=== PATIENT | female | born 1950 | race Caucasian/White ===

== ENCOUNTER → 2016-11-12 | Outpatient (CLI) | payer BC ==
[~2016-11-12] MED LIST: ASPCH81X PO; ATV1 PO; CLOP1TAB15 PO; CYAN50TA2 PO; MULT-506 PO; SNG10 PO; [UNRECOGNIZED DRUG - CODE] PO
== END | disposition home or self-care (01) ==
LOC: C.PAPS 14:55
PROVIDERS: ATTEND Obstetrics & Gynecology
DX: Z01.419 Encounter for gynecological examination (general) (routine) without abnormal findings (principal)

== ENCOUNTER → 2017-01-14 | Outpatient (CLI) | payer BC | END | disposition home or self-care (01) | LOC: C.LAB1850 11:10 | PROVIDERS: ATTEND Family Medicine | DX: Z11.59 Encounter for screening for other viral diseases (principal) ==

== ENCOUNTER → 2017-01-28 | Day surgery (SDC) | payer BC ==
[2017-01-15 15:02] VITALS: Ht 165.1 cm; Wt 54.5 kg
[~2017-01-28] VITALS: Ht 165.1 cm; Wt 54.5 kg
[~2017-01-28] MED LIST changes: +IOPAMIDOL INJ 61% 15 ML VIAL ONE; +LIDOCAINE HCL 1% MPF 5 ML VIAL ONE; +SODIUM CHLORIDE 0.9% INJ 10 ML VIAL ONE
--- NOTE | 2017-01-28 14:19 | History & Physical Bridge - [place] ---
H&P Re-Evaluation Bridge Note: I have examined the patient, reviewed the History & Physical and in the interval since the performance of the History & Physical I have noted the following changes of clinical significance: No changes noted
[2017-01-28 14:47] VITALS: TEMP 37.7
--- NOTE | 2017-01-28 14:48 | Discharge Instructions ---
Discharge Instructions Date of Service Jan 28, 2017. Visit Reason for Visit: Lumbar Radiculopathy Discharge Discharge Diagnosis / Problem: right buttocks pain Discharge Goals Goal(s): Decrease discomfort, Improve function Activity Recommendations Activity Limitations: resume your previous activity Anesthesia . Post Anesthesia Instructions: If you have had General Anesthesia or IV Sedation: * Do not drive today. * Resume driving when surgeon permits. * Do not make important decisions or sign legal documents today. * Call surgeon for: 1. Temperature elevations greater than 101 degrees F. 2. Uncontrollable pain. 3. Excessive bleeding. 4. Persistent nausea and vomiting. 5. Medication intolerance (nausea, vomiting or rash). * For nausea and vomiting use only clear liquids such as: tea, soda, bouillon until nausea subsides, then gradually increase diet as tolerated. * If you have any concerns or questions, call your surgeon's office. If physician is unavailable and it is an emergency, call 911 or go to the nearest emergency room. . Diet Recommendations Recommended Home Diet: resume previous diet Procedures Procedures Performed: Lumbar Epidural Steroid Injection Pending Studies Studies pending at discharge: no Medical Emergencies . Who to Call and When: Medical Emergencies: If at any time you feel your situation is an emergency, please call 911 immediately. . Non-Emergent Contact Non-Emergency issues call your: Specialist . . "Provider Documentation" section prepared by Martin Cruz. .
--- NOTE | 2017-01-28 14:58 | OPERATIVE REPORT ---
DATE OF OPERATION: 01/28/2017 PREOPERATIVE DIAGNOSIS: L5-S1 annular tear with right proximal radiculopathy. POSTOPERATIVE DIAGNOSIS: Same. PROCEDURE: Caudal epidural steroid injection under fluoroscopic guidance. INDICATIONS: The patient is a 66-year-old white female who has previously responded favorably to epidurals done about 3 years ago. She is describing burning pain into the buttocks area which is likely coming from an L5-S1 annular tear. She presents today for an epidural injection and will be given via the caudal approach as she is on Plavix with a history of a brain aneurysm. PHYSICAL EXAMINATION: Pleasant female seated comfortably. She has tenderness to palpation over the flank area and the top of the buttocks area, SI joint is nontender. She has normal motor and sensory exam with negative seated straight leg raises. CONSENT: Verbal and written consent was obtained from the patient. Risks and benefits were reviewed. Risks include but are not limited to abscess and allergic reaction. The patient wishes to proceed. PROCEDURE: The patient was taken back to the special procedures room of the [facility] where she was maintained in a prone position. Backside was cleansed with Betadine x3 and a dry sterile dressing was applied. Fluoroscope was used to identify the sacral hiatus in the lateral view and the overlying skin was anesthetized with 3 mL of lidocaine 1% with a 25 gauge 1.5-inch needle. A 25 gauge 3.5 inch spinal needle was then directed into the sacral canal under lateral fluoroscopic guidance. The patient then underwent injection after negative aspiration of 40 mg of Depo-Medrol and 4 mL of preservative free sodium chloride. Injection was well tolerated. DISPOSITION: 1. The patient is taken out into the discharge recovery area where she will be discharged home once discharge criteria have been met. 2. Follow up in the [facility] office in 4 weeks' time. I attest to the content of the Intraoperative Record and any orders documented therein. Any exception s are noted below.
[2017-01-28 15:00] VITALS: BP 108/66; PULSE 65; O2SAT 97
== END | disposition home or self-care (01) ==
LOC: X.SURG 13:53
PROVIDERS: ATTEND Physical Medicine & Rehabilitation
DX: M51.17 Intervertebral disc disorders with radiculopathy, lumbosacral region (principal)

== ENCOUNTER → 2017-02-06 | Outpatient (CLI) | payer BC ==
[~2017-02-06] MED LIST changes: -IOPAMIDOL INJ 61% 15 ML VIAL ONE; -LIDOCAINE HCL 1% MPF 5 ML VIAL ONE; -SODIUM CHLORIDE 0.9% INJ 10 ML VIAL ONE
--- NOTE | 2017-02-06 11:11 | DIAGNOSTIC IMAGING REPORT ---
RIGHT KNEE 4 VIEWS; LEFT KNEE 4 VIEWS CLINICAL HISTORY: Bilateral knee pain. FINDINGS: An AP standing view of both knees, a tunnel view of both knees, a sunrise view of both knees, with lateral views of the right and left knee are compared to study dated 10/01/2015. The skeletal structures are osteopenic. No fracture is seen. Right knee: There is mild narrowing seen in the medial lateral compartments. Mild to moderate narrowing is noted at the patellofemoral articulation. No joint effusion is identified. There is no evidence of osteochondral defect on the tunnel image. Mild posterior soft tissue edema is suggested. Left knee: There is mild degenerative narrowing in the medial and lateral compartments. Mild to moderate narrowing is seen at the patellofemoral articulation. A calcified fabella is incidentally noted. There is no evidence of osteochondral defect in the tunnel image. No large joint effusion is identified. The overlying soft tissues are within normal limits. IMPRESSION: 1. Generalized osteopenia. No acute bony abnormality is seen in either knee. 2. Mild arthritic change as above. 3. Soft tissue edema is suggested posterior to the right knee. Clinical correlation will be required. Electronically signed by: Baldomero Jules M.D. 02/06/2017 11:09 AM Dictated Date/Time: 02/06/2017 11:06 AM
== END | disposition home or self-care (01) ==
LOC: C.RDSM 13:58
PROVIDERS: ATTEND Physician Assistant
DX: M25.561 Pain in right knee (principal); M85.862 Other specified disorders of bone density and structure, left lower leg; M85.861 Other specified disorders of bone density and structure, right lower leg

== ENCOUNTER → 2017-04-14 | Outpatient (CLI) | payer BC ==
--- NOTE | 2017-04-15 07:55 | MAMMOGRAPHY REPORT ---
BILATERAL DIGITAL SCREENING MAMMOGRAM TOMOSYNTHESIS WITH CAD: 04/14/2017 CLINICAL HISTORY: Routine screening. Patient has no complaints. TECHNIQUE: Breast tomosynthesis in addition to standard 2D mammography was performed. Current study was also evaluated with a Computer Aided Detection (CAD) system. COMPARISON: Comparison is made to exams dated: 04/11/2016 mammogram, 04/09/2015 mammogram, 09/21/2014 ma mmogram, 09/18/2014 mammogram, 03/04/2012 mammogram, and 02/27/2011 mammogram - [facility]. BREAST COMPOSITION: The tissue of both breasts is heterogeneously dense, which may obscure small mas ses. FINDINGS: There is a stable dumbbell-shaped metallic biopsy marker in the upper outer quadrant of the left breast. Stable grouped round and punctate microcalcifications in the posterior retroareolar ri ght breast. No new suspicious mass, architectural distortion or cluster of microcalcifications is se en. IMPRESSION: ACR BI-RADS CATEGORY 1: NEGATIVE There is no mammographic evidence of malignancy. A 1 year screening mammogram is recommended. The pa tient will receive written notification of the results. Approximately 10% of breast cancers are not detected with mammography. A negative mammographic report should not delay biopsy if a clinically suggestive mass is present. Ayde Joe M.D. ay/:04/14/2017 16:15:51 Documentation Writer: Carey CUNHA(Fam)([employer])([place]), [facility] letter sent: Normal 1/2 BI-RADS Code: ACR BI-RADS Category 1: Negative
== END | disposition home or self-care (01) ==
LOC: C.MAMM 10:58
PROVIDERS: ATTEND Obstetrics & Gynecology
DX: Z12.31 Encounter for screening mammogram for malignant neoplasm of breast (principal)

== ENCOUNTER → 2017-05-29 | Outpatient (CLI) | payer BC ==
[2017-05-29 10:42] LABS: BASO % 0.5 %; BASO ABS # 0.03 K/uL (0-0.2); COMPLETE YES; EOS % 2.5 %; HEMATOCRIT 44.1 % (37-47); IG% 0.2 %; LYMPH % 37.9 %; LYMPH ABS # 2.47 K/uL (1.2-3.4); MEAN CELL VOLUME 89.8 fL (80-100); MEAN CORPUSCULAR HEMOGLOBIN 29.3 pg (25-34); MEAN CORPUSCULAR HGB CONC 32.7 g/dl (32-36); MEAN PLATELET VOLUME 9.3 fL (7.4-10.4); MONO % 7.7 %; NEUT % 51.2 %; PLATELET COUNT 199 K/uL (130-400); RED BLOOD COUNT 4.91 M/uL (4.2-5.4); WHITE BLOOD COUNT 6.52 K/uL (4.8-10.8)
[2017-05-29 12:22] LABS: ALB/GLOB RATIO 1.4 (0.9-2); ALKALINE PHOSPHATASE 63 U/L (45-117); BLOOD UREA NITROGEN 13 mg/dl (7-18); BUN/CREATININE RATIO 18.4 (10-20); CALCIUM 8.9 mg/dl (8.5-10.1); CARBON DIOXIDE 24 mmol/L (21-32); CHLORIDE 108 mmol/L (98-107); CHOLESTEROL 167 mg/dl (0-200); CHOLESTEROL/HDL RATIO 2.3; CREATININE 0.71 mg/dl (0.60-1.20); GLUCOSE 90 mg/dl (70-99); HDL CHOLESTEROL 74 mg/dl; LDL CHOLESTEROL CALCULATED 75 mg/dl; POTASSIUM 4.4 mmol/L (3.5-5.1); SODIUM 141 mmol/L (136-145); TRIGLYCERIDES 88 mg/dl (0-150); VERY LOW DENSITY LIPOPROT CALC 18 mg/dl
[2017-05-29 12:28] LABS: ALT/SGPT 21 U/L (12-78); AST/SGOT 15 U/L (15-37); TOTAL IRON BINDING CAPACITY 368 mcg/dl (250-450)
== END | disposition home or self-care (01) ==
LOC: C.LAB1850 09:22
PROVIDERS: ATTEND Nurse Practitioner Adult Health
DX: F51.5 Nightmare disorder (principal); G47.9 Sleep disorder, unspecified; R42 Dizziness and giddiness; J45.909 Unspecified asthma, uncomplicated

== ENCOUNTER → 2017-11-17 | Outpatient (CLI) | payer BC | END | disposition home or self-care (01) | LOC: C.PAPS 07:59 | PROVIDERS: ATTEND Obstetrics & Gynecology | DX: Z01.419 Encounter for gynecological examination (general) (routine) without abnormal findings (principal) ==

== ENCOUNTER → 2017-12-30 | Day surgery (SDC) | payer BC ==
[2017-12-08 14:53] VITALS: Ht 165.1 cm; Wt 54.5 kg
[~2017-12-30] VITALS: Ht 165.1 cm; Wt 54.5 kg
[~2017-12-30] MED LIST changes: -ASPCH81X PO; +ASPI-435; -ATV1 PO; +BIOT1CAP3 PO; +CHOL100010 PO; +LIDOCAINE HCL 1% MPF 5 ML VIAL ONE; +LORA-741 PO; +MONT1TAB3 PO; -SNG10 PO; +SODIUM CHLORIDE 0.9% INJ 10 ML VIAL ONE
--- NOTE | 2017-12-30 14:21 | [facility] Post Operative Brief Note ---
Immediate Operative Summary Operative Date December 30, 2017. Pre-Operative Diagnosis LUMBAR DISC DISEASE WITH RECENT RIGHT LOWER EXTREMITY EXACERBATION Post-Operative Diagnosis LUMBAR DISC DISEASE WITH RECENT RIGHT LOWER EXTREMITY EXACERBATION Procedure(s) Performed CAUDAL EPIDURAL STEROID INJECTION Surgeon DR. Kate BLANCO Presser [employer] Surgeon(s) None Estimated Blood Loss 0 Findings Consistent with Post-Op Diagnosis Specimens NA Drains None Anesthesia Type Local Complication(s) none Disposition Disposition:
--- NOTE | 2017-12-30 14:22 | Discharge Instructions ---
Discharge Instructions Date of Service December 30, 2017. Visit Reason for Visit: Lumbar Radiculopathy Discharge Discharge Diagnosis / Problem: right leg pain Discharge Goals Goal(s): Decrease discomfort, Improve function Activity Recommendations Activity Limitations: resume your previous activity Anesthesia . Post Anesthesia Instructions: If you have had General Anesthesia or IV Sedation: * Do not drive today. * Resume driving when surgeon permits. * Do not make important decisions or sign legal documents today. * Call surgeon for: 1. Temperature elevations greater than 101 degrees F. 2. Uncontrollable pain. 3. Excessive bleeding. 4. Persistent nausea and vomiting. 5. Medication intolerance (nausea, vomiting or rash). * For nausea and vomiting use only clear liquids such as: tea, soda, bouillon until nausea subsides, then gradually increase diet as tolerated. * If you have any concerns or questions, call your surgeon's office. If physician is unavailable and it is an emergency, call 911 or go to the nearest emergency room. . Diet Recommendations Recommended Home Diet: resume previous diet Procedures Procedures Performed: CAUDAL EPIDURAL STEROID INJECTION Pending Studies Studies pending at discharge: no Medical Emergencies . Who to Call and When: Medical Emergencies: If at any time you feel your situation is an emergency, please call 911 immediately. . Non-Emergent Contact Non-Emergency issues call your: Specialist . . "Provider Documentation" section prepared by Martin Cruz. .
[2017-12-30 14:25] VITALS: TEMP 36.3
[2017-12-30 14:50] VITALS: BP 108/67; PULSE 71; O2SAT 96
--- NOTE | 2017-12-30 15:56 | OPERATIVE REPORT ---
DATE OF OPERATION: 12/30/2017 PREOPERATIVE DIAGNOSIS: Lumbar disc disease with right lower extremity, rule out L5 radiculopathy. POSTOPERATIVE DIAGNOSIS: Lumbar disc disease with right lower extremity, rule out L5 radiculopathy. PROCEDURE: Caudal epidural steroid injection under fluoroscopic guidance. INDICATIONS: The patient is a 67-year-old white female. She has responded favorably to caudal epidurals in the past, last one was given at the end of summer or early fall and she has done very well. She is having increasing radicular pain and presents today for an injection. PHYSICAL EXAMINATION: Pleasant female, seated comfortably, moving her leg in a mainly flexed position. She had some mild sciatic notch sensitivity on the right side, limitations with forward flexion. No focal weakness. Positive seated straight leg raise. CONSENT: Verbal and written consent was obtained from the patient. Risks and benefits were reviewed. Risks include but are not limited to epidural abscess and allergic reaction. The patient wishes to proceed. DESCRIPTION OF PROCEDURE: The patient was taken back to the special procedures room of the [facility] where she was maintained in a prone position. Backside was cleansed with Betadine x3 and a dry sterile dressing was applied. Fluoroscope was used to identify the sacral hiatus and the overlying skin was anesthetized with 2 mL of lidocaine 1% with a 25 gauge 1.5-inch needle. A 25 gauge 3.5 inch spinal needle was then directed under lateral fluoroscopic guidance into the sacral hiatus into the canal. She then underwent injection after negative aspiration of 40 mg of Depo-Medrol and 4 mL of preservative free sodium chloride. Injection was well tolerated. DISPOSITION: 1. The patient is taken out into the discharge recovery area where she will be discharged home once discharge criteria met. 2. Follow up in the [facility] office in 4 weeks' time. I attest to the content of the Intraoperative Record and any orders documented therein. Any exception s are noted below.
== END | disposition home or self-care (01) ==
LOC: X.SURG 13:21
PROVIDERS: ATTEND Physical Medicine & Rehabilitation
DX: M51.36 Other intervertebral disc degeneration, lumbar region (principal); M54.16 Radiculopathy, lumbar region; Z79.02 Long term (current) use of antithrombotics/antiplatelets; Z79.899 Other long term (current) drug therapy

== ENCOUNTER 2023-10-30 06:10 | Observation (INO) ==
--- NOTE | 2023-10-30 07:07 | Emergency Department Note ---
Impression & Plan Chest pain ED Provider Note ED Provider Note NAME: YANCY KIM AGE:73 SEX: Female : 1950 ARRIVES VIA: Private vehicle INFORMANT: Patient ED PROVIDER(s): Kelly Eastman DO CHIEF COMPLAINT: Chest pain HPI: This is a 73-year-old female who presents emerged from due to concern for intermittent episodes of chest pain over the last week. She states she and her were in [place] last week where they typically winter and she had a sudden episode in the middle the night of sharp central chest pain with radiation into bilateral arms where she felt dizzy, sweaty, and nauseous. She states this occurred while she was seated on the toilet, but she denies pushing or straining. She states symptoms lasted about 5 minutes and then began to ranjith. She states she was very tired the whole next day and had a recurrent episode the following night with similar symptoms and time frame. She states it recurred a second time the following night and she went to the emergency department in [place]. at bedside presents records from there including labs and CTA of her coronary arteries. Patient's labs and imaging reassuring with only mild atherosclerotic changes noted on the CT of her coronaries. Patient was instructed to begin taking low-dose aspirin, daily Lipitor, and increase her Protonix to twice daily until she could be seen in follow-up. Patient does have a history of GERD and does take Protonix daily. She had not noticed any increase in GERD like symptoms recently, no recent dietary change. Patient does not routinely follow with cardiology. She did see cable stretcher and tester, rheumatology, and orthopedics yesterday as part of other previously scheduled evaluations. She does have a history of Raynaud's. No other recent change in activity or trauma. No recent fevers, chills, or URI symptoms. PAST MEDICAL HISTORY:See Below PAST SURGICAL HISTORY:See Below FAMILY HISTORY:See Below SOCIAL HISTORY:See Below HOME MEDICATIONS:See Below ALLERGIES:See Below VITALS:See Below PHYSICAL EXAMINATION: GENERAL: alert, well appearing, well nourished, no distress, non-toxic EYE EXAM: normal conjunctiva, PERRL and EOM's grossly intact OROPHARYNX: no exudate, no erythema, lips, buccal mucosa, and tongue normal and mucous membranes are moist NECK: supple, no nuchal rigidity, no adenopathy, non-tender LUNGS: Clear to auscultation. Normal chest wall mechanics, no w/r/r HEART: no murmurs, S1 normal and S2 normal, no reproducible pain with palpation ABDOMEN: abdomen soft, non-tender, normo-active bowel sounds, no masses, no rebound or guarding. SKIN: no rashes, petechiae, orbruising UPPER EXTREMITIES: upper extremities are grossly normal. FROM, nml pulses b/l. LOWER EXTREMITIES: No pitting edema. FROM, nml pulses b/l. NEURO EXAM: Normal sensorium, cranial nerves II-XII grossly intact, normal speech, no facial droop,nogross weakness of arms, no gross weakness of legs. Gross sensation intact. No ataxia. Vital Signs: reviewed and remarkable Differential Diagnosis: acute coronary syndrome, pericarditis, pulmonary embolus, aortic dissection, pneumonia, pneumothorax, musculoskeletal pain, shingles, GERD, GI bleed, as well as others were considered MEDICAL DECISION MAKING: THis is a 73 yo female who presents with intermittent, brief, self limiting episodes of sharp central chest pain over the course of the last week that were not all related to exertion. VS stable, patient afebrile, and she was pain free on my evaluation. Labs drawn and sent, IV established, EKG performed and interpreted at bedside, and patient placed on telemetry. GIven consideration for additional etiology, we discussed CTA of her chest. Initial troponin negative and patient sent for CTA. Patient did have one episode of pain here. We did give her maalox in case of GI component given atypical quality of episodes. Labs and imaging reassuring and I contacted Dr. Guzman via Orestes text to ask about availability of stress testing today. This was arranged, 2nd troponin drawn and sent, and patient sent for stress test. Troponin came back elevated compared to the first and cards notified. Echo performed instead and cardiology consulted. Cardiology felt patient should have cardiac cath and did advise initiation of heparin while awaiting cath. Patient remained stable in the ER. We did discuss risks of heparin but given likely short term use this afternoon until cath I felt benefits outweigh risks. Late afternoon when patient was being moved to ICU bed that was available, she developed vaginal bleeding. VS stable and patient had no other c/o pain. Heparin paused for patient to be transferred as given she had an available bed in a higher level of monitoring and likely bleeding from site noted by cable stretcher and tester yesterday, I felt patient was better served in the ICU and that this was less likely to be life threatening. I notified hospitalist of this change as nursing staff did not notify them and we did not know how quickly she was going to be taken for cath. Consultation(s): 1100: Discussed with Dr. Guzman, cardiology, via [facility]restes text. 1148: Dr. Guzman has seen in consult. Recommends medical admission and plan for cardiac catheterization this afternoon. 1236: Discussed with Dr. Corona, [place] hospitalist, for additional evaluation. ER Treatment Provided: See below Diagnostics Interpreted By Me: -ECG: Normal sinus at 71, normal axis, normal intervals, no acute ST/T wave changes -Cardiac Monitoring: An order was placed for continuous cardiac monitoring. The monitor shows a rate of 80 with normal sinus rhythm. -Laboratory studies: As stated above and show below. Triage Nursing Note Reviewed Prior/Outside Records Reviewed Critical Care: Critical care of 48 min performed to assess and manage high likelihood of life- threatening CAD, involving labs and imaging performed with assessment to evaluate chest pain diagnosis with frequent reassessment. This time includes bedside time, treatment discussions with patient/family/consultants, documentation time and excludes procedure time. Past Med/Surg History Medical History Vertigo Lumbar radiculopathy Degenerative disc disease Hx of basal cell carcinoma Chronic back pain GERD (gastroesophageal reflux disease) Scoliosis Osteoarthritis Actinic keratosis HX Asthma SINGULAR CONTROLS AND PRN inhaler, uses < once month, only triggered by allergens Cerebral arterial aneurysm (Carotid-ophthalmic artery region), treated initially with a Pipeline flow diverter 08/2015, with re-do 02/2017 when aneurysm did not occlude ([facility]). Second opinion 09/2019, MRA showed persistent flow into the aneurysm, although smaller than previous. Last neurosurg visit 04/10/20 -- discussed retreatment with new flow diverter device vs continued observation; pt considering options, to f/u in 1 year. LAST NEURO VISIT - OCTOBER 2021 - ANNEURSYM GOT SMALLER FOR THE FIRST TIME IN 5 YR Mammogram abnormal Osteopenia Tinnitus of both ears Surgical History History of hysteroscopy S/P aneurysm repair brain aneurysm repair x 2 in 2015 & 2017; reports still an aneurysm present and [place] [facility]; last check 03/2020. LAST CHECK OCTOBER 2021 MRA'S EVERY 6 MON TO EVERY YR - MOST RECENT MRA OCTOBER 2021 Difficult airway for intubation small airway per pt History of esophagogastroduodenoscopy (EGD) (06/2019) Family history of reaction to anesthesia MOTHER-CONFUSION/DELERIUM POST OP AFTER OPEN HEART SURGERY/VALVE REPLACEMENTS History of breast biopsy BENIGN Lumbar spine tumor REMOVED "BENIGN" History of colonoscopy (06/2013) History of rhinoplasty History of tonsillectomy History of section 1985 Family History Father Colorectal cancer Mother Myocardial infarction Heart disease Cerebral aneurysm Grandmother (Maternal) Breast cancer Denies family history of Ovarian cancer Prostate cancer Social History Smoking Status: Never smoker Second Hand Exposure: No; Hx Alcohol Use: Yes Alcohol type: wine and hard liquor Alcohol Intake Frequency: 2-3 x/Week Hx Substance Use: No Preferred Language: [place] Communication Ability: Effective Visual Impairment: No Limitations Hearing Ability: Normal Barrel Leveler Required: No Beliefs That Will Affect Care: Yarsani Yarsani Beliefs: Yazdanism marital status: Current Living Situation: Spouse current occupational status: retired How many Children do You have: 1 Feels Safe at Home: Yes Childhood Exposure to Second-Hand Smoke: Yes Diet: regular caffeine: Yes during the past year weight has: increased > 10 lbs Dental Care, Regularly: Yes Physical Activity Frequency: Daily Seatbelt Use: always Sunscreen Use: Yes Assistive Devices: Glasses Allergies Allergies Allergy/AdvReac Type Severity Reaction Status Date / Time No Known Allergies Allergy Verified 10/29/23 14:54 Home Meds Home Medications Medication Instructions Recorded Confirmed acyclovir 5 % topical ointment 1 appln topical UD PRN herpes 05/25/19 10/30/23 labialis #1 g cholecalciferol (vitamin D3) 125 4,000 units PO QAM 05/25/19 10/30/23 mcg (5,000 unit) tablet cyanocobalamin (vitamin B-12) 100 2,000 mcg PO QAM 05/25/19 10/30/23 mcg tablet fluticasone propionate 50 2 sprays intranasal UD PRN nasal 05/25/19 10/30/23 mcg/actuation nasal congestion spray,suspension hydrocortisone acetate 25 mg 25 mg ID UD PRN hemorrhoids #60 ea 05/25/19 10/30/23 rectal suppository sodium chloride 0.65 % nasal spray 1 sprays intranasal UD PRN dry 05/25/19 10/30/23 aerosol nasal passages Lactobacillus acidophilus 10 10,000 mmu cells PO DAILY 12/05/20 10/30/23 billion cell capsule (Probiotic) acetaminophen 500 mg tablet 1,000 mg PO UD PRN Pain 12/05/20 10/30/23 (Tylenol Extra Strength) elderberry fruit 200 mg capsule 200 mg PO DAILY 12/05/20 10/30/23 multivitamin 1 cap PO DAILY 12/05/20 10/30/23 diclofenac sodium 1 % topical gel 4 g topical UD PRN Pain 01/17/22 10/30/23 meclizine 25 mg chewable tablet 25 mg PO UD PRN Vertigo 01/17/22 10/30/23 cyclobenzaprine 5 mg tablet 5 mg PO UD PRN Pain 06/13/22 10/30/23 methocarbamol 500 mg tablet 500 mg PO UD PRN Pain 06/13/22 10/30/23 aspirin 81 mg tablet,delayed 81 mg PO DAILY 10/29/23 10/30/23 release atorvastatin 20 mg tablet (Lipitor) 20 mg PO DAILY 10/29/23 10/30/23 budesonide-formoterol HFA 80 2 puff inhalation BID PRN Other 10/29/23 10/30/23 mcg-4.5 mcg/actuation aerosol inhaler (Symbicort) pantoprazole 40 mg tablet,delayed 40 mg .Route BID 10/29/23 10/30/23 release Previous Rx's Medication Instructions Recorded alprazolam 0.5 mg tablet 0.5 mg PO BID PRN tinnitus #15 tabs 03/31/22 valacyclovir 1 gram tablet 1,000 mg PO DAILY PRN Cold Sores 04/28/22 #30 tabs clindamycin phosphate 1 % lotion 1 applic topical BID to axilla #60 10/06/22 mL Mimvey 1 mg-0.5 mg tablet 1 tab PO QPM #84 tabs 01/30/23 (estradiol-norethindrone acet) triamcinolone acetonide 0.5 % 1 applic topical DAILY #30 grams 03/16/23 topical cream albuterol sulfate 90 mcg/actuation 2 puff inhalation Q6H PRN SHORT OF 05/25/23 aerosol inhaler BREATH #8.5 grams lorazepam 0.5 mg tablet 0.5 - 1 mg (1 - 2 x 0.5 mg) PO HS 08/06/23 PRN vertigo #60 tabs fluconazole 100 mg tablet 100 mg PO DAILY 7 days #7 tabs 08/18/23 (Diflucan) nystatin 100,000 unit/gram topical 1 applic topical TID #15 grams 08/18/23 ointment montelukast 10 mg tablet 10 mg PO HS asthma #90 tabs 10/30/23 Results & Data (ED) Vital Signs Vital Signs - 24 hr 10/30/23 11:52 10/30/23 12:00 10/30/23 12:00 Pulse Rate 82 67 Pulse Rate [Apical] Pulse Rate from SpO2 Sensor 66 Respiratory Rate 13 18 Respiratory Effort / Characteristics Respiratory Depth Respiratory Pattern Blood Pressure 111/60 Blood Pressure [Left Arm] Blood Pressure Mean 86 Blood Pressure Mean [Left Arm] Pulse Oximetry 98 Oxygen Delivery Method 10/30/23 12:33 10/30/23 12:35 10/30/23 12:35 Pulse Rate 73 68 Pulse Rate [Apical] 68 Pulse Rate from SpO2 Sensor 68 Respiratory Rate 30 H 17 17 Respiratory Effort / Characteristics Non-Labored Respiratory Depth Normal Respiratory Pattern Regular Blood Pressure Blood Pressure [Left Arm] 121/68 Blood Pressure Mean Blood Pressure Mean [Left Arm] 85 Pulse Oximetry 96 95 Oxygen Delivery Method Room Air 10/30/23 12:35 10/30/23 13:05 10/30/23 13:11 Pulse Rate 74 Pulse Rate [Apical] Pulse Rate from SpO2 Sensor 73 Respiratory Rate 17 Respiratory Effort / Characteristics Respiratory Depth Respiratory Pattern Blood Pressure 121/68 99/78 L Blood Pressure [Left Arm] Blood Pressure Mean 91 82 Blood Pressure Mean [Left Arm] Pulse Oximetry 94 Oxygen Delivery Method 10/30/23 13:11 10/30/23 13:29 10/30/23 13:29 Pulse Rate 69 71 Pulse Rate [Apical] Pulse Rate from SpO2 Sensor 63 68 Respiratory Rate 21 16 Respiratory Effort / Characteristics Respiratory Depth Respiratory Pattern Blood Pressure 133/96 Blood Pressure [Left Arm] Blood Pressure Mean 102 Blood Pressure Mean [Left Arm] Pulse Oximetry 97 97 Oxygen Delivery Method 10/30/23 13:30 10/30/23 14:00 Pulse Rate 65 63 Pulse Rate [Apical] Pulse Rate from SpO2 Sensor 65 63 Respiratory Rate 20 14 Respiratory Effort / Characteristics Respiratory Depth Respiratory Pattern Blood Pressure Blood Pressure [Left Arm] Blood Pressure Mean Blood Pressure Mean [Left Arm] Pulse Oximetry 97 98 Oxygen Delivery Method Laboratory Data 10/31/23 03:55 10/31/23 03:55 Lab Results 10/30/23 10/30/23 Range/Units 06:29 09:40 WBC 8.21 (4.8-10.8) K/ul RBC 4.65 (4.20-5.40) M/uL Hgb 14.1 (12.0-16.0) g/dl Hct 41.5 (37.0-47.0) % MCV 89.2 (80.0-100.0) fL MCH 30.3 (25.0-34.0) pg MCHC 34.0 (32.0-36.0) g/dL RDW Std Deviation 43.2 (36.4-46.3) fL RDW Coeff of Sheela 13.2 (11.5-14.5) % Plt Count 207 (130-400) K/uL MPV 9.6 (9.4-12.4) fL Immature Gran % (Auto) 0.2 % Neut % (Auto) 55.1 % Lymph % (Auto) 35.1 % [place] % (Auto) 7.1 % Eos % (Auto) 1.9 % Baso % (Auto) 0.6 % Neut # (Auto) 4.52 (1.40-6.50) K/uL Lymph # (Auto) 2.88 (1.20-3.40) K/uL [place] # (Auto) 0.58 (0.11-0.59) K/uL Eos # (Auto) 0.16 (0.00-0.50) K/uL Baso # (Auto) 0.05 (0.00-0.20) K/uL Immature Gran # (Auto) 0.02 (0.01-0.20) K/uL PT 10.6 (9.0-12.0) Seconds INR 1.0 (0.9-1.1) APTT 26 (21-31) Seconds PTT Ratio 0.9 Sodium 138 (136-145) mmol/L Potassium 4.1 (3.5-5.1) mmol/L Chloride 106 (98-107) mmol/L Carbon Dioxide 25 (21-32) mmol/L Anion Gap 7 (3-11) BUN 14 (6-23) mg/dl Creatinine 0.78 (0.6-1.2) mg/dl Est Cr Clr Drug Dosing 60.7 ml/min Est GFR ( Amer) 88.6 ml/min Est GFR (Non-Af Amer) 76.5 ml/min BUN/Creatinine Ratio 17.9 (10-20) Glucose 100 H (70-99(Fasting)) mg/dl Calcium 9.1 (8.6-10.3) mg/dl Magnesium 2.0 (1.7-2.4) mg/dl Total Bilirubin 0.4 (0.2-1.0) mg/dl AST 19 (13-39) U/L ALT 17 (7-52) U/L Alkaline Phosphatase 45 (34-104) U/L Troponin I High Sens 12.7 33.9 H D (0-14) pg/ml Total Protein 6.8 (6.0-8.3) gm/dl Albumin 4.6 (3.4-5.0) gm/dl Globulin 2.2 L (2.5-4.0) gm/dl Albumin/Globulin Ratio 2.1 H (0.9-2) Lipase 16 (11-82) U/L TSH 7.294 H (0.300-4.500) uIu/ml Free T4 0.86 (0.61-1.60) ng/dl Administered Medications Aspirin (Aspirin 81 Mg Ectab) 81 mg PO DAILY [facility] Stop: 11/30/23 08:59 Last Admin: 10/31/23 09:46 Dose: 81 mg Documented By: KORTNEY Atorvastatin Calcium (Atorvastatin 40 Mg Tab) 80 mg PO [facility] Stop: 11/30/23 08:59 Last Admin: 10/31/23 08:53 Dose: 80 mg Documented By: KORTNEY Clopidogrel Bisulfate (Clopidogrel Bisulfate 75 Mg Tab) 75 mg PO QAM [facility] Stop: 11/30/23 08:59 Last Admin: 10/31/23 08:52 Dose: 75 mg Documented By: KORTNEY Montelukast Sodium (Montelukast Sodium 10 Mg Tablet) 10 mg PO HS FREEMAN Stop: 11/29/23 22:14 Last Admin: 10/30/23 23:37 Dose: 10 mg Documented By: PANCHITO Mimvey (Estradiol And Norethindrone 1mg/0.5mg) Tablet-- Non-Formulary Patient's Own Med 1 each PO HS FREEMAN Stop: 11/29/23 21:59 Last Admin: 10/30/23 22:08 Dose: 1 tabs Documented By: PANCHITO Pantoprazole Sodium (Pantoprazole 40 Mg Tab) 40 mg PO BID [facility]AN Stop: 11/29/23 20:59 Last Admin: 10/31/23 08:53 Dose: 40 mg Documented By: Admin: 10/30/23 20:50 Dose: 40 mg Documented By: PANCHITO Triamcinolone Acetonide (Triamcinolone Acet 0.5% Cr 15 Gm Tube) 1 appln TOP DAILY [facility]AN Stop: 11/30/23 08:59 Last Admin: 10/31/23 08:54 Dose: 1 appln Documented By: KORTNEY Discontinued Medications Al Hydrox/Mg Hydrox/Simethicone (Aluminum/Magnesium Susp 30 Ml Udc) 15 ml PO NOW STA Stop: 10/30/23 09:19 Last Admin: 10/30/23 09:27 Dose: 15 ml Documented By: TI Aspirin (Aspirin 81 Mg Chew) Confirm Administered Dose 324 mg .ROUTE .STK-MED ONE Stop: 10/30/23 18:02 Last Admin: 10/30/23 18:57 Dose: 324 mg Documented By: NATACHA Aspirin (Aspirin 81 Mg Chew) Confirm Administered Dose 81 mg .ROUTE .STK-MED ONE Stop: 10/31/23 08:57 Last Admin: 10/31/23 09:02 Dose: Not Given Documented By: KORTNEY Clopidogrel Bisulfate (Clopidogrel Bisulfate 300 Mg Tab) Confirm Administered Dose 600 mg .ROUTE .STK-MED ONE Stop: 10/30/23 19:17 Last Admin: 10/30/23 19:17 Dose: 600 mg Documented By: NATACHA Fentanyl Citrate (Fentanyl Citrate Pf 100 Mcg/2 Ml Vial) Confirm Administered Dose 100 mcg .ROUTE .STK-MED ONE Stop: 10/30/23 17:34 Last Admin: 10/30/23 18:57 Dose: 100 mcg Documented By: CHERELLEF Fentanyl Citrate (Fentanyl Citrate Pf 100 Mcg/2 Ml Vial) Confirm Administered Dose 100 mcg .ROUTE .STK-MED ONE Stop: 10/30/23 18:45 Last Increment: 10/30/23 19:16 Dose: 50 mcg Documented By: NATACHA Heparin Sodium (Porcine) (Heparin Sod (Porcine) 1000 Unit/Ml) 1 units IV NOW ONE Stop: 10/30/23 12:24 Last Admin: 10/30/23 13:42 Dose: Not Given Documented By: N Heparin Sodium (Porcine) (Heparin Sod (Porcine) 1000 Unit/Ml) Confirm Administered Dose 1,000 units .ROUTE .STK-MED ONE Stop: 10/30/23 13:16 Last Admin: 10/30/23 13:17 Dose: 3,000 units Documented By: CHRISTINA Co-signed By: LEIGH Heparin Sodium (Porcine) (Heparin (Porcine) 1000 Unit/Ml 10 Ml (Surgical Services Asst Use Only)) Confirm Administered Dose 10,000 units .ROUTE .STK-MED ONE Stop: 10/30/23 17:34 Last Admin: 10/30/23 19:15 Dose: 7,500 units Documented By: NATACHA Heparin Sodium/Dextrose (Heparin Iv Adult Wt-Based Low-Dose W/ Initial Bolus Protocol) 1 each IV NOW STA; Protocol Stop: 10/30/23 12:09 Last Admin: 10/30/23 13:18 Dose: Not Given Documented By: Kg Heparin Sodium/Sodium Chloride (Heparin In Nss Infusion 1000 Unit/500 Ml (2 U/Ml) Bag) Confirm Administered Dose 3,000 units IV .STK-MED ONE Stop: 10/30/23 17:34 Last Admin: 10/30/23 18:57 Dose: 3,000 units Documented By: NATACHA Sodium Chloride (Nss) 1,000 mls @ 125 mls/hr IV .Q8H FREEMAN Stop: 11/29/23 07:14 Last Infusion: 10/30/23 16:46 Dose: Infused Documented By: Admin: 10/30/23 14:21 Dose: 125 mls/hr Documented By: Infusion: 10/30/23 14:21 Dose: Infused Documented By: Admin: 10/30/23 08:19 Dose: 125 mls/hr Documented By: TI Heparin Sodium/Dextrose (Heparin Sodium/Dextrose) 25,000 units in 500 mls @ 14 mls/hr IV .Q24H FREEMAN; Protocol Stop: 11/29/23 12:29 Last Titration: 10/30/23 21:29 Dose: Infused Documented By: PANCHITO Co-signed By: NATASHA Titration: 10/30/23 16:38 Dose: 0 units/hr, 0 mls/hr Documented By: Co-signed By: JEFFERSON Admin: 10/30/23 13:18 Dose: 700 units/hr, 14 mls/hr Documented By: CHRISTINA Co-signed By: LEIGH Pantoprazole Sodium 40 mg/ (Syringe) 10 mls @ 5 mls/min IV NOW ONE Stop: 10/30/23 12:25 Last Admin: 10/30/23 13:25 Dose: 5 mls/min Documented By: CHRISTINA Magnesium Sulfate/Dextrose (Magnesium Sulfate / D5w) 1 gm in 100 mls @ 50 mls/hr IV ONE ONE Stop: 10/31/23 10:04 Last Admin: 10/31/23 08:59 Dose: 50 mls/hr Documented By: KORTNEY Ioversol (Optiray 320 125ml) 119 ml IV ONCE ONE Stop: 10/30/23 08:04 Last Admin: 10/30/23 07:59 Dose: 119 ml Documented By: ALEXA Ioversol (Optiray 350) Confirm Administered Dose 1 ml .ROUTE .STK-MED ONE Stop: 10/30/23 17:34 Last Admin: 10/30/23 19:16 Dose: 1 ml Documented By: ANNY Midazolam HCl (Midazolam Hcl 1 Mg/Ml 2ml Vial) Confirm Administered Dose 2 mg .ROUTE .STK-MED ONE Stop: 10/30/23 17:33 Last Admin: 10/30/23 18:56 Dose: 2 mg Documented By: NATACHA Midazolam HCl (Midazolam Hcl 1 Mg/Ml 2ml Vial) Confirm Administered Dose 2 mg .ROUTE .STK-MED ONE Stop: 10/30/23 18:25 Last Admin: 10/30/23 18:57 Dose: 2 mg Documented By: NATACHA Midazolam HCl (Midazolam Hcl 1 Mg/Ml 2ml Vial) Confirm Administered Dose 2 mg .ROUTE .STK-MED ONE Stop: 10/30/23 18:44 Last Admin: 10/30/23 19:03 Dose: 2 mg Documented By: TLF Nicardipine HCl (Nicardipine Hcl Inj 2.5 Mg/Ml 10 Ml Amp) Confirm Administered Dose 25 mg .ROUTE .STK-MED ONE Stop: 10/30/23 17:34 Last Admin: 10/30/23 18:57 Dose: 25 mg Documented By: TLF Nitroglycerin/Dextrose (Nitroglycerin/D5w 100mcg/Ml 20ml Syr) Confirm Administered Dose 2,000 mcg .ROUTE .STK-MED ONE Stop: 10/30/23 17:34 Last Admin: 10/30/23 18:57 Dose: 2,000 mcg Documented By: TLF Potassium Chloride (Potassium Chloride Crtab 20 Meq Tabcr) 20 meq PO NOW STA Stop: 10/31/23 08:06 Last Admin: 10/31/23 08:57 Dose: 20 meq Documented By: CAM Imaging Data Radiologist's Impression: Chest CTA 10/30/23 07:03 CT ANGIOGRAPHY OF THE CHEST DISSECTION PROTOCOL CLINICAL HISTORY: Chest pain extending into upper extremity. Evaluate for dissection. COMPARISON STUDY: Chest radiograph July 18, 2022. TECHNIQUE: Before and following the IV administration of 119 mL of Optiray, helical axial images of the chest were obtained. Maximal intensity projections and sagittal and coronal reformats were viewed on an independent 3D workstation. IV contrast was administered without complication. Automated exposure control was utilized for the study. A dose lowering technique was utilized adhering to the principles of ALARA. CT DOSE: 497.25 mGy.cm FINDINGS: The caliber of the thoracic aorta is normal. There is no intramural hematoma or thoracic aortic dissection. Size of the heart is normal. There are no pulmonary emboli. There is no thoracic lymphadenopathy. Central airways are patent. No pneumothorax or pleural effusion is present. An 8 mm perifissural left lower lobe nodule is unchanged since abdominal CT of July 01, 2019. This is benign. No additional pulmonary nodules are present. Mild thoracic spine dextroscoliosis is incidentally noted. Visualized portions of the upper abdomen are unremarkable. No acute fractures within the thorax are identified. IMPRESSION: 1. No thoracic aortic dissection. 2. No acute intrathoracic findings. ACT 112: Negative or not required by law. Electronically signed by: Nick Terry M.D. 10/30/2023 8:23 AM Discharge Plan Visit Data Chief Complaint: Chest Pain Stated Complaint: CHEST PAIN ED Provider: Kelly Eastman Discharge Problem: Chest pain Patient Disposition: Admitted As Inpatient Discharge Instructions Interventions: ED Discharge Assessment Last Done: 10/30/23 16:03
[2023-10-30 07:25] LABS: Basophils # (auto) 0.05 K/uL (0.00-0.20); Basophils % (auto) 0.6 %; Eosinophils # (auto) 0.16 K/uL (0.00-0.50); Eosinophils % (auto) 1.9 %; Hematocrit (blood only) 41.5 % (37.0-47.0); Hemoglobin 14.1 g/dl (12.0-16.0); Immature Granulocytes # (auto) 0.02 K/uL (0.01-0.20); Immature Granulocytes % (auto) 0.2 %; Lymphocytes # (auto) 2.88 K/uL (1.20-3.40); Lymphocytes % (auto) 35.1 %; Mean Corpuscular Hemoglobin 30.3 pg (25.0-34.0); Mean Corpuscular Volume 89.2 fL (80.0-100.0); Mean Platelet Volume 9.6 fL (9.4-12.4); Monocytes # (auto) 0.58 K/uL (0.11-0.59); Monocytes % (auto) 7.1 %; Neutrophils # (auto) 4.52 K/uL (1.40-6.50); Neutrophils % (auto) 55.1 %; Platelet Count 207 K/uL (130-400); RDW Coefficient of Variation 13.2 % (11.5-14.5); RDW Standard Deviation 43.2 fL (36.4-46.3); Red Blood Count 4.65 M/uL (4.20-5.40); White Blood Count 8.21 K/ul (4.8-10.8)
[2023-10-30 07:32] LABS: Albumin Globulin Ratio 2.1 (0.9-2); Albumin Level 4.6 gm/dl (3.4-5.0); BUN Creatinine Ratio 17.9 (10-20); Bilirubin,Total 0.4 mg/dl (0.2-1.0); Calcium 9.1 mg/dl (8.6-10.3); Creatinine Clr Calc Pharmacy 60.7 ml/min; Est GFR (African American) 88.6 ml/min; Est GFR (Non-African American) 76.5 ml/min; Globulin 2.2 gm/dl (2.5-4.0); Potassium 4.1 mmol/L (3.5-5.1); Total Protein 6.8 gm/dl (6.0-8.3)
[2023-10-30 07:36] LABS: Troponin I High Sensitivity 12.7 pg/ml (0-14)
[2023-10-30 07:46] LABS: Thyroid Stimulating Hormone 7.294 uIu/ml (0.300-4.500)
[2023-10-30] MEDS: OPTIRAY 320 125ml IV ONE (07:59)
[2023-10-30 08:14] LABS: Prothrombin Time 10.6 Seconds (9.0-12.0)
[2023-10-30] MEDS: SODIUM CHLORIDE 0.9% 1,000 ML IV SCH (08:19)
[2023-10-30 08:22] LABS: T4 Free Thyroxine 0.86 ng/dl (0.61-1.60)
--- NOTE | 2023-10-30 08:25 | CT Scan Report ---
CT ANGIOGRAPHY OF THE CHEST DISSECTION PROTOCOL CLINICAL HISTORY: Chest pain extending into upper extremity. Evaluate for dissection. COMPARISON STUDY: Chest radiograph July 18, 2022. TECHNIQUE: Before and following the IV administration of 119 mL of Optiray, helical axial images of t he chest were obtained. Maximal intensity projections and sagittal and coronal reformats were viewed on an independent 3D workstation. IV contrast was administered without complication. Automated exp osure control was utilized for the study. A dose lowering technique was utilized adhering to the geoff Spivey. CT DOSE: 497.25 mGy.cm FINDINGS: The caliber of the thoracic aorta is normal. There is no intramural hematoma or thoracic a ortic dissection. Size of the heart is normal. There are no pulmonary emboli. There is no thoracic ly mphadenopathy. Central airways are patent. No pneumothorax or pleural effusion is present. An 8 mm pe rifissural left lower lobe nodule is unchanged since abdominal CT of July 01, 2019. This is benig n. No additional pulmonary nodules are present. Mild thoracic spine dextroscoliosis is incidentally n oted. Visualized portions of the upper abdomen are unremarkable. No acute fractures within the thorax are identified. IMPRESSION: 1. No thoracic aortic dissection. 2. No acute intrathoracic findings. ACT 112: Negative or not required by law. Electronically signed by: Nick Terry M.D. 10/30/2023 8:23 AM
[2023-10-30] MEDS: ALUMINUM/MAGNESIUM SUSP 30 ML UDC PO STA (09:27)
--- NOTE | 2023-10-30 11:52 | Cardiology Consultation ---
Date of Consultation October 30, 2023 Assessment & Plan (1) Angina at rest: (2) Elevated troponin: (3) CAD (coronary artery disease): Plan ASSESSMENT/PLAN: 1. Unstable angina: Symptoms concerning for unstable angina, especially given elevated high-sensitivity troponin today. Recommended further ischemic evaluation and discussed options. Given elevated troponin and apparently some degree of LAD atherosclerosis according to records, recommend coronary angiography for definitive evaluation. Risks and benefits of this procedure were discussed with her in detail. She was agreeable to proceed. She was made aware that CT surgery is not available at this facility. Given that she has had even recurrent episode in the ER, recommend heparin drip if no contraindication. Recommend full dose aspirin. Avoiding beta-holly for now given asthma, but could consider if necessary. Currently chest pain-free. 2. CAD: Apparently diagnosed on CT imaging, possibly coronary CTA performed in [place] and according to some available records, involve the LAD. Daily aspirin 81 mg daily. Recommend high intensity statin therapy in place of 20 mg. Goal LDL < 70. Coronary angiography as noted above. 3. Elevated troponin: Presentation concerning for unstable angina. Plan as above. 4. Disposition: Plan of care communicated with Dr. Eastman of the emergency department. Will proceed with cardiac catheterization when the lab is available. N.p.o. until then. Highly complex medical issues. Thank you for allowing me to participate in the care of your patient. Please call for any other questions or concerns. Sincerely, Rufus Guzman M.D. History of Present Illness Reason for Consultation: chest pain and elevated trop Requesting Physician: Kelly Eastman Attending Physician: Kelly Eastman History of Present Illness Mrs. 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 She presented to the emergency department on 10/30/2023 for chest discomfort. She first developed chest discomfort on 10/21/2023 while in [place]. It occurred at 6:30 AM after having a bowel movement. It was a pressure across her chest, radiating into bilateral arms and accompanied by drenching diaphoresis. It was followed by nausea. Chest discomfort resolved within 5 to 10 minutes spontaneously. She had fatigue throughout the entire day but no further chest discomfort. The next morning, at 2:30 AM she was awakened by chest discomfort. The pain resolved within a few minutes and she took pediatric Pepto-Bismol. She had another episode at 4:30 AM and called 911. ECG was unremarkable per her report and she declined ER visit. Later, her daughter convinced her to go to the ER and she underwent CTA imaging, reportedly coronary artery CTA, ECG and was recommended to have stress test. She declined staying hospitalized to undergo the stress test. She has had a discomfort across her chest every day since then except for Thursday of this week. She had an episode of chest pressure yesterday while climbing stairs and had to sit down to allow the symptoms to pass. She had another severe episode that awakened her from sleep this morning at 5:30 AM, once again accompanied by drenching diaphoresis. This episode lasted approximately 5 minutes before spontaneously resolving. She also recalls having intermittent chest discomfort in the ER. Dr. Eastman requested a stress test. Her first high-sensitivity troponin was 12.7 but her second resulted at 33.9. She remains chest pain-free. She denies syncope, near syncope, palpitations, edema, melena, hematochezia, hematuria, prior intracranial hemorrhage, fever, vomiting. After her ER visit in [place], she was discharged with aspirin and atorvastatin. She takes montelukast for her asthma and has not needed recent as needed inhalers. She follows with pulmonology. Review of systems: As above. Review of systems otherwise negative/unremarkable. Family history: Mother had RI at the age of 35, aortic valve replacement at 70 and redo aortic valve replacement at 80. She has since . Social history: She denies tobacco or drug abuse. Occasional alcohol. Lives at home with her . Has 1 daughter who is a nurse practitioner at [employer] [facility] [employer] (Berenice Howell). She was unaccompanied during this consultation. Allergies Allergy/AdvReac Type Severity Reaction Status Date / Time No Known Allergies Allergy Verified 10/29/23 14:54 Home Medications Medication Instructions Recorded Confirmed Type acyclovir 5 % topical ointment 1 appln topical UD PRN herpes 05/25/19 10/30/23 History labialis #1 g cholecalciferol (vitamin D3) 125 4,000 units PO QAM 05/25/19 10/30/23 History mcg (5,000 unit) tablet cyanocobalamin (vitamin B-12) 100 2,000 mcg PO QAM 05/25/19 10/30/23 History mcg tablet fluticasone propionate 50 2 sprays intranasal UD PRN nasal 05/25/19 10/30/23 History mcg/actuation nasal congestion spray,suspension hydrocortisone acetate 25 mg 25 mg NV UD PRN hemorrhoids #60 ea 05/25/19 10/30/23 History rectal suppository sodium chloride 0.65 % nasal spray 1 sprays intranasal UD PRN dry 05/25/19 10/30/23 History aerosol nasal passages Lactobacillus acidophilus 10 10,000 mmu cells PO DAILY 12/05/20 10/30/23 History billion cell capsule (Probiotic) acetaminophen 500 mg tablet 1,000 mg PO UD PRN Pain 12/05/20 10/30/23 History (Tylenol Extra Strength) elderberry fruit 200 mg capsule 200 mg PO DAILY 12/05/20 10/30/23 History multivitamin 1 cap PO DAILY 12/05/20 10/30/23 History diclofenac sodium 1 % topical gel 4 g topical UD PRN Pain 01/17/22 10/30/23 History meclizine 25 mg chewable tablet 25 mg PO UD PRN Vertigo 01/17/22 10/30/23 History alprazolam 0.5 mg tablet 0.5 mg PO BID PRN tinnitus #15 tabs 03/31/22 10/30/23 Rx valacyclovir 1 gram tablet 1,000 mg PO DAILY PRN Cold Sores 04/28/22 10/30/23 Rx #30 tabs cyclobenzaprine 5 mg tablet 5 mg PO UD PRN Pain 06/13/22 10/30/23 History methocarbamol 500 mg tablet 500 mg PO UD PRN Pain 06/13/22 10/30/23 History clindamycin phosphate 1 % lotion 1 applic topical BID to axilla #60 10/06/22 10/30/23 Rx mL Mimvey 1 mg-0.5 mg tablet 1 tab PO QPM #84 tabs 01/30/23 10/30/23 Rx (estradiol-norethindrone acet) triamcinolone acetonide 0.5 % 1 applic topical DAILY #30 grams 03/16/23 10/30/23 Rx topical cream albuterol sulfate 90 mcg/actuation 2 puff inhalation Q6H PRN SHORT OF 05/25/23 10/30/23 Rx aerosol inhaler BREATH #8.5 grams montelukast 10 mg tablet 10 mg PO HS asthma #90 tabs 07/06/23 10/30/23 Rx lorazepam 0.5 mg tablet 0.5 - 1 mg (1 - 2 x 0.5 mg) PO HS 08/06/23 10/30/23 Rx PRN vertigo #60 tabs fluconazole 100 mg tablet 100 mg PO DAILY 7 days #7 tabs 08/18/23 10/30/23 Rx (Diflucan) nystatin 100,000 unit/gram topical 1 applic topical TID #15 grams 08/18/23 10/30/23 Rx ointment aspirin 81 mg tablet,delayed 81 mg PO DAILY 10/29/23 10/30/23 History release atorvastatin 20 mg tablet (Lipitor) 20 mg PO DAILY 10/29/23 10/30/23 History budesonide-formoterol HFA 80 2 puff inhalation BID PRN Other 10/29/23 10/30/23 History mcg-4.5 mcg/actuation aerosol inhaler (Symbicort) pantoprazole 40 mg tablet,delayed 40 mg .Route BID 10/29/23 10/30/23 History release Patient History Medical History Vertigo Lumbar radiculopathy Degenerative disc disease Hx of basal cell carcinoma Chronic back pain GERD (gastroesophageal reflux disease) Scoliosis Osteoarthritis Actinic keratosis HX Asthma SINGULAR CONTROLS AND PRN inhaler, uses < once month, only triggered by allergens Cerebral arterial aneurysm (Carotid-ophthalmic artery region), treated initially with a Pipeline flow diverter 08/2015, with re-do 02/2017 when aneurysm did not occlude ([facility]). Second opinion 09/2019, MRA showed persistent flow into the aneurysm, although smaller than previous. Last neurosurg visit 04/10/20 -- discussed retreatment with new flow diverter device vs continued observation; pt considering options, to f/u in 1 year. LAST NEURO VISIT - OCTOBER 2021 - ANNEURSYM GOT SMALLER FOR THE FIRST TIME IN 5 YR Mammogram abnormal Osteopenia Tinnitus of both ears Surgical History History of hysteroscopy S/P aneurysm repair Difficult airway for intubation History of esophagogastroduodenoscopy (EGD) (06/2019) Family history of reaction to anesthesia History of breast biopsy Lumbar spine tumor History of colonoscopy (06/2013) History of rhinoplasty History of tonsillectomy History of section Family History Father Colorectal cancer Mother Myocardial infarction Heart disease Cerebral aneurysm Grandmother (Maternal) Breast cancer Denies family history of Ovarian cancer Prostate cancer Social History Smoking Status: Never smoker Second Hand Exposure: No; Do You Dip or Chew Tobacco: No; Hx Alcohol Use: Yes Alcohol type: wine Alcohol Intake Frequency: 2-3 x/Week Hx Substance Use: No Preferred Language: Mohawk Communication Ability: Effective Visual Impairment: No Limitations Hearing Ability: Normal Building Insulation Supervisor Required: No Beliefs That Will Affect Care: None marital status: Current Living Situation: Spouse current occupational status: retired How many Children do You have: 1 Feels Safe at Home: Yes Childhood Exposure to Second-Hand Smoke: Yes Diet: regular caffeine: Yes during the past year weight has: increased > 10 lbs Dental Care, Regularly: Yes Physical Activity Frequency: Daily Seatbelt Use: always Sunscreen Use: Yes Assistive Devices: Glasses Physical Exam Physical Exam: Gen.: No acute distress. Alert and oriented. HEENT: Anicteric sclera. Neck: No JVD. No bruits. Normal carotid upstrokes bilaterally. Cardiac: No ventricular heave. Regular. Normal S1-S2. No murmurs, rubs, or gallops. Pulmonary: Clear to auscultation bilaterally without wheezes, rales, or rhonchi. Abdomen: Soft, nontender, nondistended, with normoactive bowel sounds. No bruits noted. Extremities: 2+ radial pulses bilaterally. 2+ posterior tibialis pulses bilaterally. No edema or cyanosis. Psychiatric: Affect appears appropriate. Chest: Nontender. Results & Data Vital Signs (Past 12 Hours) Vital Signs Temp Pulse Pulse Resp BP BP Pulse Ox 10/30/23 08:18 67 20 113/63 98 10/30/23 07:27 66 18 136/79 95 10/30/23 06:26 79 10/30/23 06:13 37.0 C 77 18 151/82 H 99 O2 Del Method 10/30/23 08:18 Room Air 10/30/23 07:27 Room Air 10/30/23 06:26 10/30/23 06:13 Room Air Laboratory Results Laboratory Results - last 24 hr 10/30/23 10/30/23 06:29 09:40 WBC 8.21 RBC 4.65 Hgb 14.1 Hct 41.5 MCV 89.2 MCH 30.3 MCHC 34.0 RDW Std Deviation 43.2 RDW Coeff of Sheela 13.2 Plt Count 207 MPV 9.6 Immature Gran % (Auto) 0.2 Neut % (Auto) 55.1 Lymph % (Auto) 35.1 George % (Auto) 7.1 Eos % (Auto) 1.9 Baso % (Auto) 0.6 Neut # (Auto) 4.52 Lymph # (Auto) 2.88 George # (Auto) 0.58 Eos # (Auto) 0.16 Baso # (Auto) 0.05 Immature Gran # (Auto) 0.02 PT 10.6 INR 1.0 Sodium 138 Potassium 4.1 Chloride 106 Carbon Dioxide 25 Anion Gap 7 BUN 14 Creatinine 0.78 Est Cr Clr Drug Dosing 60.7 Est GFR ( Amer) 88.6 Est GFR (Non-Af Amer) 76.5 BUN/Creatinine Ratio 17.9 Glucose 100 H Calcium 9.1 Magnesium 2.0 Total Bilirubin 0.4 AST 19 ALT 17 Alkaline Phosphatase 45 Troponin I High Sens 12.7 33.9 H D Total Protein 6.8 Albumin 4.6 Globulin 2.2 L Albumin/Globulin Ratio 2.1 H Lipase 16 TSH 7.294 H Free T4 0.86 Diagnostic Findings Echo 10/30/2023 preliminary review: Normal LV systolic function and normal wall motion. ECG personally reviewed 10/30/2023: NSR 71 bpm. CTA chest 10/30/2023: No thoracic aortic dissection. No PE. Labs reviewed and notable for normal blood counts, normal renal function, normal potassium, normal transaminase levels, elevated high-sensitivity troponin, mildly abnormal TSH. Medications Administered Current Inpatient Medications Heparin Sodium (Porcine) (Heparin Sod (Porcine) 1000 Unit/Ml) 1 units IV NOW ONE Stop: 10/30/23 12:24 Sodium Chloride (Nss) 1,000 mls @ 125 mls/hr IV .Q8H [facility] Stop: 11/29/23 07:14 Last Admin: 10/30/23 08:19 Dose: 125 mls/hr Heparin Sodium/Dextrose (Heparin Sodium/Dextrose) 25,000 units in 500 mls @ 0.02 mls/hr IV .Q24H [facility]; Protocol Stop: 11/29/23 12:29 PG Care Time/CCT Total # of Minutes Spent Total Time Spent with Patient: Total time spent is greater than 50% in coordination of care (as documented) at patient's floor/unit and/or counseling patient: Coding Level of Care Code 02414 ER DEPT VISIT HIGH LVL 5 Diagnoses Angina at rest I20.89 Elevated troponin R79.89 CAD (coronary artery disease) I25.10
[2023-10-30 12:59] LABS: Partial Thromboplastin Ratio 0.9; Partial Thromboplastin Time 26 Seconds (21-31)
[2023-10-30] MEDS: HEPARIN SOD (PORCINE) 1000 UNIT/ML ONE (13:17)
[2023-10-30] MEDS: HEPARIN SODIUM/DEXTROSE 25,000 UNITS/500 ML BAG IV SCH (13:18)
[2023-10-30] MEDS: Heparin IV Adult Wt-Based Low-Dose w/ INITIAL Bolus Protocol IV STA (13:18)
[2023-10-30] MEDS: PANTOprazole 40 MG in SYRINGE 0 ML IV ONE (13:25)
--- NOTE | 2023-10-30 13:33 | History & Physical Report ---
Date of Service October 30, 2023 Assessment & Plan (1) Intermittent chest pain: Plan: Severe, intermittent episodes of chest pain that wake her from sleep since Friday 10/20 No hx of MIs or prior experiences such as swelling Chest CTA revealed no thoracic aortic dissection or pulmonary emboli Troponin 12.7-->33.9 on arrival Trend troponin q6h x 2 Elevated TSH at 7.294 Stress echocardiogram on 10/30/2023 revealed LVEF at 60-65% Cardiology consulted Plan is for cardiac catheterization with Dr. Guzman on 10/29 Continuous telemetry monitoring Aspirin 81 mg daily Will increase to high intensity statin (atorvastatin 20 mg --> 80 mg daily) Will defer beta-holly treatment at this time due to patient's underlying asthma Continue heparin drip A.m. CBC, BMP, troponin, mag (2) GERD (gastroesophageal reflux disease): Plan: Continue pantoprazole BID (3) Vaginal bleeding: Plan: Vaginal bleeding x 1 episode while in the ED Gynecology appointment on 10/[address] Estrada; silver nitrate applied for vulvar dermatitis [employer] consulted H&H spotcheck ordered, pending Plan Disposition: Obs - Admit to PCU Tele Full code AHA diet VTE PPx: Heparin Drip held following vaginal bleed History of Present Illness Chief Complaint: Chest pain Primary Care Provider: Crystal Willett MD Marianne is a 73-year-old female with PMH of migraines, GERD, anxiety, asthma, TMJ, sleep disturbances, and tinnitus. She presented for intermittent chest pain that first started upon waking on Friday 10/20 while she was in [place]. Patient reports that the severe chest pain woke her from sleep around 0630, and she was having cold sweats, nausea, and severe chest pain that radiated down both arms. That episode lasted for approximately 5 to 15 minutes, and resulted in her feeling fatigued throughout the rest of the day; she reports she was unable to get off the couch. No prior experiences of chest pain like that one. The pain returned the following day on around 2 AM, then again at 4:30 AM, and she called 911; EKG was normal at that time. Following her ED visit in [place], she reports she has been having chest discomfort transverse across her upper chest x 1 week, and that she has been feeling tired. Recurrence of severe chest pain upon waking at 5 AM on 10/29 and she came to the ED. She notes that the chest pain is unpredictable; for instance she had chest discomfort when walking up steps (and had to sit), but other times it is at rest. She also noticed that it came on with urination at one point, but did not come on during her bowel movement. She reports she is not taking any additional medications for her pain. She was recently started on Lipitor and aspirin 81 mg daily starting last 10/21, which she reports has been taking. Besides this, she reports she only takes Singulair, pantoprazole, and Mimvey. No prior medical history of heart attacks, CVA, or PE/DVT. History of a brain aneurysm in 2014, which resolved. Family history of cardiac disease, with her mother having an IA in her 30s. Patient denies smoking, tobacco use, or recent alcohol use. Vital stable at time of admission. She denies chest pain at time of admission. ED course: Heparin IV with bolus Pantoprazole 40 mg IV NSS 1000 mL IV ROS: Patient endorses chills/night-sweats upon waking with severe CP, YUSUF x 1 episode going up steps, intermittent severe CP with radiation down both arms, OLSON (which patient attributes to atorvastatin), and nausea. Patient denies fever, chest palpitations, SOB at rest, cough, abdominal pain, vomiting, or diarrhea. Allergies Allergy/AdvReac Type Severity Reaction Status Date / Time No Known Allergies Allergy Verified 10/29/23 14:54 Home Medications Medication Instructions Recorded Confirmed Type acyclovir 5 % topical ointment 1 appln topical UD PRN herpes 05/25/19 10/30/23 History labialis #1 g cholecalciferol (vitamin D3) 125 4,000 units PO QAM 05/25/19 10/30/23 History mcg (5,000 unit) tablet cyanocobalamin (vitamin B-12) 100 2,000 mcg PO QAM 05/25/19 10/30/23 History mcg tablet fluticasone propionate 50 2 sprays intranasal UD PRN nasal 05/25/19 10/30/23 History mcg/actuation nasal congestion spray,suspension hydrocortisone acetate 25 mg 25 mg LA UD PRN hemorrhoids #60 ea 05/25/19 10/30/23 History rectal suppository sodium chloride 0.65 % nasal spray 1 sprays intranasal UD PRN dry 05/25/19 10/30/23 History aerosol nasal passages Lactobacillus acidophilus 10 10,000 mmu cells PO DAILY 12/05/20 10/30/23 History billion cell capsule (Probiotic) acetaminophen 500 mg tablet 1,000 mg PO UD PRN Pain 12/05/20 10/30/23 History (Tylenol Extra Strength) elderberry fruit 200 mg capsule 200 mg PO DAILY 12/05/20 10/30/23 History multivitamin 1 cap PO DAILY 12/05/20 10/30/23 History diclofenac sodium 1 % topical gel 4 g topical UD PRN Pain 01/17/22 10/30/23 History meclizine 25 mg chewable tablet 25 mg PO UD PRN Vertigo 01/17/22 10/30/23 History alprazolam 0.5 mg tablet 0.5 mg PO BID PRN tinnitus #15 tabs 03/31/22 10/30/23 Rx valacyclovir 1 gram tablet 1,000 mg PO DAILY PRN Cold Sores 04/28/22 10/30/23 Rx #30 tabs cyclobenzaprine 5 mg tablet 5 mg PO UD PRN Pain 06/13/22 10/30/23 History methocarbamol 500 mg tablet 500 mg PO UD PRN Pain 06/13/22 10/30/23 History clindamycin phosphate 1 % lotion 1 applic topical BID to axilla #60 10/06/22 10/30/23 Rx mL Mimvey 1 mg-0.5 mg tablet 1 tab PO QPM #84 tabs 01/30/23 10/30/23 Rx (estradiol-norethindrone acet) triamcinolone acetonide 0.5 % 1 applic topical DAILY #30 grams 03/16/23 10/30/23 Rx topical cream albuterol sulfate 90 mcg/actuation 2 puff inhalation Q6H PRN SHORT OF 05/25/23 10/30/23 Rx aerosol inhaler BREATH #8.5 grams lorazepam 0.5 mg tablet 0.5 - 1 mg (1 - 2 x 0.5 mg) PO HS 08/06/23 10/30/23 Rx PRN vertigo #60 tabs fluconazole 100 mg tablet 100 mg PO DAILY 7 days #7 tabs 08/18/23 10/30/23 Rx (Diflucan) nystatin 100,000 unit/gram topical 1 applic topical TID #15 grams 08/18/23 10/30/23 Rx ointment aspirin 81 mg tablet,delayed 81 mg PO DAILY 10/29/23 10/30/23 History release atorvastatin 20 mg tablet (Lipitor) 20 mg PO DAILY 10/29/23 10/30/23 History budesonide-formoterol HFA 80 2 puff inhalation BID PRN Other 10/29/23 10/30/23 History mcg-4.5 mcg/actuation aerosol inhaler (Symbicort) pantoprazole 40 mg tablet,delayed 40 mg .Route BID 10/29/23 10/30/23 History release montelukast 10 mg tablet 10 mg PO HS asthma #90 tabs 10/30/23 Rx Past Med/Surg History Medical History Vertigo Lumbar radiculopathy Degenerative disc disease Hx of basal cell carcinoma Chronic back pain GERD (gastroesophageal reflux disease) Scoliosis Osteoarthritis Actinic keratosis HX Asthma SINGULAR CONTROLS AND PRN inhaler, uses < once month, only triggered by allergens Cerebral arterial aneurysm (Carotid-ophthalmic artery region), treated initially with a Pipeline flow diverter 08/2015, with re-do 02/2017 when aneurysm did not occlude ([facility]). Second opinion 09/2019, MRA showed persistent flow into the aneurysm, although smaller than previous. Last neurosurg visit 04/10/20 -- discussed retreatment with new flow diverter device vs continued observation; pt considering options, to f/u in 1 year. LAST NEURO VISIT - OCTOBER 2021 - ANNEURSYM GOT SMALLER FOR THE FIRST TIME IN 5 YR Mammogram abnormal Osteopenia Tinnitus of both ears Surgical History History of hysteroscopy S/P aneurysm repair brain aneurysm repair x 2 in 2014 & 2016; reports still an aneurysm present and [place] [facility]; last check 03/2020. LAST CHECK OCTOBER 2021 MRA'S EVERY 6 MON TO EVERY YR - MOST RECENT MRA OCTOBER 2021 Difficult airway for intubation small airway per pt History of esophagogastroduodenoscopy (EGD) (06/2019) Family history of reaction to anesthesia MOTHER-CONFUSION/DELERIUM POST OP AFTER OPEN HEART SURGERY/VALVE REPLACEMENTS History of breast biopsy BENIGN Lumbar spine tumor REMOVED "BENIGN" History of colonoscopy (06/2013) History of rhinoplasty History of tonsillectomy History of section 1985 Family History Father Colorectal cancer Mother Myocardial infarction Heart disease Cerebral aneurysm Grandmother (Maternal) Breast cancer Denies family history of Ovarian cancer Prostate cancer Social History Smoking Status: Never smoker Second Hand Exposure: No; Hx Alcohol Use: Yes Alcohol type: wine and hard liquor Alcohol Intake Frequency: 2-3 x/Week Hx Substance Use: No Preferred Language: Tanzanian Communication Ability: Effective Visual Impairment: No Limitations Hearing Ability: Normal Blood Bank Laboratory Technician Required: No Beliefs That Will Affect Care: Muslim Muslim Beliefs: Hindu marital status: Current Living Situation: Spouse current occupational status: retired How many Children do You have: 1 Feels Safe at Home: Yes Childhood Exposure to Second-Hand Smoke: Yes Diet: regular caffeine: Yes during the past year weight has: increased > 10 lbs Dental Care, Regularly: Yes Physical Activity Frequency: Daily Seatbelt Use: always Sunscreen Use: Yes Assistive Devices: Glasses Review of Systems Review of Systems: See HPI above Physical Exam Physical Exam: General: no acute distress; pleasant affect; non-toxic appearing; cooperative HEENT: normocephalic, atraumatic; no scleral icterus; PERRLA; vision and hearing grossly intact Neck: supple; no JVD; no lymphadenopathy; trachea midline Skin: warm, dry without signs of tenting; no cyanosis; no rashes, bruising, lesions, or erythema noted CV: chest wall NTP; RRR; S1/S2 normal; no murmurs/rubs/gallops; pulses intact and symmetric at radial, DP, and PT Lungs: no acute respiratory distress; symmetrical chest wall expansion; clear breath sounds across all lung chow w/o adventitious sounds; no wheezing ABD: Soft, NTP; BS present; no rebound/guarding; no ascites; no distention; negative CVA tenderness MSK: no tics or fasciculations; no edema noted in the LEs b/l, nonerythematous Neuro: A&Ox3; normal mood and affect; fluent speech; no focal deficits; sensation grossly intact in the LEs b/l Results & Data Results & Data Vital Signs (Past 12 Hours) Vital Signs Temp Pulse Pulse Resp BP BP Pulse Ox 10/30/23 12:35 68 17 121/68 96 10/30/23 08:18 67 20 113/63 98 10/30/23 07:27 66 18 136/79 95 10/30/23 06:26 79 10/30/23 06:13 37.0 C 77 18 151/82 H 99 O2 Del Method 10/30/23 12:35 Room Air 10/30/23 08:18 Room Air 10/30/23 07:27 Room Air 10/30/23 06:26 10/30/23 06:13 Room Air Laboratory Results Abnormal lab results 10/30/23 10/30/23 Range/Units 06:29 09:40 Glucose 100 H (70-99(Fasting)) mg/dl Troponin I High Sens 33.9 H D (0-14) pg/ml Globulin 2.2 L (2.5-4.0) gm/dl Albumin/Globulin Ratio 2.1 H (0.9-2) TSH 7.294 H (0.300-4.500) uIu/ml Diagnostic Findings Chest CTA 10/30/23 07:03 CT ANGIOGRAPHY OF THE CHEST DISSECTION PROTOCOL CLINICAL HISTORY: Chest pain extending into upper extremity. Evaluate for dissection. COMPARISON STUDY: Chest radiograph July 18, 2022. TECHNIQUE: Before and following the IV administration of 119 mL of Optiray, helical axial images of the chest were obtained. Maximal intensity projections and sagittal and coronal reformats were viewed on an independent 3D workstation. IV contrast was administered without complication. Automated exposure control was utilized for the study. A dose lowering technique was utilized adhering to the principles of ALARA. CT DOSE: 497.25 mGy.cm FINDINGS: The caliber of the thoracic aorta is normal. There is no intramural hematoma or thoracic aortic dissection. Size of the heart is normal. There are no pulmonary emboli. There is no thoracic lymphadenopathy. Central airways are patent. No pneumothorax or pleural effusion is present. An 8 mm perifissural left lower lobe nodule is unchanged since abdominal CT of July 01, 2019. This is benign. No additional pulmonary nodules are present. Mild thoracic spine dextroscoliosis is incidentally noted. Visualized portions of the upper abdomen are unremarkable. No acute fractures within the thorax are identified. IMPRESSION: 1. No thoracic aortic dissection. 2. No acute intrathoracic findings. ACT 112: Negative or not required by law. Electronically signed by: Nick Terry M.D. 10/30/2023 8:23 AM Code Status & VTE Plan Code Status Full code VTE Prophylaxis Plan VTE Prophylaxis will be ordered: Yes Supervising Physician Co-Signing Physician Notes Patient seen and examined, chart reviewed, case discussed with Ceferino Do and I agree with the assessment and plan as above except as otherwise noted Labs and images reviewed Marianne Boothe is a 73-year-old female with a past medical history of GERD, lumbar radiculopathy, vertigo who presented to the ER with chest pain for 1 week with an initial episode started while at rest in the night and which was associated with nausea, sweating, and radiation into both arms. This did occur on the toilet. Was seen in the ER while in [place], patient had a coronary CTA which showed mild CAD and she was started on aspirin/Lipitor/Protonix. She is returned to [facility] as she is only [place] seasonally, has continued to have chest pain over the last week with a initial EKG in the ER normal sinus without acute ischemic changes. He was recommended for a stress test, initial troponin 12.7/normal, repeat troponin 33.9 while in the ER. CTA of the chest does not show any evidence of dissection, no PE, no acute findings. Patient was recommended or cardiac cath due to rise in her troponin, concerning story, and history of LAD abnormality on imaging while in [place]. Patient was subsequently found to have a 70-80% LAD occlusion, 1 DAVINA was subsequently placed to the LAD and patient was transferred in stable condition to PCU. Patient continued on aspirin, Plavix for DAPT. statin dose increased, lipid panel pending in the morning. On ICU reassessment pain free, R wrist neurovascularly intact, feels well. PG Care Time/CCT Total # of Minutes Spent Total Time Spent with Patient: Total time spent is greater than 50% in coordination of care (as documented) at patient's floor/unit and/or counseling patient: C[place] [address] INT INP/OBS CARE 2/55MIN Patient Type Established Medical Decision Making Moderate Complexity Diagnoses Intermittent chest pain R07.9 GERD (gastroesophageal reflux disease) K21.9 Vaginal bleeding N93.9
[2023-10-30] MEDS: HEPARIN SOD (PORCINE) 1000 UNIT/ML IV ONE (13:42)
--- NOTE | 2023-10-30 14:08 | XCELERA ---
[id number]
[2023-10-30] MEDS ORDERED: ACETAMINOPHEN 325 MG TAB PO PRN (16:42)
[2023-10-30] MEDS ORDERED: ALBUTEROL HFA 8 GM INHALER INH PRN (16:42)
--- NOTE | 2023-10-30 17:54 | Pre Anesthesia Assessment ---
Date of Service October 30, 2023 Pre Sedation Assessment Vital Signs Temp Pulse Pulse Resp BP BP Pulse Ox 10/30/23 16:37 36.7 C 70 16 149/70 H 96 10/30/23 15:30 69 22 10/30/23 15:00 68 18 96 10/30/23 14:55 71 20 96 10/30/23 14:55 113/85 10/30/23 14:30 70 17 98 10/30/23 14:00 63 14 98 10/30/23 13:30 65 20 97 10/30/23 13:29 71 16 97 10/30/23 13:29 133/96 10/30/23 13:11 69 21 97 10/30/23 13:11 99/78 L 10/30/23 13:05 74 17 94 10/30/23 12:35 121/68 10/30/23 12:35 68 17 95 10/30/23 12:35 68 17 121/68 96 10/30/23 12:33 73 30 H 10/30/23 12:00 67 18 98 10/30/23 12:00 111/60 10/30/23 11:52 82 13 10/30/23 09:30 72 20 96 10/30/23 09:20 141/107 H 10/30/23 09:20 99 10/30/23 09:00 123/70 10/30/23 09:00 63 16 98 10/30/23 08:30 62 16 97 10/30/23 08:18 67 20 113/63 98 10/30/23 08:05 66 16 96 10/30/23 08:05 113/63 10/30/23 07:30 63 13 95 10/30/23 07:27 66 18 136/79 95 10/30/23 07:00 66 16 96 10/30/23 07:00 136/79 10/30/23 06:30 72 20 98 10/30/23 06:26 83 25 H 99 10/30/23 06:26 143/86 H 10/30/23 06:26 79 10/30/23 06:13 37.0 C 77 18 151/82 H 99 O2 Del Method 10/30/23 16:37 Room Air 10/30/23 15:30 10/30/23 15:00 10/30/23 14:55 10/30/23 14:55 10/30/23 14:30 10/30/23 14:00 10/30/23 13:30 10/30/23 13:29 10/30/23 13:29 10/30/23 13:11 10/30/23 13:11 10/30/23 13:05 10/30/23 12:35 10/30/23 12:35 10/30/23 12:35 Room Air 10/30/23 12:33 10/30/23 12:00 10/30/23 12:00 10/30/23 11:52 10/30/23 09:30 10/30/23 09:20 10/30/23 09:20 10/30/23 09:00 10/30/23 09:00 10/30/23 08:30 10/30/23 08:18 Room Air 10/30/23 08:05 10/30/23 08:05 10/30/23 07:30 10/30/23 07:27 Room Air 10/30/23 07:00 10/30/23 07:00 10/30/23 06:30 10/30/23 06:26 10/30/23 06:26 10/30/23 06:26 10/30/23 06:13 Room Air Cardiovascular RRR, no murmur, no edema Respiratory normal respiratory effort, lungs clear to auscultation Pre-Sedation Airway Assessment Smoking Status: Never smoker Mallampati Class: III ASA: ASA3 NPO Status Date of Last Intake of Fluids: 10/29/23 Time of Last Intake of Fluids: 21:00 Date of Last Intake of Solid Food: 10/29/23 Time of Last Intake of Solid Foods: 21:00 Procedure Planning Contraindications for Sedation: none Current Medications Reviewed: Yes Notes The planned sedation has been discussed with the patient. Informed Consent was obtained. I have identified the patient, determined the appropriateness of sedation and have assessed the patient immediately prior to the procedure. All medicine(s) and interventions are by my order.
--- NOTE | 2023-10-30 18:05 | OB/GYN Consultation ---
Date of Consultation October 30, 2023 Assessment & Plan (1) Vaginal bleeding: Plan Vulvovaginitis and/or cervical ectropion, seen just yesterday on full pelvic exam and treated topically. By report, bleeding may have worsened with administration of heparin earlier today as indicated for cardiac concerns, with workup for her cardiac issue currently ongoing. As discussed with Dr. Corona, at this time I would not want her heparin to be withheld for concern re: vaginal bleeding if it is indicated for cardiac protection. Vaginal bleeding may occur during therapeutic anticoagulation, but unless it is soaking a maxi pad in 30min or resulting in significant drop in Hgb, it is not more important to avoid bleeding than it is to appropriately manage the cardiac issue for which she is admitted. Regarding the nature of her vulvovaginitis and/or cervical lesion, appropriate outpatient follow up was planned and can continue as she is able. Thank you for the opportunity to check in on our established patient and to assist with her care. I will cc her usual physician for their information, and will be available if you have further questions for PHYSICIAN SPECIALIST. History of Present Illness Reason for Consultation: Vaginal bleeding Requesting Physician: MD Chloe History of Present Illness Marianne is a 73yo who is a well-established PHYSICIAN SPECIALIST patient of Dr. Estrada. The patient has been having some vulvovaginitis the last few months and has been managed with various treatments including estrogen and mild topical steroid, with relief that has been incomplete but also compliance that has been hit-or-miss, based on chart review. She was most recently seen for this issue in the office setting just yesterday. Raw areas of the vulva were noted, and a cervical lesion noted to be an ectropion was cauterized with silver nitrate. Of note the patient is menopausal but using Mimvey HRT. Concurrent with the above events, the patient has had recent travel to [place]. She was there last week when she was seen at the ER for chest pain, at which time I am told EKG was normal. She continued to have intermittent chest pain, now for a total of 7 to 8 days, and presented to our ER. She is currently admitted to our ICU, having just been transferred from the ER to room 111. When I arrived at her room, she was using the toilet, and the cardiac cath team was waiting to take her to the cath suite. I therefore had limited time with Marianne to avoid delaying time-critical care, however did get to meet with her briefly in person. She notes that during her ER care she began to experience more vaginal bleeding than she had at the time of her office visit yesterday. However, the heparin IV bolus and drip that was administered in the ER has been stopped, and the bleeding has now slowed significantly. She has no other PHYSICIAN SPECIALIST complaints presently. Allergies Allergy/AdvReac Type Severity Reaction Status Date / Time No Known Allergies Allergy Verified 10/29/23 14:54 Home Medications Medication Instructions Recorded Confirmed Type acyclovir 5 % topical ointment 1 appln topical UD PRN herpes 05/25/19 10/30/23 History labialis #1 g cholecalciferol (vitamin D3) 125 4,000 units PO QAM 05/25/19 10/30/23 History mcg (5,000 unit) tablet cyanocobalamin (vitamin B-12) 100 2,000 mcg PO QAM 05/25/19 10/30/23 History mcg tablet fluticasone propionate 50 2 sprays intranasal UD PRN nasal 05/25/19 10/30/23 History mcg/actuation nasal congestion spray,suspension hydrocortisone acetate 25 mg 25 mg AZ UD PRN hemorrhoids #60 ea 05/25/19 10/30/23 History rectal suppository sodium chloride 0.65 % nasal spray 1 sprays intranasal UD PRN dry 05/25/19 10/30/23 History aerosol nasal passages Lactobacillus acidophilus 10 10,000 mmu cells PO DAILY 12/05/20 10/30/23 History billion cell capsule (Probiotic) acetaminophen 500 mg tablet 1,000 mg PO UD PRN Pain 12/05/20 10/30/23 History (Tylenol Extra Strength) elderberry fruit 200 mg capsule 200 mg PO DAILY 12/05/20 10/30/23 History multivitamin 1 cap PO DAILY 12/05/20 10/30/23 History diclofenac sodium 1 % topical gel 4 g topical UD PRN Pain 01/17/22 10/30/23 History meclizine 25 mg chewable tablet 25 mg PO UD PRN Vertigo 01/17/22 10/30/23 History alprazolam 0.5 mg tablet 0.5 mg PO BID PRN tinnitus #15 tabs 03/31/22 10/30/23 Rx valacyclovir 1 gram tablet 1,000 mg PO DAILY PRN Cold Sores 04/28/22 10/30/23 Rx #30 tabs cyclobenzaprine 5 mg tablet 5 mg PO UD PRN Pain 06/13/22 10/30/23 History methocarbamol 500 mg tablet 500 mg PO UD PRN Pain 06/13/22 10/30/23 History clindamycin phosphate 1 % lotion 1 applic topical BID to axilla #60 10/06/22 10/30/23 Rx mL Mimvey 1 mg-0.5 mg tablet 1 tab PO QPM #84 tabs 01/30/23 10/30/23 Rx (estradiol-norethindrone acet) triamcinolone acetonide 0.5 % 1 applic topical DAILY #30 grams 03/16/23 10/30/23 Rx topical cream albuterol sulfate 90 mcg/actuation 2 puff inhalation Q6H PRN SHORT OF 05/25/23 10/30/23 Rx aerosol inhaler BREATH #8.5 grams lorazepam 0.5 mg tablet 0.5 - 1 mg (1 - 2 x 0.5 mg) PO HS 08/06/23 10/30/23 Rx PRN vertigo #60 tabs fluconazole 100 mg tablet 100 mg PO DAILY 7 days #7 tabs 08/18/23 10/30/23 Rx (Diflucan) nystatin 100,000 unit/gram topical 1 applic topical TID #15 grams 08/18/23 10/30/23 Rx ointment aspirin 81 mg tablet,delayed 81 mg PO DAILY 10/29/23 10/30/23 History release atorvastatin 20 mg tablet (Lipitor) 20 mg PO DAILY 10/29/23 10/30/23 History budesonide-formoterol HFA 80 2 puff inhalation BID PRN Other 10/29/23 10/30/23 History mcg-4.5 mcg/actuation aerosol inhaler (Symbicort) pantoprazole 40 mg tablet,delayed 40 mg .Route BID 10/29/23 10/30/23 History release montelukast 10 mg tablet 10 mg PO HS asthma #90 tabs 10/30/23 Rx Patient History Medical History Vertigo Lumbar radiculopathy Degenerative disc disease Hx of basal cell carcinoma Chronic back pain GERD (gastroesophageal reflux disease) Scoliosis Osteoarthritis Actinic keratosis HX Asthma SINGULAR CONTROLS AND PRN inhaler, uses < once month, only triggered by allergens Cerebral arterial aneurysm (Carotid-ophthalmic artery region), treated initially with a Pipeline flow diverter 08/2015, with re-do 02/2017 when aneurysm did not occlude ([facility]). Second opinion 09/2019, MRA showed persistent flow into the aneurysm, although smaller than previous. Last neurosurg visit 04/10/20 -- discussed retreatment with new flow diverter device vs continued observation; pt considering options, to f/u in 1 year. LAST NEURO VISIT - OCTOBER 2021 - ANNEURSYM GOT SMALLER FOR THE FIRST TIME IN 5 YR Mammogram abnormal Osteopenia Tinnitus of both ears Surgical History History of hysteroscopy S/P aneurysm repair brain aneurysm repair x 2 in 2014 & 2016; reports still an aneurysm present [place] [facility] [place]; last check 03/2020. LAST CHECK OCTOBER 2021 MRA'S EVERY 6 MON TO EVERY YR - MOST RECENT MRA OCTOBER 2021 Difficult airway for intubation small airway per pt History of esophagogastroduodenoscopy (EGD) (06/2019) Family history of reaction to anesthesia MOTHER-CONFUSION/DELERIUM POST OP AFTER OPEN HEART SURGERY/VALVE REPLACEMENTS History of breast biopsy BENIGN Lumbar spine tumor REMOVED "BENIGN" History of colonoscopy (06/2013) History of rhinoplasty History of tonsillectomy History of section 1985 Family History Father Colorectal cancer Mother Myocardial infarction Heart disease Cerebral aneurysm Grandmother (Maternal) Breast cancer Denies family history of Ovarian cancer Prostate cancer Social History Smoking Status: Never smoker Second Hand Exposure: No; Hx Alcohol Use: Yes Alcohol type: wine and hard liquor Alcohol Intake Frequency: 2-3 x/Week Hx Substance Use: No Preferred Language: Cape Verdean Communication Ability: Effective Visual Impairment: No Limitations Hearing Ability: Normal Validation Engineer Required: No Beliefs That Will Affect Care: Protestant Protestant Beliefs: Holiness marital status: Current Living Situation: Spouse current occupational status: retired How many Children do You have: 1 Feels Safe at Home: Yes Safety Concerns: Feels Safe At This Time Childhood Exposure to Second-Hand Smoke: Yes Diet: regular caffeine: Yes during the past year weight has: increased > 10 lbs Dental Care, Regularly: Yes Physical Activity Frequency: Daily Seatbelt Use: always Sunscreen Use: Yes Assistive Devices: Glasses Physical Exam Physical Exam: Ambulating, normal habitus, female appearing stated age or younger, in NAD. Pleasant/chatty affect, especially considering the acute events currently surrounding her admission. Unfortunately, toilet was flushed prior to my having an opportunity to see the amount of bleeding, and she is not wearing a pad or sitting on a chux due to her recent arrival in the room and planned immediate transfer to cath. I am therefore unable to quantify her bleeding and am relying on patient report. Never heavier than a menses, and now much chief operator than it was in the ER, her bleeding is evidently not at or above a threshold I would expect to threaten her well-being. Exam beyond the above was forgone so as not to delay her transport to the cardiac supervisor labor gang. Today's Hgb of 14.1 is noted. Results & Data Vital Signs (Past 12 Hours) Vital Signs Temp Pulse Pulse Resp BP BP Pulse Ox 10/30/23 16:37 98.1 F 70 16 149/70 H 96 10/30/23 15:30 69 22 10/30/23 15:00 68 18 96 10/30/23 14:55 71 20 96 10/30/23 14:55 113/85 10/30/23 14:30 70 17 98 10/30/23 14:00 63 14 98 10/30/23 13:30 65 20 97 10/30/23 13:29 71 16 97 10/30/23 13:29 133/96 10/30/23 13:11 69 21 97 10/30/23 13:11 99/78 L 10/30/23 13:05 74 17 94 10/30/23 12:35 121/68 10/30/23 12:35 68 17 95 10/30/23 12:35 68 17 121/68 96 10/30/23 12:33 73 30 H 10/30/23 12:00 67 18 98 10/30/23 12:00 111/60 10/30/23 11:52 82 13 10/30/23 09:30 72 20 96 10/30/23 09:20 141/107 H 10/30/23 09:20 99 10/30/23 09:00 123/70 10/30/23 09:00 63 16 98 10/30/23 08:30 62 16 97 10/30/23 08:18 67 20 113/63 98 10/30/23 08:05 66 16 96 10/30/23 08:05 113/63 10/30/23 07:30 63 13 95 10/30/23 07:27 66 18 136/79 95 10/30/23 07:00 66 16 96 10/30/23 07:00 136/79 10/30/23 06:30 72 20 98 10/30/23 06:26 83 25 H 99 10/30/23 06:26 143/86 H 10/30/23 06:26 79 10/30/23 06:13 98.6 F 77 18 151/82 H 99 O2 Del Method 10/30/23 16:37 Room Air 10/30/23 15:30 10/30/23 15:00 10/30/23 14:55 10/30/23 14:55 10/30/23 14:30 10/30/23 14:00 10/30/23 13:30 10/30/23 13:29 10/30/23 13:29 10/30/23 13:11 10/30/23 13:11 10/30/23 13:05 10/30/23 12:35 10/30/23 12:35 10/30/23 12:35 Room Air 10/30/23 12:33 10/30/23 12:00 10/30/23 12:00 10/30/23 11:52 10/30/23 09:30 10/30/23 09:20 10/30/23 09:20 10/30/23 09:00 10/30/23 09:00 10/30/23 08:30 10/30/23 08:18 Room Air 10/30/23 08:05 10/30/23 08:05 10/30/23 07:30 10/30/23 07:27 Room Air 10/30/23 07:00 10/30/23 07:00 10/30/23 06:30 10/30/23 06:26 10/30/23 06:26 10/30/23 06:26 10/30/23 06:13 Room Air PG Care Time/CCT Total # of Minutes Spent Total Time Spent with Patient: Total time spent is greater than 50% in coordination of care (as documented) at patient's floor/unit and/or counseling patient: Coding Level of Care Code 32133 OFFICE CONSULT LVL Diagnoses Vaginal bleeding N93.9
[2023-10-30] MEDS: MIDAZOLAM HCL 1 MG/ML 2ML VIAL ONE ×3 (18:56→19:03)
[2023-10-30] MEDS: fentaNYL citrate PF 100 MCG/2 ML VIAL ONE ×2 (18:57→19:16)
[2023-10-30] MEDS: niCARdipine HCL INJ 2.5 MG/ML 10 ML AMP ONE (18:57)
[2023-10-30] MEDS: NITROGLYCERIN/D5W 100MCG/ML 20ML SYR ONE (18:57)
[2023-10-30] MEDS: ASPIRIN 81 MG CHEW ONE (18:57)
--- NOTE | 2023-10-30 18:57 | Cardiac Catheterization ---
[facility] Data: Base Wad Operator Adjuster Cardiac Status Clinical evaluation leading to the procedure CAD Presenation: Unstable angina Anginal Classification: CCS IV Heart Failure: No Cardiogenic Shock within 24 Hours: No Cardiac Arrest within 24 Hours: No Imaging Studies Past 6 Months: Yes Stress Studies Past 6 Months: No Cardiac CTA: Yes - Unavailable (mild CAD reported) Coronary Anatomy Dominant: Right Diagnostic Physicians Name: Harrison Guzman MD Closure Device Percutaneous Entry Location: Radial Closure Device: Radial Band (following PCI attempt) Recommendations: PCI without planned CABG Cardiac Cath Procedure Full Procedure Date October 30, 2023 Pre-Procedure Diagnosis Pre-Procedure Diagnosis: Acute Coronary Syndrome and Angina AUC Score AUC Score: 8 Post-Procedure Diagnosis Post-Procedure Diagnosis: Severe CAD and Normal Intracardiac Pressures Procedure(s) Performed Procedure(s) Performed: Coronary Angiography and Left Heart Cath Manager Fire Harrison Guzman MD Frame Feeder(s) Showers Estimated Blood Loss Estimated Blood Loss: < 25 ml Medication(s) Medication(s): Fentanyl, Heparin, Lidocaine 1%, Nicardipine and Versed Summary of Findings Procedures: 1. Coronary angiography 2. Left heart catheterization 3. Moderate sedation 4. Right radial artery angiography Indication: Mrs. Boothe is a pleasant 73-year-old female with CAD based on coronary CTA with symptoms concerning for crescendo angina. Presenting high- sensitivity troponin was normal and repeat mildly elevated. Cardiac catheterization was recommended. Coronary angiography: 1. Left main: No significant CAD. 2. Left anterior descending: LAD wraps around the apex. Late proximal to early mid LAD 70 to 80%, involving bifurcation of D1. Small to medium caliber D1 ostial approximately 60%. ACE-3 flow in the LAD system. 3. Circumflex: Medium caliber vessel without significant CAD. 4. Right coronary artery: RCA is dominant. Medium caliber vessel. Minimal luminal irregularities within the mid RCA. PDA and PL without significant CAD. 5. Ramus intermedius: Medium to large caliber vessel without significant CAD. Ramus has multiple branches. Left heart catheterization: 1. Left ventriculography was not performed. 2. No aortic stenosis. Peak to peak gradient across the aortic valve is 0. 3. LVEDP 6 mmHg. Right radial artery angiography: 1. J-tip wire was unable to be advanced initially. Angiography was performed and demonstrated medium caliber vessel but tortuous. A Glidewire was used to successfully advance the equipment to the ascending aorta. Moderate sedation: 1. Sedation start time: 1812 2. Sedation end time: 1839 Impression: 1. Severe CAD involving early mid LAD. 2. Normal left-sided filling pressure. 3. No aortic stenosis. Plan: 1. Images were reviewed with Dr. Dale of interventional cardiology who plans on attempting PCI of the LAD. 2. Risk factor modification. Hemodynamics Rest Ao:: 132/62 Final Ao: 151/69 LV: 140/0/6 Recommendations Recommendations: PCI without planned CABG Specimens Specimens: None Radiation Exposure (mGy) 219 mGy. Fluoro time 6.6 min. Contrast (mls) 35 ml Procedural Complication(s) None Disposition remains in process laboratory specialist for interventional cardiology I attest to the content of the Intraoperative Record and any orders documented therein. Any exceptions are noted below. [facility] Card Cath Procedure Codes Cardiac Catheterization Procedure 1: Cardiovascular Cath Procedures: 82024 Coronaries and LHC (+/-LV) Moderate Sedation Procedure 1: Sedation/Anesthesia: 04526 Mod Sedation by the same physician;Init15 Min Child Age 5 & Up Procedure 2: Sedation/Anesthesia: 29585 Mod Sedation by the same physician; Ea [id number] Minutes PG Care Time/CCT Total # of Minutes Spent Total Time Spent with Patient: Total time spent is greater than 50% in coordination of care (as documented) at patient's floor/unit and/or counseling patient:
[2023-10-30] MEDS: HEPARIN (PORCINE) 1000 UNIT/ML 10 ML (CATH LAB USE ONLY) ONE (19:15)
[2023-10-30] MEDS: OPTIRAY 350 ONE (19:16)
[2023-10-30] MEDS: CLOPIDOGREL BISULFATE 300 MG TAB ONE (19:17)
[2023-10-30] MEDS: PANTOprazole 40 MG TAB PO SCH (20:50)
[2023-10-30] MEDS: MIMVEY PO SCH (22:08)
[2023-10-30 22:18] LABS: Hematocrit (blood only) 37.9 % (37.0-47.0); Hemoglobin 12.8 g/dl (12.0-16.0)
--- NOTE | 2023-10-30 23:18 | Cardiac Catheterization ---
[facility] Data: Gusset Edger Cardiac Status Clinical evaluation leading to the procedure CAD Presenation: Non STEMI Anginal Classification: CCS IV Diagnostic Physicians Name: Lupillo Dale MD Closure Device Recommendations: PCI without planned CABG Cardiac Cath Procedure Full Procedure Date October 30, 2023 Pre-Procedure Diagnosis Pre-Procedure Diagnosis: Acute Coronary Syndrome and Angina AUC Score AUC Score: 8 Post-Procedure Diagnosis Post-Procedure Diagnosis: Severe CAD and Successful PCI Procedure(s) Performed Procedure(s) Performed: Coronary Angiography, PTCA and Drug Eluting Stent Furnace Packer Lupillo Dale MD Box Annealer(s) Showers Estimated Blood Loss Estimated Blood Loss: < 25 ml Medication(s) Medication(s): Clopidogrel, Fentanyl, Heparin, Lidocaine 1%, Nicardipine and Versed Summary of Findings Indication: ACS Access: 6 Fr right radial artery Catheters: EBU 3.5 guide Findings: For full details of patient's coronary angiography please see cath report dictated by Dr. Guzman. Briefly, patient found to have 75% lateproximal LAD stenosis at takeoff of D1. Small to medium caliber D1 with 60% ostial stenosis. Decision to proceed with PCI. -- PCI -- Antithrombotic therapy: Heparin, clopidogrel Procedure: Left main cannulated with EBU 3.5 guide Pre-procedure flow ACE 3 BMW wire passed across lesion into distal vessel Proximal to mid LAD lesion predilated with 2.5 compliant balloon Dilated lesion stented with 2.5 x 15 mm Carlos Eduardo DAVINA Stent post-dilated with 3.0 noncompliant balloon IC vasodilators administered for spasm Residual ostial stenosis of jailed D1. Whisper wire navigated into D1 across stents. Ostium of D1 through stent struts dilated with 2.0 balloon Post procedure ACE 3 flow, stent well expanded with minimal residual stenosis, mild residual stenosis of ostial jailed D1 with ACE-3 flow. No other apparent cardiac complications. Arterial Closure: TR band Summary: 1. Successful PCI of proximal to mid LAD with single drug-eluting stent (2.5 x 15 mm Carlos Eduardo; postdilated with 3.0 NC). PTCA of ostium of jailed first diagonal with 2.0 balloon Recommendations: To PCU for continued monitoring Loaded with clopidogrel 600 mg in Gusset Edger Continue dual-antiplatelet therapy for at least 6 months Continue statin, and ASCVD risk factor modification Consult cardiac Rehab Hemodynamics Rest Ao:: 132/62/91 Final Ao: 151/69/100 LV: 130/7 Recommendations Recommendations: PCI without planned CABG Specimens Specimens: None Radiation Exposure (mGy) 822 Contrast (mls) 130 Anesthesia Moderate 5504-7815 Procedural Complication(s) None Disposition PCU I attest to the content of the Intraoperative Record and any orders documented therein. Any exceptions are noted below. [facility] Card Cath Procedure Codes Moderate Sedation Procedure 1: Sedation/Anesthesia: 05792 Mod Sedation by the same physician; Ea [id number] Minutes Stenting Procedure 1: Cardiovascular Stent Procedures: 68067 Perc transcatheter placement of intracoronary stent(s), with ang PG Care Time/CCT Total # of Minutes Spent Total Time Spent with Patient: Total time spent is greater than 50% in coordination of care (as documented) at patient's floor/unit and/or counseling patient:
[2023-10-30] MEDS: MONTELUKAST SODIUM 10 MG TABLET PO SCH (23:37)
[2023-10-31 04:28] LABS: Basophils # (auto) 0.04 K/uL (0.00-0.20); Basophils % (auto) 0.4 %; Eosinophils # (auto) 0.15 K/uL (0.00-0.50); Eosinophils % (auto) 1.6 %; Hematocrit (blood only) 36.6 % (37.0-47.0); Hemoglobin 12.5 g/dl (12.0-16.0); Immature Granulocytes # (auto) 0.02 K/uL (0.01-0.20); Immature Granulocytes % (auto) 0.2 %; Lymphocytes # (auto) 2.37 K/uL (1.20-3.40); Mean Corpuscular Hemoglobin 30.1 pg (25.0-34.0); Mean Corpuscular Hgb Conc 34.2 g/dL (32.0-36.0); Mean Corpuscular Volume 88.2 fL (80.0-100.0); Mean Platelet Volume 9.5 fL (9.4-12.4); Monocytes # (auto) 0.62 K/uL (0.11-0.59); Monocytes % (auto) 6.8 %; Neutrophils # (auto) 5.92 K/uL (1.40-6.50); Platelet Count 183 K/uL (130-400); RDW Coefficient of Variation 13.2 % (11.5-14.5); Red Blood Count 4.15 M/uL (4.20-5.40); White Blood Count 9.12 K/ul (4.8-10.8)
[2023-10-31 04:44] LABS: BUN Creatinine Ratio 21.1 (10-20); Calcium 8.3 mg/dl (8.6-10.3); Creatinine Clr Calc Pharmacy 83.1 ml/min; Est GFR (African American) 108.1 ml/min; Est GFR (Non-African American) 93.3 ml/min; Magnesium 1.8 mg/dl (1.7-2.4); Potassium 3.8 mmol/L (3.5-5.1)
[2023-10-31 04:53] LABS: Chol HDL Ratio 2.2 (0-5); Troponin I High Sensitivity 879.7 pg/ml (0-14)
--- NOTE | 2023-10-31 07:37 | Electrocardiogram Report ---
Test Reason : Blood Pressure : / mmHG Vent. Rate : 071 BPM Atrial Rate : 071 BPM P-R Int : 132 ms QRS Dur : 076 ms QT Int : 394 ms P-R-T Axes : 048 059 040 degrees QTc Int : 428 ms Normal sinus rhythm Normal ECG When compared with ECG of 03-DEC-2020 10:37, No significant change was found Confirmed by Harrison Guzman ([id number]) on 10/31/2023 7:36:46 AM Referred By: REFERRED SELF Confirmed By:Harrison Guzman
--- NOTE | 2023-10-31 08:42 | Electrocardiogram Report ---
Test Reason : Blood Pressure : / mmHG Vent. Rate : 071 BPM Atrial Rate : 071 BPM P-R Int : 128 ms QRS Dur : 080 ms QT Int : 396 ms P-R-T Axes : 032 067 -05 degrees QTc Int : 430 ms Normal sinus rhythm T wave abnormality, consider anterior ischemia Abnormal ECG When compared with ECG of 30-OCT-2023 06:24, Nonspecific T wave abnormality now evident in Inferior leads T wave inversion now evident in Anterior leads Confirmed by Harrison Guzman ([id number]) on 10/31/2023 8:42:17 AM Referred By: REFERRED SELF Confirmed By:Harrison Guzman
[2023-10-31] MEDS: CLOPIDOGREL BISULFATE 75 MG TAB PO SCH (08:52)
[2023-10-31] MEDS: ATORVASTATIN 40 MG TAB PO SCH (08:53)
[2023-10-31] MEDS: TRIAMCINOLONE ACET 0.5% CR 15 GM TUBE TOP SCH (08:54)
[2023-10-31] MEDS: POTASSIUM CHLORIDE CRTAB 20 MEQ TABCR PO STA (08:57)
[2023-10-31] MEDS: MAGNESIUM SULFATE / D5W 1 GM/100 ML BAG IV ONE (08:59)
[2023-10-31] MEDS: ASPIRIN 81 MG CHEW ONE (09:02)
[2023-10-31] MEDS: ASPIRIN 81 MG ECTAB PO SCH (09:46)
--- NOTE | 2023-10-31 14:41 | Cardiology Progress Note ---
Date of Service October 31, 2023 Assessment & Plan (1) CAD (coronary artery disease): Plan Post PCI with DAVINA to LAD 2. Dyslipidemia 3. Hyponatremia 4. GERD 5. Vaginal bleeding No recurrent chest pain. Troponin appears to be peaking post PCI Hemodynamically and electrically stable No significant access site complications Hemoglobin stable Continue DAPT with aspirin, clopidogrel Continue current statin Start low-dose Toprol-XL. Consider HOLLY as an outpatient. Continue PPI Repeat HS TropI this afternoon. Okay with discharge from a cardiac standpoint. Follow-up with Dr. Guzman in 2 weeks. Admission and Anticipated Discharge Date Admission Date: October 30, 2023 Subjective Feeling well this morning. Denies any recurrent chest pain. Had some issues with bleeding from right radial artery access site overnight. No significant pain this morning. Telemetry reviewedno events. Review of Systems Review of Systems: All systems reviewed & are unremarkable except as noted in HPI & below Physical Exam Physical Exam: General: Comfortable HEENT: Sclerae anicteric Lungs: Clear to auscultation bilaterally, no crackles or wheezes Cardiac: Regular rate and rhythm, no murmurs. Vascular: Right radial artery access site with minimal ecchymosis, no hematoma. Distal pulse and sensation intact. Abdomen: Soft, nontender Extremities: Well perfused, no peripheral edema Neuro: Nonfocal Psych: Alert orient x3, normal affect and mood Results & Data Vital Signs (Past 12 Hours) Vital Signs Temp Pulse Resp BP Pulse Ox 10/31/23 09:00 77 21 10/31/23 08:41 76 18 94 10/31/23 08:41 127/69 10/31/23 08:00 77 19 10/31/23 07:00 68 16 10/31/23 05:30 63 16 10/31/23 05:00 71 17 10/31/23 04:30 73 16 10/31/23 04:00 72 16 10/31/23 03:30 65 22 10/31/23 03:30 97.5 F L 10/31/23 03:01 76 16 98 10/31/23 03:01 112/78 10/31/23 03:00 74 14 95 10/31/23 02:45 68 14 97 10/31/23 02:45 111/74 PG Care Time/CCT Total # of Minutes Spent Total Time Spent with Patient: Total time spent is greater than 50% in coordination of care (as documented) at patient's floor/unit and/or counseling patient: Coding Level of Care Code 52291 SUB INP/OBS CARE MIN Diagnoses CAD (coronary artery disease) I25.10
--- NOTE | 2023-10-31 16:40 | Hospitalist Progress Note ---
Date of Service October 31, 2023 Assessment & Plan (1) NSTEMI (non-ST elevated myocardial infarction): Plan: Presented with 4 episodes of severe chest pain that woke her from sleep, associated with diaphoresis, lasting about 5 minutes each since Thursday 3 Family history of mother with IN at age 35, otherwise patient does not have diabetes, hypertension. She is not a smoker. She has noticed dyspnea on exertion gradually progressing over the last year which perhaps was an anginal equivalent Chest CTA revealed no thoracic aortic dissection or pulmonary emboli Troponin 12.7-->33.9 on arrival and then she had T wave inversions in the anterolateral leads on repeat ECG She was started on a heparin drip but then had significant vaginal bleeding and this was held, gynecology consulted as below Echo on 10/30/2023 revealed LVEF at 60-65% Cardiology recommended urgent cardiac catheterization-she had DAVINA placed to the late proximal LAD had a 75% stenosis Started on dual antiplatelet therapy with aspirin and Plavix Lipids good-increased atorvastatin to high intensity dose, but patient reports that she frequently gets headaches with taking atorvastatin-will change to Crestor 20 mg daily Had right radial artery access site bleeding postprocedure but now no hematoma, bleeding has stopped -Continue aspirin, Plavix for at least 6 months, then aspirin monotherapy -Discontinue atorvastatin and start Crestor 20 mg daily given headaches -Cardiology recommends starting low-dose [id number] give 12.5 mg daily -Consider HOLLY inhibitor as an outpatient if blood pressure can tolerate -Keep electrolytes replete-give p.o. potassium chloride and 1 g IV magnesium t sudha -Continue to monitor on telemetry for arrhythmias-none thus far -Follow-up with cardiology as an outpatient and needs referral to cardiac rehab (2) CAD (coronary artery disease): Plan: Severe, as above (3) Vaginal bleeding: Plan: Had significant episode of vaginal bleeding after starting on heparin drip for NSTEMI Between vaginal bleeding and radial wrist site bleeding, patient did have a slight acute blood loss anemia with hemoglobin dropping to 12.5 from 14, hemodynamically stable This is now improving off heparin drip She has a history of vulvar dermatitis but also cervical ectropion being cauterized in the office the day prior to admission, however gynecology at that time recommended pelvic ultrasound to look for recurrent uterine polyps that she had before Deferred to [facility] for outpatient treatment Follow CBC (4) Positive antinuclear antibody: Plan: Following with rheumatology with ongoing workup (5) Asthma: Plan: No acute issues Continue maintenance inhaler (6) Postmenopausal hormone replacement therapy: Plan: Should discuss with [facility] also about weaning off of hormone replacement therapy in the setting of acute IN Continue for now (7) GERD (gastroesophageal reflux disease): Plan: Continue pantoprazole BID Plan Disposition: Continued stay on PCU due to ongoing vaginal bleeding which is improving. Likely to discharge home tomorrow Full code VTE PPx: Heparin Drip held following vaginal bleed Discussed all care with daughter at the bedside at length Admission and Anticipated Discharge Date Admission Date: October 30, 2023 Subjective Patient reports some ongoing vaginal bleeding but much sponge packer than yesterday. No chest pains. She did get out of bed and ambulate. She had bleeding from her radial artery site through the night which is now stopped. Telemetry with normal sinus rhythm, no arrhythmias Physical Exam Constitutional: WD/WN, vitals as above Neck: trachea midline, no thyromegaly Respiratory: normal respiratory effort, lungs clear to auscultation Cardiovascular: RRR, no murmur, no edema Chest (Breasts): Chest: normal inspection of chest Gastrointestinal (Abdomen): normal bowel sounds, soft, nontender, no hepatosplenomegaly Musculoskeletal: Extremities: extremities normal to inspection; no cyanosis and no clubbing Skin: no rashes, warm and dry Neurologic: moves all extremities and awake; no focal motor deficits Psychiatric: A+Ox3, euthymic affect Lymphatic: no lymphedema Results & Data Results & Data Vital Signs (Past 12 Hours) Vital Signs Temp Pulse Resp BP Pulse Ox O2 Del Method 10/31/23 14:00 70 19 10/31/23 13:00 75 21 10/31/23 12:00 89 16 10/31/23 11:52 75 15 93 Room Air 10/31/23 11:52 104/73 10/31/23 11:38 36.5 C 10/31/23 11:00 67 20 10/31/23 09:00 77 21 10/31/23 08:41 76 18 94 10/31/23 08:41 127/69 10/31/23 08:15 36.6 C 10/31/23 08:00 77 19 10/31/23 07:00 68 16 10/31/23 05:30 63 16 10/31/23 05:00 71 17 Laboratory Results CBC, BMP, magnesium, troponin level x 2 reviewed PG Care Time/CCT Total # of Minutes Spent Total Time Spent with Patient: Total time spent is greater than 50% in coordination of care (as documented) at patient's floor/unit and/or counseling patient: Coding Level of Care Code 80887 SUB INP/OBS CARE 3/50MIN Diagnoses NSTEMI (non-ST elevated myocardial infarction) I21.4 CAD (coronary artery disease) I25.10 Vaginal bleeding N93.9 Positive antinuclear antibody R76.8 Asthma J45.909 Postmenopausal hormone replacement therapy Z79.890 GERD (gastroesophageal reflux disease) K21.9
[2023-10-31] MEDS: METOPROLOL SUCC 25MG EXT REL TAB PO SCH (17:02)
[2023-11-01 06:54] LABS: Basophils # (auto) 0.03 K/uL (0.00-0.20); Basophils % (auto) 0.4 %; Eosinophils # (auto) 0.13 K/uL (0.00-0.50); Eosinophils % (auto) 1.9 %; Hematocrit (blood only) 39.3 % (37.0-47.0); Hemoglobin 13.6 g/dl (12.0-16.0); Immature Granulocytes # (auto) 0.01 K/uL (0.01-0.20); Immature Granulocytes % (auto) 0.1 %; Lymphocytes % (auto) 28.9 %; Mean Corpuscular Hgb Conc 34.6 g/dL (32.0-36.0); Mean Corpuscular Volume 86.6 fL (80.0-100.0); Mean Platelet Volume 9.2 fL (9.4-12.4); Monocytes # (auto) 0.65 K/uL (0.11-0.59); Monocytes % (auto) 9.4 %; Neutrophils # (auto) 4.11 K/uL (1.40-6.50); Neutrophils % (auto) 59.3 %; Platelet Count 182 K/uL (130-400); RDW Coefficient of Variation 13.2 % (11.5-14.5); RDW Standard Deviation 41.3 fL (36.4-46.3); Red Blood Count 4.54 M/uL (4.20-5.40); White Blood Count 6.93 K/ul (4.8-10.8)
[2023-11-01 07:17] LABS: BUN Creatinine Ratio 19.1 (10-20); Calcium 8.9 mg/dl (8.6-10.3); Creatinine Clr Calc Pharmacy 69.5 ml/min; Potassium 4.4 mmol/L (3.5-5.1)
[2023-11-01] MEDS: ROSUVASTATIN CALCIUM 20 MG TAB PO SCH (08:00)
--- NOTE | 2023-11-01 12:23 | Electrocardiogram Report ---
Test Reason : Blood Pressure : / mmHG Vent. Rate : 068 BPM Atrial Rate : 068 BPM P-R Int : 128 ms QRS Dur : 080 ms QT Int : 374 ms P-R-T Axes : 065 074 053 degrees QTc Int : 397 ms Normal sinus rhythm Nonspecific T wave abnormality Abnormal ECG When compared with ECG of 30-OCT-2023 16:16, Nonspecific T wave abnormality has replaced inverted T waves in Anterolateral leads Confirmed by Lupillo Ryan ([id number]) on 11/01/2023 12:23:21 PM Referred By: REFERRED SELF Confirmed By:Albert Ryan
--- NOTE | 2023-11-01 12:47 | Discharge Summary ---
Discharge Summary Date of Service November 01, 2023 Notes For Next Care Provider Needs [facility] follow up for vaginal bleeding Medication Changes From Visit Added ASA 81mg po daily, Plavix 75mg po daily, metoprolol succinate 12.5mg po daily, and Crestor 20mg po daily Admission HPI Per Admitting Provider Marianne is a 73-year-old female with PMH of migraines, GERD, anxiety, asthma, TMJ, sleep disturbances, and tinnitus. She presented for intermittent chest pain that first started upon waking on Friday 10/20 while she was in [place]. Patient reports that the severe chest pain woke her from sleep around 06, and she was having cold sweats, nausea, and severe chest pain that radiated down both arms. That episode lasted for approximately 5 to 15 minutes, and resulted in her feeling fatigued throughout the rest of the day; she reports she was unable to get off the couch. No prior experiences of chest pain like that one. The pain returned the following day on around 2 AM, then again at 4:30 AM, and she called 911; EKG was normal at that time. Following her ED visit in [place], she reports she has been having chest discomfort transverse across her upper chest x 1 week, and that she has been feeling tired. Recurrence of severe chest pain upon waking at 5 AM on 10/29 and she came to the ED. She notes that the chest pain is unpredictable; for instance she had chest discomfort when walking up steps (and had to sit), but other times it is at rest. She also noticed that it came on with urination at one point, but did not come on during her bowel movement. She reports she is not taking any additional medications for her pain. She was recently started on Lipitor and aspirin 81 mg daily starting last 10/21, which she reports has been taking. Besides this, she reports she only takes Singulair, pantoprazole, and Mimvey. No prior medical history of heart attacks, CVA, or PE/DVT. History of a brain aneurysm in 2014, which resolved. Family history of cardiac disease, with her mother having an IA in her 30s. Patient denies smoking, tobacco use, or recent alcohol use. Vital stable at time of admission. She denies chest pain at time of admission. ED course: Heparin IV with bolus Pantoprazole 40 mg IV NSS 1000 mL IV ROS: Patient endorses chills/night-sweats upon waking with severe CP, YUSUF x 1 episode going up steps, intermittent severe CP with radiation down both arms, OLSON (which patient attributes to atorvastatin), and nausea. Patient denies fever, chest palpitations, SOB at rest, cough, abdominal pain, vomiting, or diarrhea. Principal Dx & Hospital Course #1 = Principal Diagnosis (1) NSTEMI (non-ST elevated myocardial infarction): Presented with 4 episodes of severe chest pain that woke her from sleep, associated with diaphoresis, lasting about 5 minutes each since Friday 10/20 Family history of mother with IA at age 35, otherwise patient does not have diabetes, hypertension. She is not a smoker. She has noticed dyspnea on exertion gradually progressing over the last year which perhaps was an anginal equivalent Chest CTA revealed no thoracic aortic dissection or pulmonary emboli Troponin 12.7-->33.9 on arrival and then she had T wave inversions in the anterolateral leads on repeat ECG Troponin peaked at 1158 She was started on a heparin drip but then had significant vaginal bleeding and this was held, gynecology consulted as below Echo on 10/30/2023 revealed LVEF at 60-65% Cardiology recommended urgent cardiac catheterization-she had DAVINA placed to the late proximal LAD had a 75% stenosis Started on dual antiplatelet therapy with aspirin and Plavix Lipids good-increased atorvastatin to high intensity dose, but patient reports that she frequently gets headaches with taking atorvastatin-changed to Crestor 20 mg daily Had right radial artery access site bleeding postprocedure but now no hematoma, bleeding has stopped -Continue aspirin, Plavix for at least 6 months, then aspirin monotherapy -Discontinued atorvastatin and started Crestor 20 mg daily given headaches -Cardiology recommends starting low-dose Toprol-XL 12.5 mg daily (with low- normal BPs, need to watch BP) -Consider HOLLY inhibitor as an outpatient if blood pressure can tolerate -Monitored on telemetry for arrhythmias-none -Follow-up with cardiology as an outpatient and needs referral to cardiac rehab (2) CAD (coronary artery disease): Severe, as above (3) Vaginal bleeding: Had significant episode of vaginal bleeding after starting on heparin drip for NSTEMI Between vaginal bleeding and radial wrist site bleeding, patient did have a slight acute blood loss anemia with hemoglobin dropping to 12.5 from 14, hemodynamically stable This is now improving off heparin drip, but persists She has a history of vulvar dermatitis but also cervical ectropion being cauterized in the office the day prior to admission, however gynecology at that time recommended pelvic ultrasound to look for recurrent uterine polyps that she had before Deferred to [facility] for outpatient treatment Follow CBC as outpt Do NOT stop DAPT without checking with Cardiology first (4) Positive antinuclear antibody: Following with rheumatology with ongoing workup (5) Asthma: No acute issues Continue maintenance inhaler (6) Postmenopausal hormone replacement therapy: Should discuss with [facility] also about weaning off of hormone replacement therapy in the setting of acute IA Continue for now (7) GERD (gastroesophageal reflux disease): Continue pantoprazole BID Plan Disposition: dc to home Full code Discussed all care with daughter at the bedside at length Discharge Exam Constitutional WD/WN, vitals as above Neck trachea midline, no thyromegaly Respiratory normal respiratory effort, lungs clear to auscultation Cardiovascular RRR, no murmur, no edema Chest (Breasts) Chest: normal inspection of chest Gastrointestinal (Abdomen) normal bowel sounds, soft, nontender, no hepatosplenomegaly Musculoskeletal Extremities: extremities normal to inspection; no cyanosis and no clubbing Skin no rashes, warm and dry Neurologic moves all extremities and awake; no focal motor deficits Psychiatric A+Ox3, euthymic affect Lymphatic no lymphedema Updated Medication List Medication Instructions Recorded Confirmed Type acyclovir 5 % topical ointment 1 appln topical UD PRN herpes 05/25/19 11/10/23 History labialis #1 g cholecalciferol (vitamin D3) 125 4,000 units PO QAM 05/25/19 11/10/23 History mcg (5,000 unit) tablet cyanocobalamin (vitamin B-12) 100 2,000 mcg PO QAM 05/25/19 11/10/23 History mcg tablet fluticasone propionate 50 2 sprays intranasal UD PRN nasal 05/25/19 11/10/23 History mcg/actuation nasal congestion spray,suspension hydrocortisone acetate 25 mg 25 mg NM UD PRN hemorrhoids #60 ea 05/25/19 11/10/23 History rectal suppository sodium chloride 0.65 % nasal spray 1 sprays intranasal UD PRN dry 05/25/19 11/10/23 History aerosol nasal passages Lactobacillus acidophilus 10 10,000 mmu cells PO DAILY 12/05/20 11/10/23 History billion cell capsule (Probiotic) acetaminophen 500 mg tablet 1,000 mg PO UD PRN Pain 12/05/20 11/10/23 History (Tylenol Extra Strength) elderberry fruit 200 mg capsule 200 mg PO DAILY 12/05/20 11/10/23 History multivitamin 1 cap PO DAILY 12/05/20 11/10/23 History diclofenac sodium 1 % topical gel 4 g topical UD PRN Pain 01/17/22 11/10/23 History meclizine 25 mg chewable tablet 25 mg PO UD PRN Vertigo 01/17/22 11/10/23 History alprazolam 0.5 mg tablet 0.5 mg PO BID PRN tinnitus #15 tabs 03/31/22 11/10/23 Rx valacyclovir 1 gram tablet 1,000 mg PO DAILY PRN Cold Sores 04/28/22 11/10/23 Rx #30 tabs clindamycin phosphate 1 % lotion 1 applic topical BID to axilla #60 10/06/22 11/10/23 Rx mL Mimvey 1 mg-0.5 mg tablet 1 tab PO QPM #84 tabs 01/30/23 11/10/23 Rx (estradiol-norethindrone acet) albuterol sulfate 90 mcg/actuation 2 puff inhalation Q6H PRN SHORT OF 05/25/23 11/10/23 Rx aerosol inhaler BREATH #8.5 grams lorazepam 0.5 mg tablet 0.5 - 1 mg (1 - 2 x 0.5 mg) PO HS 08/06/23 11/10/23 Rx PRN vertigo #60 tabs aspirin 81 mg tablet,delayed 81 mg PO DAILY 10/29/23 11/10/23 History release budesonide-formoterol HFA 80 2 puff inhalation BID PRN Other 10/29/23 11/10/23 History mcg-4.5 mcg/actuation aerosol inhaler (Symbicort) pantoprazole 40 mg tablet,delayed 40 mg .Route BID 10/29/23 11/10/23 History release montelukast 10 mg tablet 10 mg PO HS asthma #90 tabs 10/30/23 11/10/23 Rx clopidogrel 75 mg tablet 75 mg PO QAM #30 tabs 11/01/23 11/10/23 Rx metoprolol succinate 25 mg 12.5 mg (1/2 x 25 mg) PO QAM #15 11/01/23 11/10/23 Rx tablet,extended release 24 hr tabs rosuvastatin 20 mg tablet (Crestor) 20 mg PO QAM #30 tabs 11/01/23 11/10/23 Rx Hospital Stay Data Consultations 10/30/23 11:00 Consult Cardiology Stat 10/30/23 12:52 ED Decision to Admit Stat 10/30/23 16:47 Consult Gynecology Routine Procedures Performed Operation Date: 10/30/23 15:00 Actual Procedures p Cath, Left with Cors and Vent - Harrison Guzman MD p Drug Eluting Stent SGl Vessel - Lupillo Dale MD s Cineradiography w/Routine Exam - Lupillo Dale MD Diagnostic Imagining Performed 10/30/23 07:03 CT angio chest dissec wo/w con Stat 10/30/23 12:04 CL Cath Imgs for PACS use only Stat ECHO Pending Results Patient Have Any Pending Studies at Discharge: No Discharge Instructions Given to Patient (Per Discharging Provider) You were admitted and had a stent placed in your heart to fix a blockage causing your chest pain. You were started on aspirin, Plavix, metoprolol, and Crestor as new medications to treat your coronary artery disease. Please follow up with the [facility] within 1-2 weeks. For your vaginal bleeding, this may continue because of you having to take aspirin and Plavix for your heart and these are both blood thinners. Do NOT stop taking these medications without checking with your [facility]. You should follow up with Dr. Estrada as we discussed for further workup on your vaginal bleeding. If you develop heavy bleeding that soaks a super plus pad every hour, please return to the hospital. You should also discuss with Dr. Estrada about weaning off your hormone replacement therapy. ACTIVITY RECOMMENDATIONS: Excess manipulation of the wrist should be avoided for the next 24-48 hours. * No lifting over 2 pounds (approximately a 1/2 gallon of milk) with the utilized arm for 24 hours. * No strenuous activity such as bowling or tennis for 3 days. * Keep the site of the procedure covered with a bandage for 24 hours. *You may shower the day after the procedure. Do not take a tub bath or submerge the puncture site in water for the next 3 days. *Do not operate any motorized equipment for 3 days. SPECIAL CARE INSTRUCTIONS: The site may be slightly bruised and sore following your procedure. Should any of the following occur, contact the Dr. who performed your procedure. 1. Redness/inflammation, swelling, chills, or fever, or colored drainage at procedure site within 3-7 days after your procedure. 2. Coldness, discoloration, ongoing numbness, severe pain, or swelling. Expect mild tingling of hand and tenderness at the puncture site for up to three days. If this persists beyond three days, or other symptoms develop, notify the Dr. who performed your procedure. BLEEDING: If the procedure site on your wrist begins to bleed, do not panic 1. Place 1 or 2 fingers firmly just slightly above the insertion site to stop the bleeding. You may be able to feel your pulse as you hold pressure. 2. Lift your finger after 5 minutes to see if the bleeding has stopped. 3. Once the bleeding has stopped, gently wipe the wrist area clean with a bandage. * If the bleeding from your wrist does not stop after 10 minutes, or if there is a large amount of bleeding or spurting, call 911 (do not drive yourself to the hospital). SKIN IRRITATION: * You may experience some redness and/or swelling in the area where radiation was administered. If any skin irritation occurs, please contact your family physician. FOLLOW UP VISIT: Keep any scheduled doctor appointments. Total Time Total Time Spent Total Time Spent (In Minutes): 45 min Total Time Includes: Examination of the Patient, Discharge Planning, Medication Reconciliation and Communication With Other Providers (Cardiology) Coding Level of Care Code 68715 INP/OBS DISCH >30 MIN Diagnoses NSTEMI (non-ST elevated myocardial infarction) I21.4 CAD (coronary artery disease) I25.10 Vaginal bleeding N93.9 Positive antinuclear antibody R76.8 Asthma J45.909 Postmenopausal hormone replacement therapy Z79.890 GERD (gastroesophageal reflux disease) K21.9
--- OUTSIDE RECORDS SUMMARY | 2023-11-01 12:51 | External Medical Summary | Continuity of Care Document ---
Author Name Unknown Organization [facility] [address] [place], [place] [address] Address [address] [place] [id number] Care Team Providers Care Dress Marker Name Role Phone Willett, Crystal Dagmar Primary Care Physician [phone] [id number] Date(s): 10/29/23 - 10/29/23 [facility] [address] [place] [id number] [facility] [address] [place] [address] Encounter Diagnosis Hallux limitus of left foot(Discharge Diagnosis) - 10/29/23 Pes planus of left foot(Discharge Diagnosis) - 10/29/23 Lower limb length difference(Discharge Diagnosis) - 10/29/23 Discharge Disposition: Home or Self Care Attending Physician: LARRY Vitale Christina L Allergies, Adverse Reactions, Alerts No Known Allergies Assessment and Plan Extracted from: Title:Follow Up Visit Author:LARRY Vitale, Brad Whitley Date:10/29/23 1.Hallux limitus of left foot Patient is doing well without acute concernspatient respondedwellto injection recommend in the future if she develops any worsening pain none visit todayshe will follow-up with me on an as-needed basis 15-minute follow-up visit, 5-minute chart review, 10-minute [id number] 2.Pes planus of left foot 3.Lower limb length difference Immunizations Given and Recorded Vaccine Date Status Refusal Reason SARS-CoV-2 (COVID-19) mRNA-1273 vaccine 1 11/23/20 Recorded SARS-CoV-2 (COVID-19) mRNA-1273 vaccine 2 10/23/20 Recorded 1Result Comment: 2021-01-21: Historical information-source unspecified 2Result Comment: 2021-01-21: Historical information-source unspecified Medications aspirin 81 mg oral capsule Start: 10/29/23 11:10:00 EDT Start Date: 10/29/23 Status: Ordered atorvastatin 20 mg oral tablet Start: 10/29/23 11:09:00 EDT, 1 tab, PO, Daily Start Date: 10/29/23 Status: Ordered betamethasone Start: 01/13/23 11:43:00 EDT Start Date: 01/13/23 Status: Ordered betamethasone dipropionate 0.05% topical ointment Start: 08/18/23 8:30:00 EST, 1 appl, topical, bid, Disp# 45 g, Refills: 1, To itchy red rash twice a day, Pharmacy: [facility]/pharmacy #[id number] Start Date: 08/18/23 Status: Ordered clindamycin 1% topical lotion Start: 06/01/23 17:04:00 EDT, 60 mL, 1 APPLIC TOPICALLY TWICE A DAY FOR TO AXILLA Start Date: 06/01/23 Status: Ordered Finacea 15% topical gel Start: 07/23/23 16:57:00 EST, 1 appl, topical, bid, Disp# 30 g, Refills: 3, To face BID instead of metrocream, Pharmacy: [facility]/pharmacy #[id number] Start Date: 07/23/23 Status: Ordered Flexeril 10 mg oral tablet Start: 03/25/23 12:43:00 EDT, 1 tab, PO, qhs, Disp# 30 tab, Refills: 3, PRN: as needed for spasm, Pharmacy: [facility]/pharmacy #[id number] Start Date: 03/25/23 Stop Date: 07/23/23 Status: Ordered LORazepam 1 mg oral tablet Start: 10/22/22 13:25:00 EST, See Instructions, Disp# 2 tab, Refills: 0, 1 tab PO 45 min prior to scan. May repeat once., Pharmacy: [facility]/pharmacy #[id number] Start Date: 10/22/22 Status: Ordered meclizine 25 mg oral tablet CHEW AND SWALLOW 1 TABLET THREE TIMES A DAY. Start Date: 12/21/17 Status: Ordered metroNIDAZOLE 0.75% topical cream Start: 07/06/23 14:52:00 EST, 0.75%, topical, Daily, Disp# 45 g, Refills: 1, once or twice daily toface, Pharmacy: [facility]/pharmacy #[id number] Start Date: 07/06/23 Status: Ordered Mimvey 1 mg-0.5 mg oral tablet Start: 04/30/21 11:16:00 EDT Start Date: 04/30/21 Status: Ordered Multi-Day Plus Minerals oral tablet Start: 03/30/18 12:51:00 EDT, 1 tab, PO, Daily Start Date: 03/30/18 Status: Ordered ProAir HFA 90 mcg/inh inhalation aerosol Start: 02/26/17 10:26:00, 2 puff, inhaled, qid, PRN: as needed for wheezing Start Date: 02/26/17 Status: Ordered Protonix 40 mg oral delayed release tablet Start: 06/27/19 10:54:00 EST, 1 tab, PO, Daily Start Date: 06/27/19 Status: Ordered Robaxin 500 mg oral tablet Start: 03/26/23 10:02:00 EDT, 1 tab, PO, q8h, Disp# 90 tab, Refills: 2, Pharmacy: [facility]/pharmacy #[id number] Start Date: 03/26/23 Stop Date: 06/24/23 Status: Ordered Singulair Start: 09/17/11 14:15:00, 10 mg =, PO, Daily Start Date: 09/17/11 Status: Ordered Tylenol 500 mg oral tablet Start: 06/15/13 13:10:00, 2 tab, PO, q6h, PRN: as needed for pain Start Date: 06/15/13 Status: Ordered urea 40% topical cream Start: 04/22/23 16:23:00 EDT, 1 appl, topical, bid, Disp# 210 g, Refills: 2, To dry scaly area of arms and legs in thin layer BID PRN, PRN: as needed for itching, Pharmacy: [facility]/pharmacy #[id number] Start Date: 04/22/23 Status: Ordered Valtrex 500 mg oral tablet Start: 07/29/23 16:31:00 EST, 1 tab, PO, q24h, Disp# 90 tab, Refills: 3, one daily, Pharmacy: [facility]/pharmacy #[id number] Start Date: 07/29/23 Status: Ordered Valtrex 500 mg oral tablet Start: 06/04/22 8:15:00 EDT, 1 tab, PO, q24h, Disp# 10 tab, Refills: 1, Take one tab 5 days before and 5 days after treatment to lip, Pharmacy: [facility]/pharmacy #[id number] Start Date: 06/04/22 Stop Date: 06/24/22 Status: Ordered Vitamin B-12 Start: 09/17/11 14:14:00, 1 tab, PO, Daily, mL Start Date: 09/17/11 Status: Ordered Vitamin D3 Start: 09/17/11 14:15:00, 1 tab, PO, Daily Start Date: 09/17/11 Status: Ordered Voltaren 1% topical gel Start: 04/04/22 10:21:00 EDT, 4 g =, topical, qid, Disp# 100 g, Refills: 3, PRN: Pain, Pharmacy: [facility] Start Date: 04/04/22 Stop Date: 08/02/22 Status: Ordered Voltaren Topical 1% topical gel Start: 08/08/13 13:18:00, 1 appl, topical, qid, Disp# 300 g, Refills: 1, PRN: Pain, Pharmacy: [facility], 1 appl topical qid,PRN:Pain Start Date: 08/08/13 Status: Ordered Mental Status 10/29/23 Barriers to Learning one year None evide nt Mandatory Health Literacy Documentation Yes Health Literacy Communication Barriers N ever Primary Language Bengali Problem List Condition Confirmation Course Effective Dates Status Health Status Informant Actinic keratoses Confirmed Active Allergic rhinitis Confirmed Active Alopecia Confirmed Active Anesthesia complication 1 Confirmed Active Angiokeratoma Confirmed Active CMC arthritis Confirmed Active Lumbar facet arthropathy Confirmed Active Asthma Confirmed Active Asthma Confirmed Active Asthma Confirmed 02/07/10 Active Basal cell carcinoma Confirmed Active Body mass index [BMI] 21.0-21.9, adult Confirmed Active Pes anserine bursitis Confirmed Active Cervical spine pain Confirmed Active Cervical vertigo Confirmed Active Changing skin lesion Confirmed Active Chronic LBP Confirmed Active Fracture of toe of right foot Confirmed Active Blackhead Confirmed Active DDD (degenerative disc disease) Confirmed Active Degeneration of cervical intervertebral disc Confirmed 11/08/10 Active Annular disc tear Confirmed Active Dysfunction of eustachian tube Confirmed 08/02/10 Active Eczema Confirmed Active Foot pain Confirmed Active Boil Confirmed Active Herpes simplex Confirmed Active Hx of skin malignancy Confirmed Active Hormone replacement therapy Confirmed Active Inflamed seborrheic keratosis Confirmed Active Reaction to insect bite Confirmed Active Itching Confirmed Active Hyperkeratosis Confirmed Active Right knee pain Confirmed Active Knee pain 2 Confirmed Active Lower limb length difference Confirmed Active Lentigo Confirmed Active Lentigo Confirmed Active Lichenoid keratosis Confirmed Active Lumbar disc disease with radiculopathy Confirmed Active Facet syndrome, lumbar Confirmed Active Bilateral lumbar radiculopathy. Confirmed Active Hallux limitus Confirmed Active Hallux limitus of left foot Confirmed Active Myofascial pain Confirmed Active Neck pain Confirmed Active Unruptured cerebral aneurysm Confirmed Active Osteoarthritis of right hand Confirmed Active Osteoarthritis of left knee Confirmed Active Osteopenia Confirmed Active Coccydynia Confirmed Active Perioral dermatitis Confirmed Active Polyarthropathy Confirmed 01/26/06 Active Protrusion of lumbar intervertebral disc Confirmed Active Itchy skin Confirmed Active Right lumbar radiculitis Confirmed Active Raynaud disease Confirmed Active Rhytides Confirmed Active Rosacea Confirmed Active Seborrheic keratoses Confirmed Active Senile hyperkeratosis Confirmed Active Sensorineural hearing loss, bilateral Confirmed Active Sesamoiditis Confirmed Active Shoulder pain 3 Confirmed Active Shoulder tendinitis Confirmed Active Spider nevus Confirmed Active Hamstring strain Confirmed Active Subjective tinnitus Confirmed 08/02/10 Active Superficial thrombophlebitis Confirmed Active CMC (carpometacarpal) synovitis Confirmed Active Pes planus Confirmed Active Pes planus of left foot Confirmed Active Tear of medial meniscus of knee Confirmed Active Temporomandibular joint disorder Confirmed Active Tension-type headache Confirmed Active Tinnitus Confirmed Active Tobacco use and exposure - finding Confirmed 08/02/10 Active Trochanteric bursitis, right hip Confirmed Active Vertigo Confirmed 08/02/10 Active 1family history 2left 3right Diagnosis Diagnosis Type Effective Dates Health Status Clinical Service Informant Lower limb length difference Discharge Diagnosis 10/29/23 Hallux limitus of left foot Discharge Diagnosis 10/29/23 Pes planus of left foot Discharge Diagnosis 10/29/23 Procedures Procedure Date Related Diagnosis Body Site Status Brain aneurysm 1 02/26/17 Complete d Surgery 2015 Completed Angiogram 06/28/15 Completed Colonoscopy 06/2013 Completed Chemical peel, multiple 2010 Completed mohs closure 2008 Completed Mohs Surgery 2006 Completed Bilateral blepharoplasty of upper eyelids 2005 Completed section 1985 Complete d Removal Benign Tumor from Spinal Area 1970 Completed Tonsillectomy 1955 Completed 1Embolic Pipeline Device 2anerysm procedure in brain 75062 - Solar Veena - 2011 x 2 [id number] Vital Signs Most recent to oldest [Reference Range]: 1 Height 165.4 cm (10/29/23 11:11 AM) Patient Weight 58.4 kg (10/29/23 11:11 AM) Body Mass Index 21.35 kg/m2 (10/29/23 11:11 AM) Social History Social History Type Response Smoking Status Never smoked cigaret jeet Sex Female Implantable Device List Procedure Provider Procedure Date Device Type Site Unknown Unknown 02/26/17 Unknown Unknown Device Identifier Serial Number Lot or Batch Number Manufacturing Date Expiration Date Distinct Identification Code MRI Safety Implantable Status Assigning Authority Unknown 1 Unknown Unknown Unknown Unknown Unknown MR Conditi onal Active Unknown 1Model: Pipeline Flex Embolization DeviceGeneric: stent Model Number: [id number] (3) Models Material: nitinol Summary: MR Conditional - See Reference Max. Field: 3 TeslaNote: Non-clinical testing has demonstrated the PipelineTM embolization device and PipelineTM Flex embolization device are MR Conditional. It can be scanned safely under the following conditions: static magnetic field of 3 Betsy or less. spatial gradient field of 720 Gauss/cm or less. maximum whole body averaged specific absorption rate (LIT) of 4.0W/kg for 15 minutes of scanning. In non-clinical testing, the PipelineTM embolization device and PipelineTM Flex embolization device produced a temperature rise of le ss than 0.6C at a maximum whole body averaged specific absorption rate (LIT) of 4.0 W/kg for 15 minutes of MR scanning in a 3 Betsy MR 750 Battery Medics Signa 20.0 system MR Scanner. Based on the non-clinicaltesting of the 5.0 mm device using standard views, the worst case maximum artifact was < 4 mm when subjected to 3.0 Betsy . Ortho Outpt Note * LARRY Vitale, Lucero Whitley: PERFORM Event Display: Ortho Outpt Note Authored Date: [id number] Chief Complaint left foot cortisone injection follow-up Primary Care Provider MD Brennon, Crystal Leavitt Subjective Patient is a very pleasant 73-year-old female presenting today for careand follow-up last seen June 18, 2023. She has a history of left foot pain secondary to arthritisshe has received ultrasound-guided injections in the past with the first tarsometatarsal jointhas had MRIs showing arthritis of the left footshe also has a new issue of the lower leg discrepancy -I did not recommend new orthotics I recommended anti-inflammatory medicine such as Tylenol or topical Voltaren Maira recommended an injection which was given to the left first metatarsal phalangeal -Regards to her foot painpatient is doing very well she has no acute concerns for the injection was extremely helpful in resolving her discomfort she has not needed any further injection today due to pain relief. On a side note she believes she had cardiac issues and is actively being worked up Let me know if she is not able to be as active as normal but is not infected with pain but due to her cardiac cardiac history Review of Systems No pertinent positives Objective Vitals & Measurements WT:58.400kg(Dosing) WT:58.4kg Physical Exam Problem focused left foot: Dorsalis pedis and posterior tibial pulses fully palpable 2 out of 4 Neurovascular status intact no burning numbness or tingling noted. Left first metatarsal phalangeal joint has a history of hallux limitus/hallux rigidusand has responded greatly to her last injection which he used a smaller needleshe developed occasional sesamoiditis again secondary to that hallux limitus no tenderness noted today continue with orthotics and supportive shoe gear. She had a limb length study that shows that the right lower extremity is longer than the left by just 0.3 cm. Assessment/Plan 1.Hallux limitus of left foot Patient is doing well without acute concernspatient respondedwellto injection recommend in the future if she develops any worsening pain none visit todayshe will follow-up with me on an as-needed basis 15-minute follow-up visit, 5-minute chart review, 10-minute [id number] 2.Pes planus of left foot 3.Lower limb length difference Electronic Signature on File Electronically Reviewed/Signed by: Lucero Vitale DPM Author Signature Dt/Tm:10/29/2023 11:31 AM Division of Sports Medicine CLR Patient Care team information Care Team Personnel Name: LARRY Vitale, Lucero Whitley Position: Physician - Podiatry Member Role: Lifetime Relationship Address: Address: [address] [address] Name: MD Brennon, Crystal Leavitt Position: Referring Member Role: Primary Care Provider Address: Address: [address] [place] [address] [place] [address] Care Team Related Persons Name: TIERRA AHN Address: home [address] [place] [phone] Name: SHAMAR AHN Address: [address] [id number]
== END 2023-11-01 13:49 | disposition home or self-care (01) ==
LOC: 1E 06:10 → ED 06:10 → SUATTDRO 14:21 → 1E 16:03 → 2E 11-01 05:08

== ENCOUNTER 2024-03-04 03:34 | Inpatient (IN) ==
[2024-03-04] MEDS: SODIUM CHLORIDE 0.9% 1,000 ML IV SCH (15:00)
--- NOTE | 2024-03-04 17:13 | Cardiology Consultation ---
Date of Consultation March 04, 2024 Assessment & Plan (1) CAD (coronary artery disease): Status post PCI with DAVINA to proximal LAD in-stent restenosis 2. Preserved LV function In-stent LAD disease appears to be largely acute today. Intravascular ultrasound showed predominantly thrombus and stent with no clear stent pathology or disease at proximal edge of stent. Unclear how much gradual restenosis of LAD stent contributing to recent exertional symptoms. With new stent an effort was made to more aggressively post dilate and different type of drug-eluting stent use for current procedure (Xience). Also recommend switching from clopidogrel to ticagrelor. Continue DAPT with aspirin, ticagrelor for at least 1 year Resume prior statin With preserved LV function can hold prior beta-holly. Self discontinued prior Imdur Monitor on telemetry overnight. If stable in a.m. likely discharge tomorrow with follow-up with Dr. Guzman follow-up and continued cardiac rehab History of Present Illness Attending Physician: Josefina Pedroza, History of Present Illness Mrs. Boothe is a very pleasant 73-year-old woman with a history of coronary artery disease post prior PCI with DAVINA to LAD 10/2023 readmitted last night with acute onset chest pain. Her primary facsimile machine operator is Dr. Guzman, last seen almost 2 weeks ago.. Post stent placement states she has never improved as much as she thought she would. She has participated with cardiac rehab, completed 15 sessions and states that with cardiac rehab feels well. However at home with walking up hills short of breath more recently having to stop to catch her breath. Also has had exertional chest sensation which is different than her prior angina. Was tried on oral nitrates, metoprolol. Did not tolerate nitrates due to headaches. Plan had been for further assessment with stress test. Last night while at rest developed acute chest burning pain with radiation to her arms and presented to ED. ECG unchanged x 2. Initial HS TropI minimally elevated at 51 and has since down trended. Telemetry unremarkable. Repeat echocardiogram showed preserved LV function. Due to acute change in symptoms, minimally elevated troponin underwent cardiac cath today which showed 95% acute proximal LAD stent restenosis. No other significant culprit disease. Treated with new overlapping single drug-eluting stent with good angiographic result. Allergies Allergy/AdvReac Type Severity Reaction Status Date / Time amoxicillin Allergy Rash Verified 02/22/24 08:56 Atorvastatin AdvReac Mild Headache Uncoded 02/22/24 08:46 Home Medications Medication Instructions Recorded Confirmed Type acyclovir 5 % topical ointment 1 appln topical UD PRN herpes 05/25/19 02/22/24 History labialis #1 g cholecalciferol (vitamin D3) 125 4,000 units PO QAM 05/25/19 02/22/24 History mcg (5,000 unit) tablet cyanocobalamin (vitamin B-12) 100 2,000 mcg PO QAM 05/25/19 02/22/24 History mcg tablet fluticasone propionate 50 2 sprays intranasal UD PRN nasal 05/25/19 02/22/24 History mcg/actuation nasal congestion spray,suspension hydrocortisone acetate 25 mg 25 mg MI UD PRN hemorrhoids #60 ea 05/25/19 02/22/24 History rectal suppository sodium chloride 0.65 % nasal spray 1 sprays intranasal UD PRN dry 05/25/19 02/22/24 History aerosol nasal passages Lactobacillus acidophilus 10 10,000 mmu cells PO DAILY 12/05/20 02/22/24 History billion cell capsule (Probiotic) acetaminophen 500 mg tablet 1,000 mg PO UD PRN Pain 12/05/20 02/22/24 History (Tylenol Extra Strength) elderberry fruit 200 mg capsule 200 mg PO DAILY 12/05/20 02/22/24 History multivitamin 1 cap PO DAILY 12/05/20 02/22/24 History diclofenac sodium 1 % topical gel 4 g topical UD PRN Pain 01/17/22 02/22/24 History meclizine 25 mg chewable tablet 25 mg PO UD PRN Vertigo 01/17/22 02/22/24 History alprazolam 0.5 mg tablet 0.5 mg PO BID PRN tinnitus #15 tabs 03/31/22 02/22/24 Rx valacyclovir 1 gram tablet 1,000 mg PO DAILY PRN Cold Sores 04/28/22 02/22/24 Rx #30 tabs clindamycin phosphate 1 % lotion 1 applic topical BID to axilla #60 10/06/22 02/22/24 Rx mL albuterol sulfate 90 mcg/actuation 2 puff inhalation Q6H PRN SHORT OF 05/25/23 02/22/24 Rx aerosol inhaler BREATH #8.5 grams lorazepam 0.5 mg tablet 0.5 - 1 mg (1 - 2 x 0.5 mg) PO HS 08/06/23 02/22/24 Rx PRN vertigo #60 tabs aspirin 81 mg tablet,delayed 81 mg PO DAILY 10/29/23 02/22/24 History release budesonide-formoterol HFA 80 2 puff inhalation BID PRN Other 10/29/23 02/22/24 History mcg-4.5 mcg/actuation aerosol inhaler (Symbicort) montelukast 10 mg tablet 10 mg PO HS asthma #90 tabs 10/30/23 02/22/24 Rx pantoprazole 40 mg tablet,delayed See Rx Instructions .Route .COMPLEX 11/19/23 02/22/24 History release sucralfate 100 mg/mL oral 10 ml PO QID PRN reflux #400 mL 11/19/23 02/22/24 Rx suspension clopidogrel 75 mg tablet 75 mg PO QAM #90 tabs 11/20/23 02/22/24 Rx rosuvastatin 20 mg tablet (Crestor) 20 mg PO QAM #90 tabs 11/20/23 02/22/24 Rx estradiol-norethindrone acet 1 1 tab PO .QOD 12/25/23 02/22/24 History mg-0.5 mg tablet (Mimvey) blood pressure monitor #1 ea 01/25/24 02/22/24 Rx isosorbide mononitrate 30 mg 30 mg PO DAILY #30 tabs 02/22/24 02/22/24 Rx tablet,extended release 24 hr Patient History Medical History NSTEMI (non-ST elevated myocardial infarction) Vertigo Lumbar radiculopathy Degenerative disc disease Hx of basal cell carcinoma Chronic back pain GERD (gastroesophageal reflux disease) Scoliosis Osteoarthritis Actinic keratosis Cerebral arterial aneurysm Mammogram abnormal Osteopenia Surgical History History of hysteroscopy S/P aneurysm repair Difficult airway for intubation History of esophagogastroduodenoscopy (EGD) (06/2019) Family history of reaction to anesthesia History of breast biopsy Lumbar spine tumor History of colonoscopy (06/2013) History of rhinoplasty History of tonsillectomy History of section Family History Father Colorectal cancer Mother Myocardial infarction Heart disease Cerebral aneurysm Grandmother (Maternal) Breast cancer Denies family history of Ovarian cancer Prostate cancer Social History Smoking Status: Never smoker Second Hand Exposure: No; Do You Dip or Chew Tobacco: No; Tobacco Cessation Education Requested by Patient: No Hx Alcohol Use: No Hx Substance Use: No Preferred Language: Cantonese Welsh Communication Ability: Effective Visual Impairment: No Limitations Hearing Ability: Normal [employer] Required: No Beliefs That Will Affect Care: None marital status: Current Living Situation: Spouse current occupational status: retired current occupation: Retired How many Children do You have: 1 Other Information That Helps Us Care for You: No Feels Safe at Home: Yes Safety Concerns: Feels Safe At This Time Childhood Exposure to Second-Hand Smoke: Yes Diet: regular caffeine: Yes during the past year weight has: increased > 10 lbs Dental Care, Regularly: Yes Physical Activity Frequency: Daily Seatbelt Use: always Sunscreen Use: Yes Assistive Devices: None Review of Systems Review of Systems: All systems reviewed & are unremarkable except as noted in HPI & below Physical Exam Physical Exam: General: Comfortable HEENT: Sclerae anicteric Lungs: Clear to auscultation bilaterally, no crackles or wheezes Cardiac: Regular rate and rhythm, no murmurs. Vascular: TR band in place Abdomen: Soft, nontender Extremities: Well perfused, no peripheral edema Neuro: Nonfocal Psych: Alert orient x3, normal affect and mood PG Care Time/CCT Total # of Minutes Spent Total Time Spent with Patient: Total time spent is greater than 50% in coordination of care (as documented) at patient's floor/unit and/or counseling patient: Coding Level of Care Code 57178 INT INP/OBS CARE MIN Diagnoses CAD (coronary artery disease) I25.10
[2024-03-04 17:28] LABS: Albumin Level 4.3 gm/dl (3.4-5.0); BUN Creatinine Ratio 19.5 (10-20); Bilirubin,Total 0.3 mg/dl (0.2-1.0); Calcium 9.9 mg/dl (8.6-10.3); Creatinine Clr Calc Pharmacy 61.5 ml/min; Est GFR (Non-African American) 77.7 ml/min; Potassium 3.9 mmol/L (3.5-5.1); Total Protein 6.9 gm/dl (6.0-8.3)
[2024-03-04 17:30] LABS: Troponin I High Sensitivity 13.9 pg/ml (0-14)
[2024-03-04] MEDS ORDERED: ONDANSETRON INJ 2 MG/ML 2 ML VIAL IV PRN (21:00)
[2024-03-04 21:19] LABS: Basophils # (auto) 0.04 K/uL (0.00-0.20); Basophils % (auto) 0.6 %; Eosinophils # (auto) 0.19 K/uL (0.00-0.50); Eosinophils % (auto) 2.8 %; Hematocrit (blood only) 39.9 % (37.0-47.0); Hemoglobin 13.5 g/dl (12.0-16.0); Immature Granulocytes # (auto) 0.02 K/uL (0.01-0.20); Immature Granulocytes % (auto) 0.3 %; Lymphocytes # (auto) 3.41 K/uL (1.20-3.40); Lymphocytes % (auto) 49.7 %; Mean Corpuscular Hemoglobin 29.5 pg (25.0-34.0); Mean Corpuscular Hgb Conc 33.8 g/dL (32.0-36.0); Mean Corpuscular Volume 87.1 fL (80.0-100.0); Mean Platelet Volume 9.4 fL (9.4-12.4); Monocytes # (auto) 0.58 K/uL (0.11-0.59); Monocytes % (auto) 8.5 %; Neutrophils # (auto) 2.62 K/uL (1.40-6.50); Neutrophils % (auto) 38.1 %; Platelet Count 193 K/uL (130-400); RDW Coefficient of Variation 13.1 % (11.5-14.5); RDW Standard Deviation 41.2 fL (36.4-46.3); Red Blood Count 4.58 M/uL (4.20-5.40); White Blood Count 6.86 K/ul (4.8-10.8)
[2024-03-04] MEDS ORDERED: MoRPHine SULFATE 2 MG/ML CARP IV PRN (21:32)
[2024-03-04] MEDS ORDERED: NITROGLYCERIN SL 0.4 MG/TAB TAB SL PRN (21:33)
[2024-03-04] MEDS: ACETAMINOPHEN 325 MG TAB PO PRN (21:46)
[2024-03-04] MEDS: ACETAMINOPHEN 500 MG TAB ONE (21:49)
--- NOTE | 2024-03-04 22:44 | Emergency Department Note ---
Impression & Plan Substernal chest pain ED Provider Note Name: YANCY KIM Age: 73 Sex: Female Arrives Via: Ambulance Informant: Patient ED Provider: Rudy Mills MD Chief Complaint: Chest Pain Impression: As per impressions above Medical Decision Making: Pleasant 73-year-old female with a history of WV 4 months ago with stenting. On and off vague chest pain since then with difficulty controlling. This evening of severe worsening of pain radiating down left arm. She arrives with pain having improved. She is anxious but otherwise in minimal distress. Initial EKG, troponin, labs, chest x-ray are unremarkable fortunately. Given her significant history and this episodes degree of symptoms clearly will need further workup and cardiac rule out. Will hold off on heparinization at this time and defer to hospitalist. Patient stable throughout and comfortable with plan for bringing in for further evaluation. Given patient's history I do not feel this is consistent with dissection, PE. There is no evidence of infectious etiology. Labs and EKG are not consistent with myocarditis. While history of reflux she notes no improvement with Tums. No abdominal tenderness palpation or concerns for intra-abdominal source of pathology. Triage/Nursing Notes reviewed by Me External Chart Review by me: Unable to review given patient was seen during global computer outage. Differential:Cardiac ischemia, aortic dissection, pulmonary embolism, pneumothorax, pneumonia, pericarditis, myocarditis, esophageal rupture, GERD, cholecystitis, pancreatitis, musculoskeletal, as well as other pathologies. Vital Signs: reviewed and remarkable for no significant abnormalities Labs:ED labs Reviewed by me and remarkable for no significant abnormalities Imaging:X ray results are stated below per my interpretation: Chest: 1 view: No infiltrate, no effusion, normal cardiac border. EKG:As per my interpretation. Indication chest pain. Normal sinus rhythm at 65 bpm no QTc prolongation at 426. No ectopy nor ischemia. Compared EKG of November 01, 2023 there is no significant change. Cardiac/Tele Monitoring: Cardiac Monitoring: An Order was placed for continuous cardiac monitoring. The monitor shows a rate of 60 with a normal sinus rhythm. Consults:Dr Roseanne NORIEGA Hospitalist - agrees to evaluate for hospitalization. Plan: Disposition:Hospitalization. Condition: Good History of Present Illness: 74 year-old female. Arrives for evaluation of chest pain severe starting about one hour prior to arrival. Patient admits mild sub chest discomfort throughout the day yesterday. Did go out to dinner without much issue had some red wine. As pain got worse this evening she did take multiple Tums. Any improvement. Patient states pain was severe substernal burning, radiating all the way down her left arm. Associated with a headache though shes been having a headache for about a week and a half after having been on MO. States she has had some issues on and off for the last few months with chest pains for what she was on him the last eight days but due to headache stopped taking it. Patient had had an LED stenosis in October 2023. Since then she knows shes had some issues on and off. Shes been on metoprolol due to leg swelling. Had to stop it. Since then, she has been on Plavix, aspirin and Crestor. Currently symptoms are essentially resolved. Patient did receive aspirin three 24 mg by EMS. She states symptoms are very similar to what she experienced in October when she had her W[place]. Patient has not had any cardiac work up since her heart attack but does have a stress test planned for next month. Past Medical History:CAD, Ashtma, GERD, Anxiety, Migraines amongst others Home Medications:Aspirin, Plavix, Crestor Allergies:Metoprolol, amoxicillin Vitals:Blood Pressure: 148/81, Pulse 66, RR 16, T 36.6C, O2 96% on RA Physical Exam: GENERAL: Patient is anxious appearing and in minimal distress. RESPIRATORY: No dyspnea. Clear to auscultation and equal bilaterally. CARDIOVASCULAR: Regular rate and rhythm.No murmur appreciated. EXTREMITIES: Normal motion all extremities, no cyanosis, no edema. NEUROLOGIC: Alert and oriented. No focal neurologic deficits appreciated SKIN: No rash, no jaundice, no diaphoresis. PSYCH: Appropriate GCS: 15 ED Course: Times/Reassessments: multiple repeat evaluations. Chest pain returning as hospitalist evaluating patient and they are aware Downtime: Due to a global computer failure this patient was seen, evaluated and managed during an unplanned downtime and thus delay to completion of charting. Rudy Mills MD Past Med/Surg History Problem List (Updated 03/04/24 @ 22:43 by Rudy Mills MD) Substernal chest pain (Acute) Dyspnea on exertion Bruising Fatigue Asymptomatic microscopic hematuria S/P coronary artery stent placement Palpitations Atypical chest pain CAD (coronary artery disease) Positive antinuclear antibody Vulvar dermatitis Allergic rhinitis with postnasal drip Asthma SINGULAR CONTROLS AND PRN inhaler, uses < once month, only triggered by allergens Anxiety GERD (gastroesophageal reflux disease) Tinnitus of both ears Vertebrobasilar artery insufficiency (Chronic) TMJ syndrome (Chronic) Sleep disturbance (Chronic) Insomnia (Chronic) Herpes labialis (Chronic) Food intolerance in adult (Chronic) Elevated BP without diagnosis of hypertension (Chronic) Classic migraine with aura (Chronic) Aneurysm of right internal carotid artery (Chronic) Post-menopausal bleeding Postmenopausal hormone replacement therapy Family history of colon cancer in father Arthralgia Migraine Medical History NSTEMI (non-ST elevated myocardial infarction) Vertigo Lumbar radiculopathy Degenerative disc disease Hx of basal cell carcinoma Chronic back pain GERD (gastroesophageal reflux disease) Scoliosis Osteoarthritis Actinic keratosis Cerebral arterial aneurysm Mammogram abnormal Osteopenia Surgical History History of hysteroscopy S/P aneurysm repair Difficult airway for intubation History of esophagogastroduodenoscopy (EGD) (06/2019) Family history of reaction to anesthesia History of breast biopsy Lumbar spine tumor History of colonoscopy (06/2013) History of rhinoplasty History of tonsillectomy History of section Family History Father Colorectal cancer Mother Myocardial infarction Heart disease Cerebral aneurysm Grandmother (Maternal) Breast cancer Denies family history of Ovarian cancer Prostate cancer Social History Smoking Status: Never smoker Second Hand Exposure: No; Do You Dip or Chew Tobacco: No; Tobacco Cessation Education Requested by Patient: No Hx Alcohol Use: No Hx Substance Use: No Preferred Language: Cantonese English Communication Ability: Effective Visual Impairment: No Limitations Hearing Ability: Normal Wine Manager Required: No Beliefs That Will Affect Care: None marital status: Current Living Situation: Spouse current occupational status: retired current occupation: Retired How many Children do You have: 1 Other Information That Helps Us Care for You: No Feels Safe at Home: Yes Safety Concerns: Feels Safe At This Time Childhood Exposure to Second-Hand Smoke: Yes Diet: regular caffeine: Yes during the past year weight has: increased > 10 lbs Dental Care, Regularly: Yes Physical Activity Frequency: Daily Seatbelt Use: always Sunscreen Use: Yes Assistive Devices: None Allergies Allergies Allergy/AdvReac Type Severity Reaction Status Date / Time amoxicillin Allergy Rash Verified 02/22/24 08:56 Atorvastatin AdvReac Mild Headache Uncoded 02/22/24 08:46 Home Meds Home Medications Medication Instructions Recorded Confirmed acyclovir 5 % topical ointment 1 appln topical UD PRN herpes 05/25/19 02/22/24 labialis #1 g cholecalciferol (vitamin D3) 125 4,000 units PO QAM 05/25/19 02/22/24 mcg (5,000 unit) tablet cyanocobalamin (vitamin B-12) 100 2,000 mcg PO QAM 05/25/19 02/22/24 mcg tablet fluticasone propionate 50 2 sprays intranasal UD PRN nasal 05/25/19 02/22/24 mcg/actuation nasal congestion spray,suspension hydrocortisone acetate [address] UD PRN hemorrhoids #60 ea 05/25/19 02/22/24 rectal suppository sodium chloride 0.65 % nasal spray 1 sprays intranasal UD PRN dry 05/25/19 02/22/24 aerosol nasal passages Lactobacillus acidophilus 10 10,000 mmu cells PO DAILY 12/05/20 02/22/24 billion cell capsule (Probiotic) acetaminophen 500 mg tablet 1,000 mg PO UD PRN Pain 12/05/20 02/22/24 (Tylenol Extra Strength) elderberry fruit 200 mg capsule 200 mg PO DAILY 12/05/20 02/22/24 multivitamin 1 cap PO DAILY 12/05/20 02/22/24 diclofenac sodium 1 % topical gel 4 g topical UD PRN Pain 01/17/22 02/22/24 meclizine 25 mg chewable tablet 25 mg PO UD PRN Vertigo 01/17/22 02/22/24 aspirin 81 mg tablet,delayed 81 mg PO DAILY 10/29/23 02/22/24 release budesonide-formoterol HFA 80 2 puff inhalation BID PRN Other 10/29/23 02/22/24 mcg-4.5 mcg/actuation aerosol inhaler (Symbicort) pantoprazole 40 mg tablet,delayed See Rx Instructions .Route .COMPLEX 11/19/23 02/22/24 release estradiol-norethindrone acet 1 1 tab PO .QOD 12/25/23 02/22/24 mg-0.5 mg tablet (Mimvey) Previous Rx's Medication Instructions Recorded alprazolam 0.5 mg tablet 0.5 mg PO BID PRN tinnitus #15 tabs 03/31/22 valacyclovir 1 gram tablet 1,000 mg PO DAILY PRN Cold Sores 04/28/22 #30 tabs clindamycin phosphate 1 % lotion 1 applic topical BID to axilla #60 10/06/22 mL albuterol sulfate 90 mcg/actuation 2 puff inhalation Q6H PRN SHORT OF 05/25/23 aerosol inhaler BREATH #8.5 grams lorazepam 0.5 mg tablet 0.5 - 1 mg (1 - 2 x 0.5 mg) PO HS 08/06/23 PRN vertigo #60 tabs montelukast 10 mg tablet 10 mg PO HS asthma #90 tabs 10/30/23 sucralfate 100 mg/mL oral 10 ml PO QID PRN reflux #400 mL 11/19/23 suspension clopidogrel 75 mg tablet 75 mg PO QAM #90 tabs 11/20/23 rosuvastatin 20 mg tablet (Crestor) 20 mg PO QAM #90 tabs 11/20/23 blood pressure monitor #1 ea 01/25/24 isosorbide mononitrate 30 mg 30 mg PO DAILY #30 tabs 02/22/24 tablet,extended release 24 hr Results & Data (ED) Laboratory Data 03/04/24 02:25 03/04/24 01:45 Lab Results 03/04/24 03/04/24 03/04/24 Range/Units 01:45 02:25 09:30 WBC 6.86 (4.8-10.8) K/ul RBC 4.58 (4.20-5.40) M/uL Hgb 13.5 (12.0-16.0) g/dl Hct 39.9 (37.0-47.0) % MCV 87.1 (80.0-100.0) fL MCH 29.5 (25.0-34.0) pg MCHC 33.8 (32.0-36.0) g/dL RDW Std Deviation 41.2 (36.4-46.3) fL RDW Coeff of Sheela 13.1 (11.5-14.5) % Plt Count 193 (130-400) K/uL MPV 9.4 (9.4-12.4) fL Immature Gran % (Auto) 0.3 % Neut % (Auto) 38.1 % Lymph % (Auto) 49.7 % Archuleta % (Auto) 8.5 % Eos % (Auto) 2.8 % Baso % (Auto) 0.6 % Neut # (Auto) 2.62 (1.40-6.50) K/uL Lymph # (Auto) 3.41 H (1.20-3.40) K/uL Archuleta # (Auto) 0.58 (0.11-0.59) K/uL Eos # (Auto) 0.19 (0.00-0.50) K/uL Baso # (Auto) 0.04 (0.00-0.20) K/uL Immature Gran # (Auto) 0.02 (0.01-0.20) K/uL Sodium 138 (136-145) mmol/L Potassium 3.9 (3.5-5.1) mmol/L Chloride 102 (98-107) mmol/L Carbon Dioxide 26 (21-32) mmol/L Anion Gap 10 (3-11) BUN 15 (6-23) mg/dl Creatinine 0.77 (0.6-1.2) mg/dl Est Cr Clr Drug Dosing 61.5 ml/min Est GFR ( Amer) 90.0 ml/min Est GFR (Non-Af Amer) 77.7 ml/min BUN/Creatinine Ratio 19.5 (10-20) Glucose 95 (70-99(Fasting)) mg/dl Calcium 9.9 (8.6-10.3) mg/dl Total Bilirubin 0.3 (0.2-1.0) mg/dl Direct Bilirubin 0.0 (0-0.2) mg/dl AST 21 (13-39) U/L ALT 15 (7-52) U/L Alkaline Phosphatase 47 (34-104) U/L Troponin I High Sens 13.9 28.6 H D (0-14) pg/ml Total Protein 6.9 (6.0-8.3) gm/dl Albumin 4.3 (3.4-5.0) gm/dl Lipase 27 (11-82) U/L Administered Medications Acetaminophen (Acetaminophen 325 Mg Tab) 650 mg PO Q4H PRN PRN Reason: FEVER/PAIN Stop: 04/03/24 21:31 Last Admin: 03/04/24 21:46 Dose: 650 mg Documented By: LINDA Sodium Chloride (Nss) 1,000 mls @ 100 mls/hr IV .Q10H FREEMAN Stop: 03/05/24 04:29 Last Admin: 03/04/24 15:00 Dose: 100 mls/hr Documented By: LINDA Discontinued Medications Acetaminophen (Acetaminophen 500 Mg Tab) Confirm Administered Dose 1,000 mg .ROUTE .STK-MED ONE Stop: 03/04/24 08:33 Last Admin: 03/04/24 21:49 Dose: Not Given Documented By: LINDA Discharge Plan Visit Data ED Provider: KALEED Discharge Problem: Substernal chest pain Patient Disposition: Admitted As Inpatient
[2024-03-05 05:37] LABS: Basophils # (auto) 0.02 K/uL (0.00-0.20); Basophils % (auto) 0.3 %; Eosinophils # (auto) 0.18 K/uL (0.00-0.50); Eosinophils % (auto) 2.7 %; Hematocrit (blood only) 39.4 % (37.0-47.0); Hemoglobin 13.2 g/dl (12.0-16.0); Immature Granulocytes # (auto) 0.02 K/uL (0.01-0.20); Immature Granulocytes % (auto) 0.3 %; Lymphocytes # (auto) 2.11 K/uL (1.20-3.40); Lymphocytes % (auto) 31.2 %; Mean Corpuscular Hemoglobin 29.3 pg (25.0-34.0); Mean Corpuscular Hgb Conc 33.5 g/dL (32.0-36.0); Mean Corpuscular Volume 87.6 fL (80.0-100.0); Mean Platelet Volume 9.1 fL (9.4-12.4); Monocytes # (auto) 0.58 K/uL (0.11-0.59); Monocytes % (auto) 8.6 %; Neutrophils # (auto) 3.85 K/uL (1.40-6.50); Neutrophils % (auto) 56.9 %; Platelet Count 156 K/uL (130-400); RDW Coefficient of Variation 13.3 % (11.5-14.5); RDW Standard Deviation 43.1 fL (36.4-46.3); White Blood Count 6.76 K/ul (4.8-10.8)
[2024-03-05 05:52] LABS: Albumin Globulin Ratio 1.9 (0.9-2); Albumin Level 4.1 gm/dl (3.4-5.0); BUN Creatinine Ratio 22.2 (10-20); Bilirubin,Total 0.5 mg/dl (0.2-1.0); Calcium 8.8 mg/dl (8.6-10.3); Creatinine Clr Calc Pharmacy 75.2 ml/min; Est GFR (African American) 104.6 ml/min; Est GFR (Non-African American) 90.2 ml/min; Globulin 2.2 gm/dl (2.5-4.0); Potassium 4.2 mmol/L (3.5-5.1); Total Protein 6.3 gm/dl (6.0-8.3)
--- NOTE | 2024-03-05 06:55 | Hospitalist Progress Note ---
Date of Service March 05, 2024 Assessment & Plan (1) Substernal chest pain: (2) S/P coronary artery stent placement: Plan #Chest pain #s/p heart cath Admission and Anticipated Discharge Date Admission Date: March 04, 2024 Subjective Pt is a [] yo [] with a past medical history of [] who presents to the hospital on [] for []. Review of Systems Review of Systems: Constitutional: denies fever, chills, [] HEENT: denies congestion, sore throat Cardio: denies chest pain, palpitations Resp: denies shortness of breath, cough GI: denies abdominal pain, nausea, vomiting, constipation, diarrhea : denies pain with urination, change in urinary frequency Neuro: denies new numbness, tingling, weakness Physical Exam Physical Exam: General:Alert and oriented, no acute distress, [] HEENT: Normocephalic, moist oral mucosa, Cardio: Regular rate and rhythm, no murmur, Resp:Lungs clear to auscultation b/l, no wheezes or rhonchi, GI: Soft and nontender, nondistended, bowel sounds active Skin: Warm, pink, dry, Psych: Mood-affect congruence. Results & Data Results & Data Vital Signs (Past 12 Hours) Vital Signs Temp Pulse Pulse Resp BP BP Pulse Ox 03/05/24 06:45 62 15 123/72 96 03/05/24 06:30 66 18 121/78 96 03/05/24 06:15 118/75 03/05/24 06:04 127/74 03/05/24 06:00 63 15 96 03/05/24 05:45 67 18 117/66 96 03/05/24 05:30 68 15 106/74 94 03/05/24 05:00 71 20 93/47 L 96 03/05/24 05:00 93/47 L 03/05/24 05:00 75 14 96 03/05/24 04:30 70 15 99/56 L 96 03/05/24 04:15 111/58 L 03/05/24 04:07 125/58 L 03/05/24 04:00 69 16 111/58 L 96 03/05/24 03:45 109/63 03/05/24 03:30 66 23 118/70 97 03/05/24 03:00 69 20 101/78 96 07/20/24 02:45 67 15 122/73 96 03/05/24 02:30 112/71 03/05/24 02:00 105/66 03/05/24 01:57 66 17 96 03/05/24 01:45 67 14 112/64 96 03/05/24 01:45 68 17 112/64 95 03/05/24 01:30 110/68 95 03/05/24 01:30 68 15 110/68 95 03/05/24 01:00 130/73 03/05/24 01:00 68 17 95 03/05/24 00:45 73 18 119/70 96 03/05/24 00:30 72 18 113/67 95 03/05/24 00:16 75 20 128/75 96 03/05/24 00:00 68 121/64 96 03/05/24 00:00 36.6 C 75 96 03/05/24 00:00 80 03/04/24 23:45 78 16 120/66 96 03/04/24 23:30 78 16 108/67 96 03/04/24 23:30 80 16 96 03/04/24 23:15 131/58 L 03/04/24 23:00 118/62 96 03/04/24 23:00 78 96 03/04/24 22:30 118/63 97 03/04/24 22:15 134/80 03/04/24 22:15 76 19 97 03/04/24 22:12 72 24 97 03/04/24 22:00 36.6 C 78 16 96 03/04/24 21:45 130/73 03/04/24 21:30 126/75 97 03/04/24 21:15 132/75 98 03/04/24 21:15 65 18 97 03/04/24 21:09 65 20 96 03/04/24 21:00 120/73 03/04/24 21:00 78 03/04/24 20:54 67 19 96 03/04/24 20:42 67 18 97 03/04/24 20:36 70 20 97 03/04/24 20:30 145/77 H 03/04/24 20:06 65 15 97 03/04/24 20:00 63 24 96 03/04/24 20:00 135/80 03/04/24 20:00 03/04/24 20:00 79 96 03/04/24 20:00 36.6 C 66 16 148/81 H 96 03/04/24 19:39 66 20 97 03/04/24 19:30 135/76 03/04/24 19:15 139/76 03/04/24 19:00 36.6 C O2 Del Method 03/05/24 06:45 Room Air 03/05/24 06:30 Room Air 03/05/24 06:15 03/05/24 06:04 03/05/24 06:00 Room Air 03/05/24 05:45 Room Air 03/05/24 05:30 Room Air 03/05/24 05:00 Room Air 03/05/24 05:00 03/05/24 05:00 Room Air 03/05/24 04:30 Room Air 03/05/24 04:15 03/05/24 04:07 03/05/24 04:00 Room Air 03/05/24 03:45 03/05/24 03:30 Room Air 03/05/24 03:00 Room Air 03/05/24 02:45 Room Air 03/05/24 02:30 03/05/24 02:00 03/05/24 01:57 Room Air 03/05/24 01:45 Room Air 03/05/24 01:45 Room Air 03/05/24 01:30 Room Air 03/05/24 01:30 Room Air 03/05/24 01:00 03/05/24 01:00 Room Air 03/05/24 00:45 Room Air 03/05/24 00:30 Room Air 03/05/24 00:16 Room Air 03/05/24 00:00 Room Air 03/05/24 00:00 Room Air 03/05/24 00:00 03/04/24 23:45 Room Air 03/04/24 23:30 Room Air 03/04/24 23:30 Room Air 03/04/24 23:15 03/04/24 23:00 Room Air 03/04/24 23:00 Room Air 03/04/24 22:30 Room Air 03/04/24 22:15 03/04/24 22:15 Room Air 03/04/24 22:12 03/04/24 22:00 Room Air 03/04/24 21:45 03/04/24 21:30 Room Air 03/04/24 21:15 Room Air 03/04/24 21:15 03/04/24 21:09 Room Air 03/04/24 21:00 03/04/24 21:00 03/04/24 20:54 Room Air 03/04/24 20:42 03/04/24 20:36 Room Air 03/04/24 20:30 03/04/24 20:06 03/04/24 20:00 Room Air 03/04/24 20:00 03/04/24 20:00 Room Air 03/04/24 20:00 Room Air 03/04/24 20:00 Room Air 03/04/24 19:39 Room Air 03/04/24 19:30 03/04/24 19:15 03/04/24 19:00
[2024-03-05] MEDS: ROSUVASTATIN CALCIUM 20 MG TAB PO SCH (07:38)
[2024-03-05] MEDS: ASPIRIN 81 MG ECTAB PO SCH (07:39)
[2024-03-05] MEDS: TICAGRELOR 90 MG TAB PO SCH (07:39)
[2024-03-05] MEDS ORDERED: PANTOprazole 40 MG in SYRINGE BID IV SCH (09:00)
[2024-03-05] MEDS: PANTOprazole 40 MG TAB PO SCH (11:14)
--- NOTE | 2024-03-05 12:47 | Cardiology Progress Note ---
Date of Service March 05, 2024 Assessment & Plan (1) CAD (coronary artery disease): Plan: Status post PCI with DAVINA to proximal LAD in-stent restenosis 2. Preserved LV function No recurrent chest pain. Hemodynamically and electrically stable. No access site complications. From a cardiac standpoint Ok with discharge today. Home on DAPT with aspirin, ticagrelor for at least 1 year Continue prior statin With preserved LV function can stop prior beta-holly. Imdur discontinued. follow-up with Dr. Guzman in 2-3 weeks. Admission and Anticipated Discharge Date Admission Date: March 04, 2024 Subjective Feeling well this morning. No chest pain. "Feeling" in her chest is better, unlike after prior PCI. Has had persistent headache which she states has been present since starting oral nitrates weeks ago. Tele reviewed - no events. Review of Systems Review of Systems: All systems reviewed & are unremarkable except as noted in HPI & below Physical Exam Physical Exam: General: Comfortable HEENT: Sclerae anicteric Lungs: Clear to auscultation bilaterally Cardiac: Regular rate and rhythm, no murmurs. Vascular: 2+ radial. no hematoma. intact distal sensation/cap refill Abdomen: Soft, nontender Extremities: Well perfused, no peripheral edema Neuro: Nonfocal Psych: Alert orient x3, normal affect and mood Results & Data Vital Signs (Past 12 Hours) Vital Signs Temp Pulse Pulse Resp BP BP Pulse Ox 03/05/24 11:00 98.2 F 70 16 105/59 L 96 03/05/24 08:00 03/05/24 08:00 62 03/05/24 07:00 98.2 F 68 20 123/68 96 03/05/24 06:45 62 15 123/72 96 03/05/24 06:30 66 18 121/78 96 03/05/24 06:15 118/75 03/05/24 06:04 127/74 03/05/24 06:00 63 15 96 03/05/24 05:45 67 18 117/66 96 03/05/24 05:30 68 15 106/74 94 03/05/24 05:00 71 20 93/47 L 96 03/05/24 05:00 93/47 L 03/05/24 05:00 75 14 96 03/05/24 04:30 70 15 99/56 L 96 03/05/24 04:15 111/58 L 03/05/24 04:07 125/58 L 03/05/24 04:00 69 16 111/58 L 96 03/05/24 03:45 109/63 03/05/24 03:30 66 23 118/70 97 03/05/24 03:00 69 20 101/78 96 03/05/24 02:45 67 15 122/73 96 03/05/24 02:30 112/71 03/05/24 02:00 105/66 03/05/24 01:57 66 17 96 03/05/24 01:45 67 14 112/64 96 03/05/24 01:45 68 17 112/64 95 03/05/24 01:30 110/68 95 03/05/24 01:30 68 15 110/68 95 03/05/24 01:00 130/73 03/05/24 01:00 68 17 95 03/05/24 00:45 73 18 119/70 96 O2 Del Method 03/05/24 11:00 Room Air 03/05/24 08:00 Room Air 03/05/24 08:00 03/05/24 07:00 Room Air 03/05/24 06:45 Room Air 03/05/24 06:30 Room Air 03/05/24 06:15 03/05/24 06:04 03/05/24 06:00 Room Air 03/05/24 05:45 Room Air 03/05/24 05:30 Room Air 03/05/24 05:00 Room Air 03/05/24 05:00 03/05/24 05:00 Room Air 03/05/24 04:30 Room Air 03/05/24 04:15 03/05/24 04:07 03/05/24 04:00 Room Air 03/05/24 03:45 03/05/24 03:30 Room Air 03/05/24 03:00 Room Air 03/05/24 02:45 Room Air 03/05/24 02:30 03/05/24 02:00 03/05/24 01:57 Room Air 03/05/24 01:45 Room Air 03/05/24 01:45 Room Air 03/05/24 01:30 Room Air 03/05/24 01:30 Room Air 03/05/24 01:00 03/05/24 01:00 Room Air 03/05/24 00:45 Room Air PG Care Time/CCT Total # of Minutes Spent Total Time Spent with Patient: Total time spent is greater than 50% in coordination of care (as documented) at patient's floor/unit and/or counseling patient: Coding Level of Care Code 65313 SUB INP/OBS CARE 3/50MIN Diagnoses CAD (coronary artery disease) I25.10
--- NOTE | 2024-03-05 14:49 | Discharge Summary ---
Date of Service March 05, 2024 Admission HPI Per Admitting Provider N/A due to global outage on 03/04/2024. Please see paper chart for admission HPI and exam. Admission Exam Per Admitting Provider N/A due to global outage on 03/04/2024. Please see paper chart for admission HPI and exam. Principal Diagnosis CAD with restenosis Discharge Exam General:Alert and oriented, no acute distress, HEENT: Normocephalic, moist oral mucosa, Cardio: Regular rate and rhythm, no murmur, Resp:Lungs clear to auscultation b/l, no wheezes or rhonchi, Skin: Warm, pink, dry, MSK: cervical paraspinal musculature hypertonicity noted, left worse than right, improved some with suboccipital release technique Discharge Data Allergies Allergy/AdvReac Type Severity Reaction Status Date / Time amoxicillin Allergy Rash Verified 02/22/24 08:56 Atorvastatin AdvReac Mild Headache Uncoded 02/22/24 08:46 Ordered Studies 03/05/24 12:00 CT head/brain wo con Routine Hospital Course (1) Substernal chest pain: (2) S/P coronary artery stent placement: Plan Pt is a 73 yo female with a past med hx most significant for CAD with hx PCI of proximal to mid LAD with single drug-eluting stent placement 10/2023 who presented to the hospital for chest pain, underwent cath procedure 03/04 and found to have restenosis. #CAD #S/p heart cath - heart cath done yesterday 03/04 and noted to have 95% stenosis of previous stent, single drug-eluting stent overlapping prior stent placed by Dr. Dale - pt feels well today, chest pain has resolved - cardiology consulted; ok for dscharge today with plan for aspirin + ticagrelor for 1 yr as pt failed aspirin + plavix previously, to f/u with cards in 2-3 weeks, continue statin #Headache - pt notes headache for the past 10 days, was taking imdur but stopped 2-3 days ago to see if that would resolve the headache but headache is still present - headache is not relieved with tylenol and pt states she cannot take ibuprofen due to hx brain anneurysm - based on my physical assessment and pt's description, headache is most consistent with tension headache and did perform gentle OMT with moderate relief of symptoms - can continue Tylenol and heating pad or topical pain relief over paraspinal muscles - CT head done as family and pt requested with her hx of aneurysm; wnl Total Time Total Time Spent Total Time Spent (In Minutes): As per attending attestation. Discharge Plan Discharge Items Patient Disposition: Home - Self-Care Reason For Visit: CHEST PAIN Discharge Diagnosis: Coronary artery disease with restenosis of prior stent Activity: As commented below Activity Comment: Activity as tolerated. Non-emergency contact: Primary Care Provider Call non-emergency contact if: you have any medication questions, your symptoms worsen, your temperature is above 101, your wound has increased redness and your wound has increased drainage Follow-up/Referrals: Crystal Willett MD [Primary Care Provider] - 03/09/24 11:00 am Diet: Regular Addtl Attending Provider Instructions: You were admitted to the hospital for chest pain and through a cardiac catheterization procedure found to have re-stenosis of your prior heart stent placed in October of this year. Cardiology Dr. Dale saw you this morning and thinks that with the new stent placed to reopen that artery, you are okay to go home with plan to follow-up with cardiology Dr. Guzman in 2-3 weeks. Your recommended heart regime post stent placement is as follows: * Aspirin 81 mg daily * Brilinta (ticagrelor) 90 mg twice daily (this will take the place of the plavix/clopidogrel you were previously taking) * Rosuvastatin 20 mg daily We have sent your Brilinta to your pharmacy and your next dose will be tonight at 8 or 9 pm (whichever is more convenient for you) then will be twice daily (once in the morning and once at night) every day starting tomorrow. You should call your towing pilot Dr. Guzman on Thursday to make a follow-up with him for 2-3 weeks from now. You should also call your primary care doctor on Thursday and let them know you have been at the hospital and that you should follow up with them early/middle of this upcoming week to update them on your health. You were noted to have a headache while you were here and prior to coming in. Certainly, medications such as imdur (the isosorbide mononitrate) can and is known to cause headaches and may explain the start of the headaches. We believe that the lingering headache is most likely a tension headache as your neck muscles are very tight and often it is started or worsened by stress. You can continue to take tylenol as 1000 mg (2 of the 500 mg tablets at once) up to 3 times daily (about every 8 hours) and heat and gentle massage of the neck muscles should continue to improve this. We did a head CT scan to ensure nothing else is going on and it was normal. Pending Studies at Discharge: No Stand-Alone Forms: [facility], Smoking Cessation Medications and DC Order Prescriptions: New Brilinta 90 mg Tablet 90 mg PO BID 30 Days Qty: 60 1RF Continued valacyclovir 1 gram tablet 1,000 mg PO DAILY PRN (Reason: Cold Sores) Qty: 30 0RF Rx Instructions: Take 5 days before procedure. clindamycin phosphate 1 % lotion 1 applic topical BID Qty: 60 3RF montelukast 10 mg tablet 10 mg PO HS Qty: 90 1RF (DME) blood pressure monitor Kit See Rx Instructions .Route Qty: 1 0RF Rx Instructions: As directed I25.10 acyclovir 5 % ointment 1 appln topical UD PRN (Reason: herpes labialis) Qty: 1 fluticasone propionate 50 mcg/actuation spray,suspension 2 sprays intranasal UD PRN (Reason: nasal congestion) sodium chloride 0.65 % aerosol,spray 1 sprays intranasal UD PRN (Reason: dry nasal passages) cholecalciferol (vitamin D3) 5,000 unit tablet 4,000 units PO QAM cyanocobalamin (vitamin B-12) 100 mcg tablet 2,000 mcg PO QAM hydrocortisone acetate 25 mg suppository 25 mg AK UD PRN (Reason: hemorrhoids) Qty: 60 albuterol sulfate 90 mcg/actuation HFA aerosol inhaler 2 puff inhalation Q6H PRN (Reason: SHORT OF BREATH) Qty: 8.5 5RF pantoprazole 40 mg tablet,delayed release (DR/EC) See Rx Instructions .ROUTE .COMPLEX Dose Instruction: TAKE 1 TABLET BY MOUTH EVERY DAY Rx Instructions: TAKE 1 TABLET BY MOUTH BID sucralfate 100 mg/mL suspension 10 ml PO QID PRN (Reason: reflux) Qty: 400 2RF Rx Instructions: swish in mouth and swallow; use after food/drink alprazolam 0.5 mg tablet 0.5 mg PO BID PRN (Reason: tinnitus) Qty: 15 0RF budesonide-formoterol [Symbicort] 80-4.5 mcg/actuation HFA aerosol inhaler 2 puff inhalation BID PRN (Reason: Other) aspirin 81 mg tablet,delayed release (DR/EC) 81 mg PO DAILY lorazepam 0.5 mg tablet 0.5 - 1 mg PO HS PRN (Reason: vertigo) Qty: 60 0RF rosuvastatin [Crestor] 20 mg tablet 20 mg PO QAM Qty: 90 3RF estradiol-norethindrone acet [Mimvey] 1-0.5 mg tablet 1 tab PO .QOD multivitamin Capsule 1 cap PO DAILY elderberry fruit 200 mg Capsule 200 mg PO DAILY Probiotic 10 billion cell Capsule 10,000 mmu cells PO DAILY acetaminophen [Tylenol Extra Strength] 500 mg Tablet 1,000 mg PO UD PRN (Reason: Pain) meclizine 25 mg tablet,chewable 25 mg PO UD PRN (Reason: Vertigo) Rx Instructions: BRAND ONLY diclofenac sodium 1 % gel 4 g topical UD PRN (Reason: Pain) Rx Instructions: apply to single knee, ankle, foot; for foot includes sole/toes/top of foot Discontinued isosorbide mononitrate 30 mg tablet extended release 24 hr 30 mg PO DAILY Qty: 30 5RF clopidogrel 75 mg tablet 75 mg PO QAM Qty: 90 3RF Discharge Orders: Discharge Order (Routine); Ordered 03/05/24 Ordered By: Vinnie Eubanks/Other Patient Handouts: Coronary Stents, CAD, Cardiac Catheterization Dc Admission Data Admit Date/Time: 03/04/24 16:21 Attending Provider: Vinnie Charles Admit Provider: Josefina Pedroza Primary Care Provider: Crystal Willett Other Interventions: Discharge Summary Assessment (RN) Last Done: 03/05/24 15:47 Supervising Physician Co-Signing Physician Notes I personally examined the patient and verified all garcia points of history and exam, discussed case, and agree with decision making with Dr Bowman Main complaint remains headache. Dr. Bowman noted a temporary response to suboccipital OMT, and she also showed the same improvement from a whenever I did gentle suboccipital pressure. Patient and daughter very concerned that it relates to her remote history of cerebral aneurysm. Headache started with nitrates, and has persisted since. No further chest pain or burning. Vitals noted, in general she is awake and alert pleasant no distress. HEENT normoceph alic atraumatic mucous membranes moist. Osteopathic structural exam shows bilateral suboccipitals high tone, tender, decreased range of motioninhibitory pressureimproved CAD/angina - s/p stent. stable for home, DAPT headache - almost certainly was nitrate induced migraine -> subsequent tension headache (especially given response to OMT) - due to pt/dtr high fear about aneurysm got CT head - no bleed safe/stable for home otherwise as above Resident Activity Tracking Resident Involvement: Resident Care Provided Care Provided: Adult Hospital Medicine
--- NOTE | 2024-03-05 15:25 | CT Scan Report ---
CT head/brain wo con CLINICAL HISTORY: headache, prior aneurysm, r/o bleed Technique: Contiguous axial CT images of the head were acquired from the base of the skull to the ian adri without intravenous contrast administration. Images were viewed in brain, subdural and [facility]. Automated dose lowering techniques and/or adjustment according to patient size were utilized for this exam. Comparison: Comparison is made to MRI brain 05/18/[address] temporal bones 11/14/2010 Findings: The ventricles, basal cisterns, and cerebral sulci are normal. There is no acute intracranial hemorrh age or evidence of acute territorial infarction. Neither mass effect, shift of the midline structures , nor abnormal extra-axial fluid collections are shown. Imaged portions of the paranasal sinuses and mastoid air cells are clear. The orbits appear normal. There are no acute fractures of the calvaria or scalp swelling. Impression: No acute abnormalities and in particular no evidence of intracranial hemorrhage. ACT 112: Negative or not required by law. Electronically signed by: Terrence Florian M.D. 03/05/2024 3:24 PM
--- NOTE | 2024-03-05 18:08 | Billing Data ---
Date of Service March 05, 2024 Coding Level of Care Code 37160 IN/OBS DISCH 30 MIN/LESS
--- NOTE | 2024-03-05 23:57 | History & Physical Report ---
Date of Service March 05, 2024 The patient was initially seen and examined on March 04, 2024. She was seen during time when there was an acute issue with downtime of computers, due to a global incident. Assessment & Plan (1) Substernal chest pain: (2) Dyspnea on exertion: (3) S/P coronary artery stent placement: (4) NSTEMI (non-ST elevated myocardial infarction): (5) CAD (coronary artery disease): (6) Asthma: (7) GERD (gastroesophageal reflux disease): Plan Substernal chest pain/shortness of breath/dyspnea on exertion/CAD/history of MO status post stent on 10-30-2023-- The patient will be admitted to telemetry for serial cardiac enzymes, serial EKG's, cardiac rhythm monitoring and a 2-D echocardiogram with Dopplers. Continue DAPT with aspirin 81 mg daily and clopidogrel 75 mg daily If recurrent symptoms will start heparin drip this evening Morphine sulfate 2 mg IV every 30 minutes as needed chest pain Acetaminophen 650 mg by mouth every 6 hours as needed for mild pain or fever Consult cardiology Hyperlipidemia- Continue rosuvastatin 10 to 20 mg every morning Check a fasting lipid panel GERD- Continue pantoprazole 40 mg daily Asthma- Continue usual inhalers Anxiety- Continue alprazolam as needed Admission and Anticipated Discharge Date Admission Date: March 04, 2024 History of Present Illness Chief Complaint: The patient is a 73-year-old female who presents to the emergency department with the complaint of chest pain that has been off-and-on over the past 2 hours prior to arrival to the ED, with patient concern regarding a potential cardiac issue, since she had an MO with stents on 10/30/2023 Primary Care Provider: Crystal Willett MD The patient is a 73-year-old female with a past medical history including MO status post stents on 10/30/2023, CAD, positive TRANG, asthma, anxiety, GERD, TMJ syndrome, classic migraine with aura, migraine and B12 deficiency. She presents to the emergency department with acute onset of on and off chest discomfort and accompanying shortness of breath over the past 2 hours prior to arrival. She has been on dual antiplatelet therapy of aspirin and Plavix, and Crestor, taking all medications as directed.. Allergies Allergy/AdvReac Type Severity Reaction Status Date / Time amoxicillin Allergy Rash Verified 02/22/24 08:56 Atorvastatin AdvReac Mild Headache Uncoded 02/22/24 08:46 Home Medications Medication Instructions Recorded Confirmed Type acyclovir 5 % topical ointment 1 appln topical UD PRN herpes 05/25/19 02/22/24 History labialis #1 g cholecalciferol (vitamin D3) 125 4,000 units PO QAM 05/25/19 02/22/24 History mcg (5,000 unit) tablet cyanocobalamin (vitamin B-12) 100 2,000 mcg PO QAM 05/25/19 02/22/24 History mcg tablet fluticasone propionate 50 2 sprays intranasal UD PRN nasal 05/25/19 02/22/24 History mcg/actuation nasal congestion spray,suspension hydrocortisone acetate 25 mg 25 mg IN UD PRN hemorrhoids #60 ea 05/25/19 02/22/24 History rectal suppository sodium chloride 0.65 % nasal spray 1 sprays intranasal UD PRN dry 05/25/19 02/22/24 History aerosol nasal passages Lactobacillus acidophilus 10 10,000 mmu cells PO DAILY 12/05/20 02/22/24 History billion cell capsule (Probiotic) acetaminophen 500 mg tablet 1,000 mg PO UD PRN Pain 12/05/20 02/22/24 History (Tylenol Extra Strength) elderberry fruit 200 mg capsule 200 mg PO DAILY 12/05/20 02/22/24 History multivitamin 1 cap PO DAILY 12/05/20 02/22/24 History diclofenac sodium 1 % topical gel 4 g topical UD PRN Pain 01/17/22 02/22/24 History meclizine 25 mg chewable tablet 25 mg PO UD PRN Vertigo 01/17/22 02/22/24 History alprazolam 0.5 mg tablet 0.5 mg PO BID PRN tinnitus #15 tabs 03/31/22 02/22/24 R x valacyclovir 1 gram tablet 1,000 mg PO DAILY PRN Cold Sores 04/28/22 02/22/24 Rx #30 tabs clindamycin phosphate 1 % lotion 1 applic topical BID to axilla #60 10/06/22 02/22/24 Rx mL albuterol sulfate 90 mcg/actuation 2 puff inhalation Q6H PRN SHORT OF 05/25/23 02/22/24 Rx aerosol inhaler BREATH #8.5 grams lorazepam 0.5 mg tablet 0.5 - 1 mg (1 - 2 x 0.5 mg) PO HS 08/06/23 02/22/24 Rx PRN vertigo #60 tabs aspirin 81 mg tablet,delayed 81 mg PO DAILY 10/29/23 02/22/24 History release budesonide-formoterol HFA 80 2 puff inhalation BID PRN Other 10/29/23 02/22/24 History mcg-4.5 mcg/actuation aerosol inhaler (Symbicort) montelukast 10 mg tablet 10 mg PO HS asthma #90 tabs 10/30/23 02/22/24 Rx pantoprazole 40 mg tablet,delayed See Rx Instructions .Route .COMPLEX 11/19/23 02/22/24 History release sucralfate 100 mg/mL oral 10 ml PO QID PRN reflux #400 mL 11/19/23 02/22/24 Rx suspension rosuvastatin 20 mg tablet (Crestor) 20 mg PO QAM #90 tabs 11/20/23 02/22/24 Rx estradiol-norethindrone acet 1 1 tab PO .QOD 12/25/23 02/22/24 History mg-0.5 mg tablet (Mimvey) blood pressure monitor #1 ea 01/25/24 02/22/24 Rx ticagrelor 90 mg tablet (Brilinta) 90 mg PO BID 30 days #60 tabs 03/05/24 Rx Past Med/Surg History Problem List (Updated 03/06/24 @ 00:04 by Poli Cronin MD) NSTEMI (non-ST elevated myocardial infarction) Substernal chest pain (Acute) Dyspnea on exertion Bruising Fatigue Asymptomatic microscopic hematuria S/P coronary artery stent placement Palpitations Atypical chest pain CAD (coronary artery disease) Positive antinuclear antibody Vulvar dermatitis Allergic rhinitis with postnasal drip Asthma SINGULAR CONTROLS AND PRN inhaler, uses < once month, only triggered by allergens Anxiety GERD (gastroesophageal reflux disease) Tinnitus of both ears Vertebrobasilar artery insufficiency (Chronic) TMJ syndrome (Chronic) Sleep disturbance (Chronic) Insomnia (Chronic) Herpes labialis (Chronic) Food intolerance in adult (Chronic) Elevated BP without diagnosis of hypertension (Chronic) Classic migraine with aura (Chronic) Aneurysm of right internal carotid artery (Chronic) Post-menopausal bleeding Postmenopausal hormone replacement therapy Family history of colon cancer in father Arthralgia Migraine Medical History NSTEMI (non-ST elevated myocardial infarction) Vertigo Lumbar radiculopathy Degenerative disc disease Hx of basal cell carcinoma Chronic back pain GERD (gastroesophageal reflux disease) Scoliosis Osteoarthritis Actinic keratosis Cerebral arterial aneurysm Mammogram abnormal Osteopenia Surgical History History of hysteroscopy S/P aneurysm repair Difficult airway for intubation History of esophagogastroduodenoscopy (EGD) (06/2019) Family history of reaction to anesthesia History of breast biopsy Lumbar spine tumor History of colonoscopy (06/2013) History of rhinoplasty History of tonsillectomy History of section Family History Father Colorectal cancer Mother Myocardial infarction Heart disease Cerebral aneurysm Grandmother (Maternal) Breast cancer Denies family history of Ovarian cancer Prostate cancer Social History Smoking Status: Never smoker Second Hand Exposure: No; Do You Dip or Chew Tobacco: No; Hx Alcohol Use: No Hx Substance Use: No Preferred Language: Cantonese [place]se Communication Ability: Effective Visual Impairment: No Limitations Hearing Ability: Normal Geriatric Physical Therapist Required: No Beliefs That Will Affect Care: None marital status: Current Living Situation: Spouse current occupational status: retired current occupation: Retired How many Children do You have: 1 Feels Safe at Home: Yes Childhood Exposure to Second-Hand Smoke: Yes Diet: regular caffeine: Yes during the past year weight has: increased > 10 lbs Dental Care, Regularly: Yes Physical Activity Frequency: Daily Seatbelt Use: always Sunscreen Use: Yes Assistive Devices: None Review of Systems Review of Systems: The patient denies palpitations, cough, lower extremity swelling, sore throat, fevers, chills, sweats, nausea, vomiting, diarrhea , constipation, abdominal pain, pelvic pain, blood in urine or stool, dysuria, urinary frequency or urgency, lightheadedness, dizziness, headache, memory loss, loss of consciousness, rash, abnormal bruising or bleeding, imbalance, focal or generalized weakness, numbness or tingling in arms or legs, generalized arthralgias or myalgias, back or neck pain, or night sweats. The review of systems is otherwise negative other than for that already noted above, and at least 10 systems have been reviewed. Physical Exam Physical Exam: The patient is awake, alert and oriented 3, well developed and well nourished, normocephalic and atraumatic, lying in bed and in no acute distress. HEENT--PERRL, EOMI, mucous membranes and oropharynx normal Neck--supple. No JVD. No bruits. Thyroid normal, trachea midline, no adenopathy. Heart--normal S1 and S2. No murmurs, rubs or gallops. Lungs--clear bilaterally, no respiratory distress, no accessory muscle use. Abdomen--normal bowel sounds and soft. Nontender. Nondistended, no hernias or masses, no organomegaly. Extremities--no cyanosis or clubbing. No edema. There are good distal pulses b/l. Dermatologic--normal skin turgor, normal color, no abnormal lymph nodes, no rash. Neurologic--cranial nerves II through XII grossly intact. Rheumatologic--normal range of motion. Psychiatric--normal affect. Results & Data Results & Data Vital Signs (Past 12 Hours) Vital Signs Temp Pulse Pulse Resp BP Pulse Ox O2 Del Method 03/05/24 16:00 62 03/05/24 15:47 36.8 C 74 20 116/68 96 03/05/24 15:00 36.8 C 74 20 116/68 96 Room Air Laboratory Results Laboratory Results WBC 6.76 K/ul (4.8-10.8) 03/05/24 05:14 RBC 4.50 M/uL (4.20-5.40) 03/05/24 05:14 Hgb 13.2 g/dl (12.0-16.0) 03/05/24 05:14 Hct 39.4 % (37.0-47.0) 03/05/24 05:14 MCV 87.6 fL (80.0-100.0) 03/05/24 05:14 MCH 29.3 pg (25.0-34.0) 03/05/24 05:14 MCHC 33.5 g/dL (32.0-36.0) 03/05/24 05:14 RDW Std Deviation 43.1 fL (36.4-46.3) 03/05/24 05:14 RDW Coeff of Sheela 13.3 % (11.5-14.5) 03/05/24 05:14 Plt Count 156 K/uL (130-400) 03/05/24 05:14 MPV 9.1 fL (9.4-12.4) L 03/05/24 05:14 Immature Gran % (Auto) 0.3 % 03/05/24 05:14 Neut % (Auto) 56.9 % 03/05/24 05:14 Lymph % (Auto) 31.2 % 03/05/24 05:14 Stephens % (Auto) 8.6 % 03/05/24 05:14 Eos % (Auto) 2.7 % 03/05/24 05:14 Baso % (Auto) 0.3 % 03/05/24 05:14 Neut # (Auto) 3.85 K/uL (1.40-6.50) 03/05/24 05:14 Lymph # (Auto) 2.11 K/uL (1.20-3.40) 03/05/24 05:14 Stephens # (Auto) 0.58 K/uL (0.11-0.59) 03/05/24 05:14 Eos # (Auto) 0.18 K/uL (0.00-0.50) 03/05/24 05:14 Baso # (Auto) 0.02 K/uL (0.00-0.20) 03/05/24 05:14 Immature Gran # (Auto) 0.02 K/uL (0.01-0.20) 03/05/24 05:14 Sodium 138 mmol/L (136-145) 03/05/24 05:14 Potassium 4.2 mmol/L (3.5-5.1) 03/05/24 05:14 Chloride 109 mmol/L (98-107) H 03/05/24 05:14 Carbon Dioxide 23 mmol/L (21-32) 03/05/24 05:14 Anion Gap 6 (3-11) 03/05/24 05:14 BUN 14 mg/dl (6-23) 03/05/24 05:14 Creatinine 0.63 mg/dl (0.6-1.2) 03/05/24 05:14 Est Cr Clr Drug Dosing 75.2 ml/min 03/05/24 05:14 Est GFR ( Amer) 104.6 ml/min 03/05/24 05:14 Est GFR (Non-Af Amer) 90.2 ml/min 03/05/24 05:14 BUN/Creatinine Ratio 22.2 (10-20) H 03/05/24 05:14 Glucose 89 mg/dl (70-99(Fasting)) 03/05/24 05:14 POC Glucose 92 mg/dl (70-99) 03/04/24 23:21 Calcium 8.8 mg/dl (8.6-10.3) 03/05/24 05:14 Magnesium 2.0 mg/dl (1.7-2.4) 03/05/24 05:14 Total Bilirubin 0.5 mg/dl (0.2-1.0) 03/05/24 05:14 Direct Bilirubin 0.0 mg/dl (0-0.2) 03/04/24 01:45 AST 18 U/L (13-39) 03/05/24 05:14 ALT 13 U/L (7-52) 03/05/24 05:14 Alkaline Phosphatase 41 U/L (34-104) 03/05/24 05:14 Troponin I High Sens 51.0 pg/ml (0-14) H* D 03/04/24 Unknown Total Protein 6.3 gm/dl (6.0-8.3) 03/05/24 05:14 Albumin 4.1 gm/dl (3.4-5.0) 03/05/24 05:14 Globulin 2.2 gm/dl (2.5-4.0) L 03/05/24 05:14 Albumin/Globulin Ratio 1.9 (0.9-2) 03/05/24 05:14 Lipase 27 U/L (11-82) 03/04/24 01:[address] 03/05/24 12:00 CT head/brain wo con CLINICAL HISTORY: headache, prior aneurysm, r/o bleed Technique: Contiguous axial CT images of the head were acquired from the base of the skull to the vertex without intravenous contrast administration. Images were viewed in brain, subdural and bone windows. Automated dose lowering techniques and/or adjustment according to patient size were utilized for this exam. Comparison: Comparison is made to MRI brain 05/18/[address] temporal bones 10/17 Findings: The ventricles, basal cisterns, and cerebral sulci are normal. There is no acute intracranial hemorrhage or evidence of acute territorial infarction. Neither mass effect, shift of the midline structures, nor abnormal extra-axial fluid collections are shown. Imaged portions of the paranasal sinuses and mastoid air cells are clear. The orbits appear normal. There are no acute fractures of the calvaria or scalp swelling. Impression: No acute abnormalities and in particular no evidence of intracranial hemorrhage. ACT 112: Negative or not required by law. Electronically signed by: Terrence Florian M.D. 03/05/2024 3:24 PM Code Status & VTE Plan Code Status Full code VTE Prophylaxis Plan VTE Prophylaxis will be ordered: Yes PG Care Time/CCT Total # of Minutes Spent Total Time Spent with Patient: Total time spent is greater than 50% in coordination of care (as documented) at patient's floor/unit and/or counseling patient: Coding Level of Care Code 59779 INT INP/OBS CARE 3/75MIN Diagnoses Substernal chest pain R07.2 Dyspnea on exertion R06.09 S/P coronary artery stent placement Z95.5 NSTEMI (non-ST elevated myocardial infarction) I21.4 CAD (coronary artery disease) I25.10 Asthma J45.909 GERD (gastroesophageal reflux disease) K21.9
--- NOTE | 2024-03-07 10:50 | Electrocardiogram Report ---
Test Reason : Blood Pressure : / mmHG Vent. Rate : 065 BPM Atrial Rate : 065 BPM P-R Int : 132 ms QRS Dur : 080 ms QT Int : 410 ms P-R-T Axes : 071 066 055 degrees QTc Int : 426 ms Normal sinus rhythm Normal ECG When compared with ECG of 22-FEB-2024 09:41, (unconfirmed) No significant change was found Confirmed by Sukhdev Drummond ([id number]) on 03/07/2024 10:50:43 AM Referred By: REFERRED SELF Confirmed By:Sukhdev Drummond
--- NOTE | 2024-03-07 10:52 | Electrocardiogram Report ---
Test Reason : Blood Pressure : / mmHG Vent. Rate : 060 BPM Atrial Rate : 060 BPM P-R Int : 140 ms QRS Dur : 074 ms QT Int : 432 ms P-R-T Axes : 066 060 051 degrees QTc Int : 432 ms Normal sinus rhythm Normal ECG When compared with ECG of 04-MAR-2024 01:46, (unconfirmed) No significant change was found Confirmed by Sukhdev Drummond ([id number]) on 03/07/2024 10:52:31 AM Referred By: REFERRED SELF Confirmed By:Sukhdev Drummond
== END 2024-03-05 16:46 | disposition home or self-care (01) | DRG 322 ==
LOC: 1E 12:00 → ED 16:09 → 1E 16:21 → SUATTDRO 16:21

== ENCOUNTER 2025-05-19 09:24 | Observation (INO) ==
--- NOTE | 2025-05-19 10:02 | XRay Report ---
XR chest 1V portable CLINICAL HISTORY: Chest pain, nonspecific COMPARISON STUDY: 07/19/2024 FINDINGS: Heart size and pulmonary vasculature are normal. No consolidation or pleural effusion. No p neumothorax. Stable scoliosis. IMPRESSION: No acute findings. ACT 112: Negative or not required by law. Electronically signed by: Frank Denis M.D. 05/19/2025 10:01 AM
[2025-05-19 10:03] LABS: Hematocrit (blood only) 42.9 % (37.0-47.0); Hemoglobin 14.1 g/dl (12.0-16.0); Immature Granulocytes # (auto) 0.03 K/uL (0.01-0.20); Immature Granulocytes % (auto) 0.3 %; Mean Corpuscular Hemoglobin 29.8 pg (25.0-34.0); Mean Corpuscular Volume 90.7 fL (80.0-100.0); Platelet Count 221 K/uL (130-400); RDW Standard Deviation 45.9 fL (36.4-46.3); Red Blood Count 4.73 M/uL (4.20-5.40); White Blood Count 9.98 K/ul (4.8-10.8)
--- NOTE | 2025-05-19 10:07 | Emergency Department Note ---
Impression & Plan Chest pain ED Provider Note HISTORY OF PRESENT ILLNESS: Patient is a 74-year-old female presenting with chest pain. Patient reports that she woke up at 3 AM with a burning sensation in her substernal region. States that it feels like very bad heartburn. She has a history of 2 stents in her LAD. She is on Brilinta. She states she took 4 aspirin today. Her heartburn and chest pain symptoms have been ongoing for the last few hours. Denies any shortness of breath. She does report some nausea. Denies any vomiting. She does report a few episodes of diarrhea today. She states she feels slightly lightheaded. States this feels similar to her previous anginal symptoms. ROS: as above PHYSICAL EXAM: Constitutional: Patient appears in no acute distress. HENT: Head: Normocephalic and atraumatic. Eyes: EOMI, PERRL Mouth/Throat: Mucous membranes moist. Neck: Trachea midline. Neck supple. Cardiovascular: RRR, No murmurs, rubs or gallops. Intact distal pulses. Pulmonary/Chest: No respiratory distress. Breath sounds clear and equal bilaterally. No wheezes or rales. Abdominal: Abdomen soft, no tenderness, rebound or guarding. Musculoskeletal: No edema, tenderness or deformity noted. Skin: Warm and dry. No rash, erythema, pallor or cyanosis Psychiatric: Appropriate mood and affect for situation. Neurological: Alert and keenly responsive. CN II-XII grossly intact, moving all extremities equally and fully. MDM: - Vitals signs stable - History obtained via patient. History as above. - Chronic conditions affecting care: CAD (s/p PCI); GERD - Differential diagnoses include, but are not limited to: Acute coronary syndrome; pulmonary embolism; dissection; tension pneumothorax; esophageal rupture; pneumonia - Order placed for continuous cardiac monitoring. At this time, monitor showed rate of 80 bpm with normal sinus rhythm, per my interpretation. - External medical records reviewed. Cardiology visit note dated 02/27/2025 was reviewed. Patient follows in the clinic for history of CAD with 2 stents to the LAD. - EKG image interpreted by myself showed normal sinus rhythm. Rate 73 bpm. QT 396. No acute ischemic changes. - Laboratory workup interpreted by myself showed normal WBC; stable electrolytes; normal troponin; normal AST/ALT; normal lipase - CXR image reviewed interpreted by myself is negative for pneumonia, per my interpretation. - Patient given GI cocktail with viscous lidocaine in ER. - On reassessment, still having a burning sensation in her chest. She was agreeable to 1 g IV Tylenol. - Repeat troponin within normal limits - HEART score 5 (+1 moderately suspicious; +2 age; +2 risk factors). - Though ACS is deemed less likely, the patient is having her anginal equivalent of chest pain. Symptoms not improved with a GI cocktail. Will discuss case with hospitalist service. - Discussion was had with director case management about patient's case and need for admission - Hospitalist consulted for admission - Patient admitted to [facility] hospitalist service for further evaluation and management. ASSESSMENT AND PLAN: Diagnosis: chest pain Plan: admit Past Med/Surg History Problem List (Updated 05/19/25 @ 14:01 by Shadia Kay MD) Chest pain (Acute) Levoscoliosis of lumbar spine 16 degrees with multilevel discogenic degeneration, severe at L2-L3 Lumbar degenerative disc disease Arthropathy of lumbar facet joint Right hip pain Pulmonary nodule Abnormal CXR Chest pain, exertional NSTEMI (non-ST elevated myocardial infarction) Dyspnea on exertion Bruising Fatigue Asymptomatic microscopic hematuria S/P coronary artery stent placement Palpitations Atypical chest pain CAD (coronary artery disease) Positive antinuclear antibody Vulvar dermatitis Allergic rhinitis with postnasal drip Asthma SINGULAR CONTROLS AND PRN inhaler, uses < once month, only triggered by allergens Anxiety GERD (gastroesophageal reflux disease) Tinnitus of both ears Vertebrobasilar artery insufficiency (Chronic) TMJ syndrome (Chronic) Sleep disturbance (Chronic) Insomnia (Chronic) Herpes labialis (Chronic) Food intolerance in adult (Chronic) Elevated BP without diagnosis of hypertension (Chronic) Classic migraine with aura (Chronic) Aneurysm of right internal carotid artery (Chronic) Post-menopausal bleeding Postmenopausal hormone replacement therapy Family history of colon cancer in father Arthralgia Migraine Medical History Substernal chest pain Vertigo Lumbar radiculopathy Degenerative disc disease Hx of basal cell carcinoma Chronic back pain GERD (gastroesophageal reflux disease) Scoliosis Osteoarthritis Actinic keratosis HX Cerebral arterial aneurysm (Carotid-ophthalmic artery region), treated initially with a Pipeline flow diverter 08/2015, with re-do 02/2017 when aneurysm did not occlude ([facility]). Second opinion 09/2019, MRA showed persistent flow into the aneurysm, although smaller than previous. Last neurosurg visit 04/10/20 -- discussed retreatment with new flow diverter device vs continued observation; pt considering options, to f/u in 1 year. LAST NEURO VISIT - OCTOBER 2021 - BENIGNO GOT SMALLER FOR THE FIRST TIME IN 5 YR Mammogram abnormal Osteopenia Surgical History History of hysteroscopy S/P aneurysm repair brain aneurysm repair x 2 in 2014 & 2016; reports still an aneurysm present and [place] [facility] [place]; last check 03/2020. LAST CHECK OCTOBER 2021 MRA'S EVERY 6 MON TO EVERY YR - MOST RECENT MRA OCTOBER 2021 Difficult airway for intubation small airway per pt History of esophagogastroduodenoscopy (EGD) (06/2019) Family history of reaction to anesthesia MOTHER-CONFUSION/DELERIUM POST OP AFTER OPEN HEART SURGERY/VALVE REPLACEMENTS History of breast biopsy BENIGN Lumbar spine tumor REMOVED "BENIGN" History of colonoscopy (06/2013) History of rhinoplasty History of tonsillectomy History of section 1985 Family History Father Colorectal cancer Mother Myocardial infarction Heart disease Cerebral aneurysm Grandmother (Maternal) Breast cancer Denies family history of Ovarian cancer Prostate cancer Social History Smoking Status: Never smoker Second Hand Exposure: No; Do You Dip or Chew Tobacco: No; Hx Alcohol Use: Yes Alcohol type: beer and wine Alcohol Intake Frequency: Monthly or Less Hx Substance Use: No Preferred Language: Georgian Communication Ability: Effective Visual Impairment: No Limitations Hearing Ability: Normal Montessori Teacher Required: No Beliefs That Will Affect Care: None marital status: Current Living Situation: Spouse current occupational status: retired current occupation: Retired How many Children do You have: 1 Feels Safe at Home: Yes Childhood Exposure to Second-Hand Smoke: Yes Diet: regular caffeine: Yes during the past year weight has: increased > 10 lbs Dental Care, Regularly: Yes Seatbelt Use: always Sunscreen Use: Yes Assistive Devices: None Allergies Allergies Allergy/AdvReac Type Severity Reaction Status Date / Time amoxicillin Allergy Rash Verified 05/18/25 13:29 Home Meds Home Medications Medication Instructions Recorded Confirmed acyclovir 5 % topical ointment 1 appln topical UD PRN herpes 05/25/19 05/18/25 labialis #1 g fluticasone propionate 50 2 sprays intranasal UD PRN nasal 05/25/19 05/18/25 mcg/actuation nasal congestion spray,suspension hydrocortisone acetate 25 mg 25 mg AK UD PRN hemorrhoids #60 ea 05/25/19 05/18/25 rectal suppository sodium chloride 0.65 % nasal spray 1 sprays intranasal UD PRN dry 05/25/19 05/18/25 aerosol nasal passages Lactobacillus acidophilus 10 10,000 mmu cells PO DAILY 12/05/20 05/18/25 billion cell capsule (Probiotic) acetaminophen 500 mg tablet 1,000 mg PO UD PRN Pain 12/05/20 05/18/25 (Tylenol Extra Strength) multivitamin 1 cap PO DAILY 12/05/20 05/18/25 diclofenac sodium 1 % topical gel 4 g topical UD PRN Pain 01/17/22 05/18/25 meclizine 25 mg chewable tablet 25 mg PO UD PRN Vertigo 01/17/22 05/18/25 aspirin 81 mg tablet,delayed 81 mg PO DAILY 10/29/23 05/18/25 release cyclobenzaprine 10 mg tablet 10 mg PO HS 05/18/25 05/18/25 methocarbamol 500 mg tablet 500 mg PO TID 05/18/25 05/18/25 vitamin B 12 PO 05/18/25 Previous Rx's Medication Instructions Recorded alprazolam 0.5 mg tablet 0.5 mg PO BID PRN tinnitus #15 tabs 03/31/22 valacyclovir 1 gram tablet 1,000 mg PO DAILY PRN Cold Sores 04/28/22 #30 tabs clindamycin phosphate 1 % lotion 1 applic topical BID to axilla #60 10/06/22 mL lorazepam 0.5 mg tablet 0.5 - 1 mg (1 - 2 x 0.5 mg) PO HS 08/06/23 PRN vertigo #60 tabs blood pressure monitor #1 ea 01/25/24 nitroglycerin 0.4 mg sublingual 0.4 mg sublingual Q5M PRN chest 03/28/24 tablet pain #25 tabs nystatin-triamcinolone 100,000 1 applic topical BID 10 days #30 05/31/24 unit/gram-0.1 % topical ointment grams atorvastatin 20 mg tablet 20 mg PO HS #90 tabs 06/27/24 ranolazine 500 mg tablet,extended 500 mg PO BID #180 tabs 01/02/25 release,12 hr pantoprazole 40 mg tablet,delayed 40 mg PO DAILY #30 tabs 01/05/25 release sucralfate 100 mg/mL oral 10 ml PO QID PRN reflux #400 mL 01/24/25 suspension ticagrelor 60 mg tablet 60 mg PO BID #180 tabs 03/20/25 Mimvey 1 mg-0.5 mg tablet 1 tab PO .COMPLEX #28 tabs 03/22/25 (estradiol-norethindrone acet) albuterol sulfate 90 mcg/actuation 2 puff inhalation Q6H PRN SHORT OF 05/03/25 aerosol inhaler BREATH #8.5 grams budesonide-formoterol HFA 80 2 puff inhalation BID PRN Other 05/03/25 mcg-4.5 mcg/actuation aerosol #10.2 grams inhaler (Symbicort) montelukast 10 mg tablet 10 mg PO HS asthma #90 tabs 05/03/25 Results & Data (ED) Vital Signs Vital Signs - 24 hr 05/19/25 09:36 05/19/25 09:38 05/19/25 09:38 Temperature 36.5 C Temperature Source Oral Pulse Rate 76 77 Pulse Rate [Apical] Pulse Rhythm Regular Pulse Rhythm [Apical] Pulse Strength Normal Pulse Strength [Apical] Respiratory Rate 23 Respiratory Effort / Characteristics Non-Labored Spontaneous Respiratory Depth Normal Respiratory Pattern Regular Blood Pressure 133/77 Blood Pressure [Right Arm] Blood Pressure Mean 95 Blood Pressure Mean [Right Arm] Blood Pressure Position Lying Blood Pressure Position [Right Arm] Pulse Oximetry 97 97 Oxygen Delivery Method Room Air Room Air Sepsis Recent Fever Within 48 Hours No Sepsis New/Unexplained Change in Mental Status No Sepsis Action Taken by Nursing No Action Required 05/19/25 09:38 05/19/25 09:38 05/19/25 11:56 Temperature Temperature Source Pulse Rate 77 Pulse Rate [Apical] 77 79 Pulse Rhythm Regular Pulse Rhythm [Apical] Regular Regular Pulse Strength Pulse Strength [Apical] Normal Normal Respiratory Rate 23 23 Respiratory Effort / Characteristics Non-Labored Spontaneous Non-Labored Spontaneous Respiratory Depth Normal Normal Respiratory Pattern Regular Regular Blood Pressure Blood Pressure [Right Arm] 133/77 130/71 Blood Pressure Mean Blood Pressure Mean [Right Arm] 95 90 Blood Pressure Position Blood Pressure Position [Right Arm] Lying Lying Pulse Oximetry 97 97 96 Oxygen Delivery Method Room Air Room Air Room Air Sepsis Recent Fever Within 48 Hours Sepsis New/Unexplained Change in Mental Status Sepsis Action Taken by Nursing 05/19/25 13:00 05/19/25 13:07 Temperature Temperature Source Pulse Rate 79 Pulse Rate [Apical] 79 Pulse Rhythm Pulse Rhythm [Apical] Regular Pulse Strength Pulse Strength [Apical] Normal Respiratory Rate 16 Respiratory Effort / Characteristics Non-Labored Spontaneous Respiratory Depth Normal Respiratory Pattern Regular Blood Pressure Blood Pressure [Right Arm] 99/62 L Blood Pressure Mean Blood Pressure Mean [Right Arm] 74 Blood Pressure Position Blood Pressure Position [Right Arm] Lying Pulse Oximetry 96 Oxygen Delivery Method Room Air Sepsis Recent Fever Within 48 Hours Sepsis New/Unexplained Change in Mental Status Sepsis Action Taken by Nursing Laboratory Data 05/19/25 09:28 05/19/25 09:28 Lab Results 05/19/25 05/19/25 Range/Units 09:28 12:07 WBC 9.98 (4.8-10.8) K/ul RBC 4.73 (4.20-5.40) M/uL Hgb 14.1 (12.0-16.0) g/dl Hct 42.9 (37.0-47.0) % MCV 90.7 (80.0-100.0) fL MCH 29.8 (25.0-34.0) pg MCHC 32.9 (32.0-36.0) g/dL RDW Std Deviation 45.9 (36.4-46.3) fL RDW Coeff of Sheela 13.8 (11.5-14.5) % Plt Count 221 (130-400) K/uL MPV 9.4 (9.4-12.4) fL Immature Gran % (Auto) 0.3 % Neut % (Auto) 68.3 % Lymph % (Auto) 23.0 % [place] % (Auto) 6.4 % Eos % (Auto) 1.4 % Baso % (Auto) 0.6 % Neut # (Auto) 6.81 H (1.40-6.50) K/uL Lymph # (Auto) 2.30 (1.20-3.40) K/uL [place] # (Auto) 0.64 H (0.11-0.59) K/uL Eos # (Auto) 0.14 (0.00-0.50) K/uL Baso # (Auto) 0.06 (0.00-0.20) K/uL Immature Gran # (Auto) 0.03 (0.01-0.20) K/uL Sodium 138 (136-145) mmol/L Potassium 4.4 (3.5-5.1) mmol/L Chloride 104 (98-107) mmol/L Carbon Dioxide 26 (21-32) mmol/L Anion Gap 8 (3-11) BUN 19 (6-23) mg/dl Creatinine 0.82 (0.6-1.2) mg/dl Est Cr Clr Drug Dosing Not Reportable eGFR 75.95 BUN/Creatinine Ratio 23.2 H (10-20) Glucose 90 (70-99(Fasting)) mg/dl Calcium 10.1 (8.6-10.3) mg/dl Total Bilirubin 0.6 (0.2-1.0) mg/dl AST 24 (13-39) U/L ALT 22 (7-52) U/L Alkaline Phosphatase 53 (34-104) U/L Troponin I High Sens 3.4 3.3 (0-14) pg/ml Total Protein 7.9 (6.0-8.3) gm/dl Albumin 4.8 (3.4-5.0) gm/dl Globulin 3.1 (2.5-4.0) gm/dl Albumin/Globulin Ratio 1.5 (0.9-2) Lipase 15 (11-82) U/L Administered Medications Discontinued Medications Al Hydrox/Mg Hydrox/Simethicone (Aluminum/Magnesium Susp 30 Ml Udc) 15 ml PO NOW STA Stop: 05/19/25 10:05 Last Admin: 05/19/25 10:11 Dose: 15 ml Documented By: ELA Lidocaine HCl (Lidocaine Viscous 2% 15 Ml Udc) 15 ml MT NOW ONE Stop: 05/19/25 10:05 Last Admin: 05/19/25 10:12 Dose: 15 ml Documented By: ELA Imaging Data Radiologist's Impression: Chest X-Ray 05/19/25 09:33 XR chest 1V portable CLINICAL HISTORY: Chest pain, nonspecific COMPARISON STUDY: 07/19/2024 FINDINGS: Heart size and pulmonary vasculature are normal. No consolidation or pleural effusion. No pneumothorax. Stable scoliosis. IMPRESSION: No acute findings. ACT 112: Negative or not required by law. Electronically signed by: Frank Denis M.D. 05/19/2025 10:01 AM Discharge Plan Visit Data Chief Complaint: Chest Pain Stated Complaint: CHEST PAIN ED Provider: Shadia Kay Discharge Problem: Chest pain Condition: Fair Forms Stand Alone Forms: [facility] [employer] Prescriptions Prescriptions: No Action cyclobenzaprine 10 mg tablet 10 mg PO HS methocarbamol 500 mg tablet 500 mg PO TID vitamin B 12 PO valacyclovir 1 gram tablet 1,000 mg PO DAILY PRN (Reason: Cold Sores) Qty: 30 0RF Rx Instructions: Take 5 days before procedure. clindamycin phosphate 1 % lotion 1 applic topical BID Qty: 60 3RF (DME) blood pressure monitor Kit See Rx Instructions .Route Qty: 1 0RF Rx Instructions: As directed I25.10 nystatin-triamcinolone 100,000-0.1 unit/gram-% ointment 1 applic topical BID 10 Days Qty: 30 0RF atorvastatin 20 mg tablet 20 mg PO HS Qty: 90 3RF ranolazine 500 mg tablet extended release 12 hr 500 mg PO BID Qty: 180 3RF pantoprazole 40 mg tablet,delayed release (DR/EC) 40 mg PO DAILY Qty: 30 11RF sucralfate 100 mg/mL suspension 10 ml PO QID PRN (Reason: reflux) Qty: 400 2RF Rx Instructions: swish in mouth and swallow; use after food/drink ticagrelor 60 mg tablet 60 mg PO BID Qty: 180 3RF Rx Instructions: Reduce to 60 mg po bid on Mar 17, 2025 estradiol-norethindrone acet [Mimvey] 1-0.5 mg tablet 1 tab PO .COMPLEX Qty: 28 6RF Rx Instructions: 1 tab orally Every other day; acyclovir 5 % ointment 1 appln topical UD PRN (Reason: herpes labialis) Qty: 1 fluticasone propionate 50 mcg/actuation spray,suspension 2 sprays intranasal UD PRN (Reason: nasal congestion) sodium chloride 0.65 % aerosol,spray 1 sprays intranasal UD PRN (Reason: dry nasal passages) hydrocortisone acetate 25 mg suppository 25 mg AK UD PRN (Reason: hemorrhoids) Qty: 60 alprazolam 0.5 mg tablet 0.5 mg PO BID PRN (Reason: tinnitus) Qty: 15 0RF aspirin 81 mg tablet,delayed release (DR/EC) 81 mg PO DAILY lorazepam 0.5 mg tablet 0.5 - 1 mg PO HS PRN (Reason: vertigo) Qty: 60 0RF budesonide-formoterol [Symbicort] 80-4.5 mcg/actuation HFA aerosol inhaler 2 puff inhalation BID PRN (Reason: Other) Qty: 10.2 3RF albuterol sulfate 90 mcg/actuation HFA aerosol inhaler 2 puff inhalation Q6H PRN (Reason: SHORT OF BREATH) Qty: 8.5 5RF montelukast 10 mg tablet 10 mg PO HS Qty: 90 2RF nitroglycerin 0.4 mg tablet, sublingual 0.4 mg sublingual Q5M PRN (Reason: chest pain) Qty: 25 4RF Rx Instructions: up to 3 doses. If no resolution of Chest pain after 5 min, call 911. multivitamin Capsule 1 cap PO DAILY Probiotic 10 billion cell Capsule 10,000 mmu cells PO DAILY acetaminophen [Tylenol Extra Strength] 500 mg Tablet 1,000 mg PO UD PRN (Reason: Pain) meclizine 25 mg tablet,chewable 25 mg PO UD PRN (Reason: Vertigo) Rx Instructions: BRAND ONLY diclofenac sodium 1 % gel 4 g topical UD PRN (Reason: Pain) Rx Instructions: apply to single knee, ankle, foot; for foot includes sole/toes/top of foot Referrals Referrals: Crystal Willett MD [Primary Care Provider] -
[2025-05-19] MEDS: ALUMINUM/MAGNESIUM SUSP 30 ML UDC PO STA (10:11)
[2025-05-19] MEDS: LIDOCAINE VISCOUS 2% 15 ML UDC MT ONE (10:12)
[2025-05-19 10:22] LABS: Alanine Aminotransferase 22 U/L (7-52); Albumin Globulin Ratio 1.5 (0.9-2); Albumin Level 4.8 gm/dl (3.4-5.0); Alkaline Phosphatase 53 U/L (34-104); Anion Gap 8 (3-11); Bilirubin,Total 0.6 mg/dl (0.2-1.0); Blood Urea Nitrogen 19 mg/dl (6-23); Calcium 10.1 mg/dl (8.6-10.3); Carbon Dioxide 26 mmol/L (21-32); Chloride 104 mmol/L (98-107); Globulin 3.1 gm/dl (2.5-4.0); Glucose 90 mg/dl (70-99(Fasting)); Lipase 15 U/L (11-82); Potassium 4.4 mmol/L (3.5-5.1); Sodium 138 mmol/L (136-145); Total Protein 7.9 gm/dl (6.0-8.3)
[2025-05-19] MEDS: ACETAMINOPHEN 1,000 MG/100 ML VIAL IV STA (14:05)
[2025-05-19 14:34] LABS: Appearance Urine Clear (Clear); Bacteria Urine Automated None Seen (None Seen); Cast Urine Automated 0-2 /lpf (0-2); Epithelial Cell Urine Auto 0-2 /hpf (0-2); Glucose Urine UA Negative (Negative); WBC Urine Automated 0-5 /hpf (0-5)
[2025-05-19] MEDS ORDERED: POLYETHYLENE (MIRALAX) 17 GM PACK PO PRN (15:22)
[2025-05-19] MEDS ORDERED: ACETAMINOPHEN 325 MG TAB PO PRN (15:22)
[2025-05-19] MEDS ORDERED: MoRPHine SULFATE 2 MG/ML CARP IV PRN (15:22)
[2025-05-19] MEDS ORDERED: MAGNESIUM HYDROXIDE SUSP 30 ML UDC PO PRN (15:22)
[2025-05-19] MEDS ORDERED: ONDANSETRON INJ 2 MG/ML 2 ML VIAL IV PRN (15:22)
[2025-05-19] MEDS ORDERED: NITROGLYCERIN SL 0.4 MG/TAB TAB SL PRN (15:22)
[2025-05-19] MEDS ORDERED: ALUMINUM/MAGNESIUM SUSP 30 ML UDC PO PRN (15:22)
--- NOTE | 2025-05-19 15:49 | History & Physical Report ---
Date of Service May 19, 2025 Assessment & Plan (1) Chest pain: (2) GERD (gastroesophageal reflux disease): Plan Chest Pain Atypical presentation but very similar to her previous anginal symptoms Alternative diagnosis GERD, but no relief with GI cocktail. Consult cardiology Troponin q8 x 3 EKG in AM and with chest pain GERD Increase Protonix to BID EGD as scheduled later this month Asthma Pulmonary note from 05/11 reviewed Clinically stable; continue home medications Code: Full DVT: Lovenox 40mg SC daily History of Present Illness Chief Complaint: Chest Pain Primary Care Provider: Crystal Willett MD 74 y/o female with history of CAD S/P STENT to LAD awoke overnight into Thursday with heartburn symptoms and one episode of loose watery stool that was very similar to her previous presentation of NC. In fact , in each of her previous documented MIs, the patient reports similar symptoms and medical records also note normal troponin and EKGs initially. S/p LAD PCI x 2 in October 2023 and underwent second PCI on 02/2024 with in-stent restenosis with thrombus. Also noted to have small D1, not amenable to angioplasty and not felt to be severely stenotic. Cardiac cath was repeated on 07/20/2024 for worsening dyspnea on exertion and exertional chest discomfort. Nonobstructive CAD involving jailed D1 was noted but otherwise patent LAD stents and no other obstructive CAD. Troponin negative x 2. EKG reassuring/non acute. CXR with NAD. GI cocktail without improvement. She had a stress test 03/2025 which was negative for ischemia but she did have hypertensive response to exercise and decreased O2 saturation. She was subseque ntly evaluated by pulmonary medicine but symptoms not thouhgt to be related to pulmonary etiology. She is scheduled for EGD later this month. Reported intolerance to beta-holly (edema) that resolved upon discontinuation. She has not tolerated nitrate therapy due to headaches. Intolerant to rosuvastatin 20 mg daily (dyspepsia), but tolerating atorvastatin.R Given her history and similar symptoms to her prior NC, medicine consulted for admission. Allergies Allergy/AdvReac Type Severity Reaction Status Date / Time amoxicillin Allergy Rash Verified 05/18/25 13:29 Home Medications Medication Instructions Recorded Confirmed Type acyclovir 5 % topical ointment 1 appln topical UD PRN herpes 05/25/19 05/19/25 History labialis #1 g fluticasone propionate 50 2 sprays intranasal UD PRN nasal 05/25/19 05/19/25 History mcg/actuation nasal congestion spray,suspension sodium chloride 0.65 % nasal spray 1 sprays intranasal UD PRN dry 05/25/19 05/19/25 History aerosol nasal passages Lactobacillus acidophilus 10 10,000 mmu cells PO DAILY 12/05/20 05/19/25 History billion cell capsule (Probiotic) acetaminophen 500 mg tablet 1,000 mg PO Q6 PRN Pain 12/05/20 05/19/25 History (Tylenol Extra Strength) meclizine 25 mg chewable tablet 25 mg PO UD PRN Vertigo 01/17/22 05/19/25 History valacyclovir 1 gram tablet 1,000 mg PO DAILY PRN Cold Sores 04/28/22 05/19/25 Rx #30 tabs aspirin 81 mg tablet,delayed 81 mg PO QAM 10/29/23 05/19/25 History release blood pressure monitor #1 ea 01/25/24 04/27/25 Rx nitroglycerin 0.4 mg sublingual 0.4 mg sublingual Q5M PRN chest 03/28/24 05/18/25 Rx tablet pain #25 tabs atorvastatin 20 mg tablet 20 mg PO HS #90 tabs 06/27/24 05/19/25 Rx ranolazine 500 mg tablet,extended 500 mg PO BID #180 tabs 01/02/25 05/19/25 Rx release,12 hr sucralfate 100 mg/mL oral 10 ml PO QID PRN reflux #400 mL 01/24/25 05/19/25 Rx suspension ticagrelor 60 mg tablet 60 mg PO BID #180 tabs 03/20/25 05/19/25 Rx Mimvey 1 mg-0.5 mg tablet 1 tab PO .COMPLEX #28 tabs 03/22/25 05/19/25 Rx (estradiol-norethindrone acet) albuterol sulfate 90 mcg/actuation 2 puff inhalation Q6H PRN SHORT OF 05/03/25 05/19/25 Rx aerosol inhaler BREATH #8.5 grams budesonide-formoterol HFA 80 2 puff inhalation BID PRN Other 05/03/25 05/19/25 Rx mcg-4.5 mcg/actuation aerosol #10.2 grams inhaler (Symbicort) montelukast 10 mg tablet 10 mg PO HS asthma #90 tabs 05/03/25 05/19/25 Rx cyclobenzaprine 10 mg tablet 10 mg PO HS PRN Muscle Spasm 05/18/25 05/19/25 History methocarbamol 500 mg tablet 500 mg PO TID PRN Muscle Spasm 05/18/25 05/19/25 History cholecalciferol (vitamin D3) 25 25 mcg PO QAM 05/19/25 05/19/25 History mcg (1,000 unit) tablet (Vitamin D3) cyanocobalamin (vitamin B-12) 1,000 mcg PO QAM 05/19/25 05/19/25 History 1,000 mcg tablet (Vitamin B-12) multivitamin 1 tab PO DAILY 05/19/25 05/19/25 History pantoprazole 40 mg tablet,delayed 40 mg PO QAM 05/19/25 05/19/25 History release Past Med/Surg History Problem List Chest pain (Acute) Levoscoliosis of lumbar spine 16 degrees with multilevel discogenic degeneration, severe at L2-L3 Lumbar degenerative disc disease Arthropathy of lumbar facet joint Right hip pain Pulmonary nodule Abnormal CXR Chest pain, exertional NSTEMI (non-ST elevated myocardial infarction) Dyspnea on exertion Bruising Fatigue Asymptomatic microscopic hematuria S/P coronary artery stent placement Palpitations Atypical chest pain CAD (coronary artery disease) Positive antinuclear antibody Vulvar dermatitis Allergic rhinitis with postnasal drip Asthma SINGULAR CONTROLS AND PRN inhaler, uses < once month, only triggered by allergens Anxiety GERD (gastroesophageal reflux disease) Tinnitus of both ears Vertebrobasilar artery insufficiency (Chronic) TMJ syndrome (Chronic) Sleep disturbance (Chronic) Insomnia (Chronic) Herpes labialis (Chronic) Food intolerance in adult (Chronic) Elevated BP without diagnosis of hypertension (Chronic) Classic migraine with aura (Chronic) Aneurysm of right internal carotid artery (Chronic) Post-menopausal bleeding Postmenopausal hormone replacement therapy Family history of colon cancer in father Arthralgia Migraine Medical History Substernal chest pain Vertigo Lumbar radiculopathy Degenerative disc disease Hx of basal cell carcinoma Chronic back pain GERD (gastroesophageal reflux disease) Scoliosis Osteoarthritis Actinic keratosis HX Cerebral arterial aneurysm (Carotid-ophthalmic artery region), treated initially with a Pipeline flow diverter 08/2015, with re-do 02/2017 when aneurysm did not occlude ([facility]). Second opinion 09/2019, MRA showed persistent flow into the aneurysm, although smaller than previous. Last neurosurg visit 04/10/20 -- discussed retreatment with new flow diverter device vs continued observation; pt considering options, to f/u in 1 year. LAST NEURO VISIT - OCTOBER 2021 - ANNEURSYM GOT SMALLER FOR THE FIRST TIME IN 5 YR Mammogram abnormal Osteopenia Surgical History History of hysteroscopy S/P aneurysm repair brain aneurysm repair x 2 in 2014 & 2016; reports still an aneurysm present and monitored by [facility] approx q6m; last check 03/2020. LAST CHECK OCTOBER 2021 MRA'S EVERY 6 MON TO EVERY YR - MOST RECENT MRA OCTOBER 2021 Difficult airway for intubation small airway per pt History of esophagogastroduodenoscopy (EGD) (06/2019) Family history of reaction to anesthesia MOTHER-CONFUSION/DELERIUM POST OP AFTER OPEN HEART SURGERY/VALVE REPLACEMENTS History of breast biopsy BENIGN Lumbar spine tumor REMOVED "BENIGN" History of colonoscopy (06/2013) History of rhinoplasty History of tonsillectomy History of section 1985 Family History Father Colorectal cancer Mother Myocardial infarction Heart disease Cerebral aneurysm Grandmother (Maternal) Breast cancer Denies family history of Ovarian cancer Prostate cancer Social History Smoking Status: Never smoker Second Hand Exposure: No; Do You Dip or Chew Tobacco: No; Hx Alcohol Use: Yes Alcohol type: beer and wine Alcohol Intake Frequency: Monthly or Less Hx Substance Use: No Preferred Language: Japanese Communication Ability: Effective Visual Impairment: No Limitations Hearing Ability: Normal Wood Processing Worker Required: No Beliefs That Will Affect Care: None marital status: Current Living Situation: Spouse current occupational status: retired current occupation: Retired How many Children do You have: 1 Feels Safe at Home: Yes Childhood Exposure to Second-Hand Smoke: Yes Diet: regular caffeine: Yes during the past year weight has: increased > 10 lbs Dental Care, Regularly: Yes Seatbelt Use: always Sunscreen Use: Yes Assistive Devices: None Review of Systems Constitutional: no fever, no chills, no body aches and no fatigue Respiratory: no cough, no chest congestion, no dyspnea and no dyspnea on exertion Cardiovascular: + chest pain Gastrointestinal: + heartburn Physical Exam Constitutional: WD/WN, vitals as above ENMT: external ear and nose normal, oropharynx normal Respiratory: normal respiratory effort, lungs clear to auscultation Cardiovascular: RRR, no murmur, no edema Rate/Rhythm: regular rate and regular rhythm Heart Sounds: normal S1 and normal S2 Gastrointestinal (Abdomen): normal bowel sounds, soft, nontender, no hepatosplenomegaly Skin: no rashes, warm and dry Psychiatric: A+Ox3, euthymic affect Results & Data Results & Data Vital Signs (Past 12 Hours) Vital Signs Temp Pulse Pulse Resp BP BP Pulse Ox 05/19/25 15:10 70 18 136/76 97 05/19/25 13:07 79 05/19/25 13:00 79 16 99/62 L 96 05/19/25 11:56 79 130/71 96 05/19/25 09:38 77 23 97 05/19/25 09:38 77 23 133/77 97 05/19/25 09:38 97 05/19/25 09:38 36.5 C 77 23 133/77 97 05/19/25 09:36 76 O2 Del Method 05/19/25 15:10 05/19/25 13:07 05/19/25 13:00 Room Air 05/19/25 11:56 Room Air 05/19/25 09:38 Room Air 05/19/25 09:38 Room Air 05/19/25 09:38 Room Air 05/19/25 09:38 Room Air 05/19/25 09:36 Laboratory Results 05/19/25 05/19/25 05/19/25 Range/Units 14:17 12:07 09:28 WBC 9.98 (4.8-10.8) K/ul RBC 4.73 (4.20-5.40) M/uL Hgb 14.1 (12.0-16.0) g/dl Hct 42.9 (37.0-47.0) % MCV 90.7 (80.0-100.0) fL MCH 29.8 (25.0-34.0) pg MCHC 32.9 (32.0-36.0) g/dL RDW Std Deviation 45.9 (36.4-46.3) fL RDW Coeff of Sheela 13.8 (11.5-14.5) % Plt Count 221 (130-400) K/uL MPV 9.4 (9.4-12.4) fL Immature Gran % (Auto) 0.3 % Neut % (Auto) 68.3 % Lymph % (Auto) 23.0 % Quay % (Auto) 6.4 % Eos % (Auto) 1.4 % Baso % (Auto) 0.6 % Neut # (Auto) 6.81 H (1.40-6.50) K/uL Lymph # (Auto) 2.30 (1.20-3.40) K/uL Quay # (Auto) 0.64 H (0.11-0.59) K/uL Eos # (Auto) 0.14 (0.00-0.50) K/uL Baso # (Auto) 0.06 (0.00-0.20) K/uL Immature Gran # (Auto) 0.03 (0.01-0.20) K/uL Sodium 138 (136-145) mmol/L Potassium 4.4 (3.5-5.1) mmol/L Chloride 104 (98-107) mmol/L Carbon Dioxide 26 (21-32) mmol/L Anion Gap 8 (3-11) BUN 19 (6-23) mg/dl Creatinine 0.82 (0.6-1.2) mg/dl Est Cr Clr Drug Dosing Not Reportable eGFR 75.95 BUN/Creatinine Ratio 23.2 H (10-20) Glucose 90 (70-99(Fasting)) mg/dl Calcium 10.1 (8.6-10.3) mg/dl Total Bilirubin 0.6 (0.2-1.0) mg/dl AST 24 (13-39) U/L ALT 22 (7-52) U/L Alkaline Phosphatase 53 (34-104) U/L Troponin I High Sens 3.3 3.4 (0-14) pg/ml Total Protein 7.9 (6.0-8.3) gm/dl Albumin 4.8 (3.4-5.0) gm/dl Globulin 3.1 (2.5-4.0) gm/dl Albumin/Globulin Ratio 1.5 (0.9-2) Lipase 15 (11-82) U/L Urine Color Yellow Urine Appearance Clear (Clear) Urine pH 5.5 (4.5-7.5) Ur Specific [place] 1.013 (1.000-1.030) Urine Protein Negative (Negative) Urine Glucose (UA) Negative (Negative) Urine Ketones Negative (Negative) Urine Blood Trace H (Negative) Urine Nitrite Negative (Negative) Urine Bilirubin Negative (Negative) Urine Urobilinogen Negative (Negative) Ur Leukocyte Esterase Negative (Negative) Urine WBC (Auto) 0-5 (0-5) /hpf Urine RBC (Auto) 6-10 H (0-2) /hpf U Hyaline Cast (Auto) 0-2 (0-2) /lpf U Epithel Cells (Auto) 0-2 (0-2) /hpf Urine Bacteria (Auto) None Seen (None Seen) Urine Comment Code Status & VTE Plan VTE Prophylaxis Plan VTE Prophylaxis will be ordered: Yes (2) GERD (gastroesophageal reflux disease) Esophagitis presence: esophagitis presence not specified Qualified Code(s): K21.9 - Gastro-esophageal reflux disease without esophagitis
[2025-05-19] MEDS: ENOXAPARIN INJ 40 MG/0.4 ML SYR SQ SCH (17:02)
--- NOTE | 2025-05-19 17:32 | Cardiology Consultation ---
Date of Consultation May 19, 2025 Assessment & Plan (1) Chest pain: (2) CAD (coronary artery disease): Plan 1. Chest pain: I reviewed records suggest that while she has presented with similar symptoms in association with an acute coronary syndrome, she is also had the symptoms at other times. Her most recent evaluation for the same symptoms did not demonstrate any acute coronary syndrome or new occlusions. She does not have exertional symptoms to suggest obstructive coronary disease. There is no objective evidence of ischemia at this point. Her last cardiac biomarker was drawn approximately 7 hours after the onset of symptoms. This was entirely normal and unchanged from her initial biomarker. EKG also unremarkable. I think we will obtain another EKG and another troponin. If these are normal I would look for alternate etiologies for chest discomfort. Perhaps a trial of nonsteroidal medications such as Toradol or narcotics would be beneficial. 2. Coronary artery disease: She is known to have some compromise of a diagonal branch. However, stress echocardiography performed recently did not elicit any exertional chest pain and did not demonstrate any areas of ischemia. Her last catheterization performed in July 2024 demonstrated patency of her LAD stents. She should continue her secondary prevention with aspirin, atorvastatin and Brilinta. Unfortunately, I think she has a real coronary disease but symptoms that are not always associated with an acute coronary syndrome or heart disease. Her most recent evaluation for similar symptoms did not demonstrate any acute coronary syndrome or worsening coronary disease. I think were in the same position today where despite her symptoms she is not having an acute coronary syndrome and she has not had symptoms recently of worsening obstructive disease. As such, I would seek alternative etiologies for her current "indigestion". Perhaps nonsteroidal medication or narcotics. History of Present Illness Reason for Consultation: Chest pain Requesting Physician: Halina Attending Physician: Halina History of Present Illness The patient is a 74-year-old woman with a history of coronary artery disease having previously undergone percutaneous intervention to the LAD on 2 occasions. He states that around 3 AM this morning she woke with symptoms of "indigestion". She describes this as a burning sensation in in the precordial area. There is no radiation to the back or arms. No radiation to the jaw. Not pleuritic in nature. Not changed with changes in position. The symptoms itself was mild to moderate in intensity. She felt that this symptom was similar to episode she has had in the past and on 1 occasion correlated with an acute coronary syndrome. Based on her concerns she presented to the emergency room for an evaluation. EKG was normal. She was administered some remedies for indigestion without effect. Her initial cardiac biomarker was normal and she was referred to the hospitalist service for admission. Patient states that in general she is an active individual. While she does not exercise vigorously she is participating in cardiac rehab. She also plays with her grandchildren and is able to perform routine activities around the house including ascending stairs. She generally does not have symptoms associated with this activity. Occasionally some shortness of breath. She was evaluated on an outpatient basis for some dyspnea on exertion with exercise echocardiography. This did not reveal any evidence of ischemia. She was also recently seen by storeroom clerk for symptoms of dyspnea. No specific pulmonary problem was suggested. Currently she continues to have her presenting symptom. She also describes an "odd" sensation in the left chest area. This is fairly well localized and described as a "deep ache". Allergies Allergy/AdvReac Type Severity Reaction Status Date / Time amoxicillin Allergy Rash Verified 05/18/25 13:29 Home Medications Medication Instructions Recorded Confirmed Type acyclovir 5 % topical ointment 1 appln topical UD PRN herpes 05/25/19 05/19/25 History labialis #1 g fluticasone propionate 50 2 sprays intranasal UD PRN nasal 05/25/19 05/19/25 History mcg/actuation nasal congestion spray,suspension sodium chloride 0.65 % nasal spray 1 sprays intranasal UD PRN dry 05/25/19 05/19/25 History aerosol nasal passages Lactobacillus acidophilus 10 10,000 mmu cells PO QAM 12/05/20 05/19/25 History billion cell capsule (Probiotic) acetaminophen 500 mg tablet 1,000 mg PO Q6 PRN Pain 12/05/20 05/19/25 History (Tylenol Extra Strength) meclizine 25 mg chewable tablet 25 mg PO UD PRN Vertigo 01/17/22 05/19/25 History valacyclovir 1 gram tablet 1,000 mg PO DAILY PRN Cold Sores 04/28/22 05/19/25 Rx #30 tabs aspirin 81 mg tablet,delayed 81 mg PO QAM 10/29/23 05/19/25 History release blood pressure monitor #1 ea 01/25/24 05/19/25 Rx nitroglycerin 0.4 mg sublingual 0.4 mg sublingual Q5M PRN chest 03/28/24 05/19/25 Rx tablet pain #25 tabs atorvastatin 20 mg tablet 20 mg PO HS #90 tabs 06/27/24 05/19/25 Rx ranolazine 500 mg tablet,extended 500 mg PO BID #180 tabs 01/02/25 05/19/25 Rx release,12 hr sucralfate 100 mg/mL oral 10 ml PO QID PRN reflux #400 mL 01/24/25 05/19/25 Rx suspension ticagrelor 60 mg tablet 60 mg PO BID #180 tabs 03/20/25 05/19/25 Rx Mimvey 1 mg-0.5 mg tablet 1 tab PO .COMPLEX #28 tabs 03/22/25 05/19/25 Rx (estradiol-norethindrone acet) albuterol sulfate 90 mcg/actuation 2 puff inhalation Q6H PRN SHORT OF 05/03/25 05/19/25 Rx aerosol inhaler BREATH #8.5 grams budesonide-formoterol HFA 80 2 puff inhalation BID PRN Other 05/03/25 05/19/25 Rx mcg-4.5 mcg/actuation aerosol #10.2 grams inhaler (Symbicort) montelukast 10 mg tablet 10 mg PO HS asthma #90 tabs 05/03/25 05/19/25 Rx cyclobenzaprine 10 mg tablet 10 mg PO HS PRN Muscle Spasm 05/18/25 05/19/25 History methocarbamol 500 mg tablet 500 mg PO TID PRN Muscle Spasm 05/18/25 05/19/25 History cholecalciferol (vitamin D3) 25 25 mcg PO QAM 05/19/25 05/19/25 History mcg (1,000 unit) tablet (Vitamin D3) cyanocobalamin (vitamin B-12) 1,000 mcg PO QAM 05/19/25 05/19/25 History 1,000 mcg tablet (Vitamin B-12) multivitamin 1 tab PO QAM 05/19/25 05/19/25 History pantoprazole 40 mg tablet,delayed 40 mg PO QAM 05/19/25 05/19/25 History release Patient History Medical History Substernal chest pain Vertigo Lumbar radiculopathy Degenerative disc disease Hx of basal cell carcinoma Chronic back pain GERD (gastroesophageal reflux disease) Scoliosis Osteoarthritis Actinic keratosis HX Cerebral arterial aneurysm (Carotid-ophthalmic artery region), treated initially with a Pipeline flow diverter 08/2015, with re-do 02/2017 when aneurysm did not occlude ([facility]). Second opinion 09/2019, MRA showed persistent flow into the aneurysm, although smaller than previous. Last neurosurg visit 04/10/20 -- discussed retreatment with new flow diverter device vs continued observation; pt considering options, to f/u in 1 year. LAST NEURO VISIT - OCTOBER 2021 - ANNEURSYM GOT SMALLER FOR THE FIRST TIME IN 5 YR Mammogram abnormal Osteopenia Surgical History History of hysteroscopy S/P aneurysm repair brain aneurysm repair x 2 in 2014 & 2016; reports still an aneurysm present and [place] [facility] [place]; last check 03/2020. LAST CHECK OCTOBER 2021 MRA'S EVERY 6 MON TO EVERY YR - MOST RECENT MRA OCTOBER 2021 Difficult airway for intubation small airway per pt History of esophagogastroduodenoscopy (EGD) (06/2019) Family history of reaction to anesthesia MOTHER-CONFUSION/DELERIUM POST OP AFTER OPEN HEART SURGERY/VALVE REPLACEMENTS History of breast biopsy BENIGN Lumbar spine tumor REMOVED "BENIGN" History of colonoscopy (06/2013) History of rhinoplasty History of tonsillectomy History of section 1985 Family History Father Colorectal cancer Mother Myocardial infarction Heart disease Cerebral aneurysm Grandmother (Maternal) Breast cancer Denies family history of Ovarian cancer Prostate cancer Social History Smoking Status: Never smoker Second Hand Exposure: No; Do You Dip or Chew Tobacco: No; Hx Alcohol Use: Yes Alcohol type: beer and wine Alcohol Intake Frequency: Monthly or Less Hx Substance Use: No Preferred Language: Urdu Communication Ability: Effective Visual Impairment: No Limitations Hearing Ability: Normal Patient Resource Specialist Required: No Beliefs That Will Affect Care: None marital status: Current Living Situation: Spouse current occupational status: retired current occupation: Retired How many Children do You have: 1 Feels Safe at Home: Yes Childhood Exposure to Second-Hand Smoke: Yes Diet: regular caffeine: Yes during the past year weight has: increased > 10 lbs Dental Care, Regularly: Yes Seatbelt Use: always Sunscreen Use: Yes Assistive Devices: None Review of Systems Review of Systems: Per HPI. No sick contacts at home. Some diarrhea associated with today's symptoms. 2 bowel movements so far. No fevers or chills. Chronic back pain. Physical Exam Physical Exam: She is alert and oriented x3. Mood affect appear normal. She answered all questions appropriately. HEENT: Sclerae are anicteric. Pupils are equal and reactive to light and accommodation. Extraocular movements were intact. Neuro: Cranial nerves intact Lungs: Lungs are clear to auscultation bilaterally. There are no rales wheezes or rhonchi. She has normal respiratory effort without use of accessory muscles. There is normal pulmonary excursion. Cardiac: The rhythm was regular with occasional ectopy. S1 and S2 were normal. There are no murmurs on examination. The PMI was not markedly displaced on palpation. Abdomen: The abdomen was soft and nontender. Extremities: Patient has bilateral radial pulses that are equal in intensity. There is no evidence cyanosis or clubbing. There was no evidence of significant peripheral edema bilaterally. Skin: There are no rashes noted on examination today. Results & Data Vital Signs (Past 12 Hours) Vital Signs Temp Pulse Pulse Resp BP BP Pulse Ox 05/19/25 16:00 66 19 122/68 99 05/19/25 15:10 70 18 136/76 97 05/19/25 13:07 79 05/19/25 13:00 79 16 99/62 L 96 05/19/25 11:56 79 130/71 96 05/19/25 09:38 77 23 97 05/19/25 09:38 77 23 133/77 97 05/19/25 09:38 97 05/19/25 09:38 36.5 C 77 23 133/77 97 05/19/25 09:36 76 O2 Del Method 05/19/25 16:00 Room Air 05/19/25 15:10 05/19/25 13:07 05/19/25 13:00 Room Air 05/19/25 11:56 Room Air 05/19/25 09:38 Room Air 05/19/25 09:38 Room Air 05/19/25 09:38 Room Air 05/19/25 09:38 Room Air 05/19/25 09:36 Laboratory Results Abnormal Lab Results 05/19/25 05/19/25 05/19/25 09:28 12:07 14:17 WBC 9.98 RBC 4.73 Hgb 14.1 Hct 42.9 MCV 90.7 MCH 29.8 MCHC 32.9 RDW Std Deviation 45.9 RDW Coeff of Sheela 13.8 Plt Count 221 MPV 9.4 Immature Gran % (Auto) 0.3 Neut % (Auto) 68.3 Lymph % (Auto) 23.0 [place] % (Auto) 6.4 Eos % (Auto) 1.4 Baso % (Auto) 0.6 Neut # (Auto) 6.81 H Lymph # (Auto) 2.30 [place] # (Auto) 0.64 H Eos # (Auto) 0.14 Baso # (Auto) 0.06 Immature Gran # (Auto) 0.03 Sodium 138 Potassium 4.4 Chloride 104 Carbon Dioxide 26 Anion Gap 8 BUN 19 Creatinine 0.82 Est Cr Clr Drug Dosing Not Reportable eGFR 75.95 BUN/Creatinine Ratio 23.2 H Glucose 90 Calcium 10.1 Total Bilirubin 0.6 AST 24 ALT 22 Alkaline Phosphatase 53 Troponin I High Sens 3.4 3.3 Total Protein 7.9 Albumin 4.8 Globulin 3.1 Albumin/Globulin Ratio 1.5 Lipase 15 Urine Color Yellow Urine Appearance Clear Urine pH 5.5 Ur Specific [place] 1.013 Urine Protein Negative Urine Glucose (UA) Negative Urine Ketones Negative Urine Blood Trace H Urine Nitrite Negative Urine Bilirubin Negative Urine Urobilinogen Negative Ur Leukocyte Esterase Negative Urine WBC (Auto) 0-5 Urine RBC (Auto) 6-10 H U Hyaline Cast (Auto) 0-2 U Epithel Cells (Auto) 0-2 Urine Bacteria (Auto) None Seen Urine Comment Diagnostic Findings 1. Coronary artery CTA October 2023 [place]: Nonobstructive LAD CAD reported. 2. Echo 10/30/2023 [facility]: Normal LV size, wall motion, systolic function. EF 60-65%. No LVH. No significant valvular abnormalities. RVSP 23. 3. Cardiac cath 10/30/2023 [facility]: Late proximal/early mid LAD 70 to 80%, involving bifurcation of D1. Small to medium D1 ostial 60%. Dominant RCA. LVEDP 6. No . Underwent proximal to mid LAD PCI with 2.5 x 15 mm Carlos Eduardo DAVINA, postdilated 3 NC. PTCA of ostium of jailed D1 with 2 mm balloon. 4. Echo 03/04/2024 [facility]: Normal LV size, wall motion, systolic function. EF 60- 65%. Mild TR. 5. Cardiac cath 03/04/2024 (Dr. Dale): 95% proximal LAD in-stent restenosis at the origin of previous stent. IVUS demonstrated predominantly thrombus. Jailed D1 ostial 50%. Underwent PCI 3.5 x 15 mm Xience DAVINA (overlapping with previous stent), postdilated with 4 NC. Unable to dilate jailed D1 ostium, with residual moderate ostial stenosis. 6. Cardiac cath 07/20/2024 [facility] (Dr. Dale): Patent proximal to mid LAD stent. Jailed D1 with ostial 40%. Dominant RCA without significant CAD. LVEDP 5. 7. Exercise echocardiogram 04/05/2025: Patient exercised for 6 minutes and exercise discontinued due to hypertension. There is no evidence of inducible ischemia. She did not have "indigestion" or chest pain symptoms. She did become dyspneic and hypoxic. PG Care Time/CCT Total # of Minutes Spent Total Time Spent with Patient: Total time spent is greater than 50% in coordination of care (as documented) at patient's floor/unit and/or counseling patient: Coding Level of Care Code 95055 INT INP/OBS CARE 3/75MIN Diagnoses Chest pain R07.9 CAD (coronary artery disease) I25.10
[2025-05-19] MEDS ORDERED: FLUTICASONE PROPIONATE NA SPR 16 GM BTL NAE PRN (17:53)
[2025-05-19] MEDS ORDERED: SUCRALFATE 1 GM/10 ML UDC PO PRN (17:53)
[2025-05-19] MEDS ORDERED: INFLUENZA VACC TS2025-26(65y+)/PF (IIV3) 0.5mL Syr IM ONE (18:15)
--- NOTE | 2025-05-19 18:49 | Electrocardiogram Report ---
Test Reason : Blood Pressure : */* mmHG Vent. Rate : 73 BPM Atrial Rate : 73 BPM P-R Int : 130 ms QRS Dur : 74 ms QT Int : 396 ms P-R-T Axes : 68 59 52 degrees QTcB Int : 436 ms Normal sinus rhythm Possible Left atrial enlargement Abnormal ECG When compared with ECG of 04-Mar-2024 16:43, No significant change was found Confirmed by Lupillo Ryan ([id number]) on 05/19/2025 6:49:16 PM Referred By: REFERRED SELF Confirmed By: Lupillo Ryan
[2025-05-19] MEDS: TICAGRELOR 60 MG TAB PO SCH (20:24)
[2025-05-19] MEDS: CYCLOBENZAPRINE HCL 10 MG TAB PO SCH (20:24)
[2025-05-19] MEDS: MONTELUKAST SODIUM 10 MG TABLET PO SCH (20:26)
[2025-05-19] MEDS: ATORVASTATIN 20 MG TAB PO SCH (20:26)
[2025-05-19] MEDS: RANOLAZINE 500 MG ER TAB PO SCH (20:27)
[2025-05-19] MEDS: METHOCARBAMOL 500 MG TABLET PO SCH (20:27)
[2025-05-19 22:33] VITALS: O2SAT 98
[2025-05-20 02:47] VITALS: RESP 18
[2025-05-20 06:09] LABS: Hematocrit (blood only) 39.6 % (37.0-47.0); Hemoglobin 13.1 g/dl (12.0-16.0); Immature Granulocytes # (auto) 0.03 K/uL (0.01-0.20); Immature Granulocytes % (auto) 0.5 %; Mean Corpuscular Hemoglobin 29.8 pg (25.0-34.0); Mean Corpuscular Volume 90.0 fL (80.0-100.0); Platelet Count 189 K/uL (130-400); RDW Standard Deviation 44.7 fL (36.4-46.3); Red Blood Count 4.40 M/uL (4.20-5.40); White Blood Count 6.48 K/ul (4.8-10.8)
[2025-05-20 06:28] LABS: Alanine Aminotransferase 18.0 U/L (7-52); Albumin Globulin Ratio 1.8 (0.9-2); Albumin Level 4.2 gm/dl (3.4-5.0); Alkaline Phosphatase 44.0 U/L (34-104); Anion Gap 7.0 (3-11); Bilirubin,Total 0.7 mg/dl (0.2-1.0); Blood Urea Nitrogen 18.0 mg/dl (6-23); Calcium 8.9 mg/dl (8.6-10.3); Carbon Dioxide 25.0 mmol/L (21-32); Chloride 107.0 mmol/L (98-107); Creatinine Clr Calc Pharmacy 53.6 ml/min; Globulin 2.4 gm/dl (2.5-4.0); Glucose 87.0 mg/dl (70-99(Fasting)); Lipase 15.0 U/L (11-82); Potassium 4.2 mmol/L (3.5-5.1); Sodium 139.0 mmol/L (136-145); Total Protein 6.6 gm/dl (6.0-8.3)
[2025-05-20 07:22] VITALS: BP 98/62; TEMP 98.2
[2025-05-20] MEDS: ASPIRIN 81 MG ECTAB PO SCH (08:47)
[2025-05-20] MEDS: ADVANCED PROBIOTIC 625 MG CAPSULE PO SCH (08:47)
[2025-05-20 10:25] VITALS: PULSE 64
--- NOTE | 2025-05-20 10:41 | Discharge Summary ---
Date of Service May 20, 2025 Admission HPI Per Admitting Provider 74 y/o female with history of CAD S/P STENT to LAD awoke overnight into Thursday with heartburn symptoms and one episode of loose watery stool that was very similar to her previous presentation of ND. In fact , in each of her previous documented MIs, the patient reports similar symptoms and medical records also note normal troponin and EKGs initially. S/p LAD PCI x 2 in October 2023 and underwent second PCI on 02/2024 with in-stent restenosis with thrombus. Also noted to have small D1, not amenable to angioplasty and not felt to be severely stenotic. Cardiac cath was repeated on 07/20/2024 for worsening dyspnea on exertion and exertional chest discomfort. Nonobstructive CAD involving jailed D1 was noted but otherwise patent LAD stents and no other obstructive CAD. Troponin negative x 2. EKG reassuring/non acute. CXR with NAD. GI cocktail without improvement. She had a stress test 03/2025 which was negative for ischemia but she did have hypertensive response to exercise and decreased O2 saturation. She was subsequently evaluated by pulmonary medicine but symptoms not thouhgt to be related to pulmonary etiology. She is scheduled for EGD later this month. Reported intolerance to beta-holly (edema) that resolved upon discontinuation. She has not tolerated nitrate therapy due to headaches. Intolerant to rosuvastatin 20 mg daily (dyspepsia), but tolerating atorvastatin.R Given her history and similar symptoms to her prior ND, medicine consulted for admission. Admission Exam (Per Admitting) Constitutional WD/WN, vitals as above ENMT external ear and nose normal, oropharynx normal Respiratory normal respiratory effort, lungs clear to auscultation Cardiovascular RRR, no murmur, no edema Rate/Rhythm: regular rate and regular rhythm Heart Sounds: normal S1 and normal S2 Gastrointestinal (Abdomen) normal bowel sounds, soft, nontender, no hepatosplenomegaly Skin no rashes, warm and dry Psychiatric A+Ox3, euthymic affect Specialty Data Family Medicine Upon day of discharge the patient was without complaints. Pain resolved with evening meal. No pain overnight. Discharge Exam Alert and oriented. NAD CV RRR Lungs clear with non labored respirations. ABD SNT Cardiology Cardiology consultation Discharge Data Consultations 05/19/25 14:01 ED Decision to Admit Stat 05/19/25 15:27 Consult Cardiology Routine Hospital Course (1) Chest pain: (2) GERD (gastroesophageal reflux disease): Plan Chest Pain Atypical presentation but very similar to her previous anginal symptoms Alternative diagnosis GERD, but no relief with GI cocktail. Cardiology consultation Serial troponin negative Repeat EKG unchanged GERD Continue Protonix 40 mg q AM Add Famotidine 40 mg PO qhs EGD as scheduled later this month Asthma Pulmonary note from 05/11 reviewed Lung exam unremarkable Clinically stable; continue home medications Code: Full DVT: Lovenox 40mg SC daily Discharge Instructions Follow up with GI for EGD as scheduled. Added Famotidine QHS in addition to AM PPI. Follow up with PCP.
--- NOTE | 2025-05-20 11:48 | Electrocardiogram Report ---
Test Reason : Blood Pressure : */* mmHG Vent. Rate : 66 BPM Atrial Rate : 66 BPM P-R Int : 138 ms QRS Dur : 72 ms QT Int : 438 ms P-R-T Axes : -22 -3 -7 degrees QTcB Int : 459 ms Normal sinus rhythm Cannot rule out Inferior infarct , age undetermined Abnormal ECG When compared with ECG of 19-May-2025 09:30, Minimal criteria for Inferior infarct are now Present Nonspecific T wave abnormality, worse in Inferior leads Confirmed by Gael Cartagena ([id number]) on 05/20/2025 11:48:28 AM Referred By: REFERRED SELF Confirmed By: Gael Cartagena
--- NOTE | 2025-05-20 11:56 | Electrocardiogram Report ---
Test Reason : Blood Pressure : */* mmHG Vent. Rate : 66 BPM Atrial Rate : 66 BPM P-R Int : 134 ms QRS Dur : 74 ms QT Int : 428 ms P-R-T Axes : 53 66 59 degrees QTcB Int : 448 ms Normal sinus rhythm Normal ECG When compared with ECG of 19-May-2025 16:56, (unconfirmed) Minimal criteria for Inferior infarct are no longer Present ST elevation now present in Inferior leads Nonspecific T wave abnormality no longer evident in Inferior leads Confirmed by Gael Cartagena ([id number]) on 05/20/2025 11:56:01 AM Referred By: REFERRED SELF Confirmed By: Gael Cartagena
== END 2025-05-20 11:50 | disposition home or self-care (01) ==
LOC: 4W 09:24 → ED 09:24 → 4W 17:37